=== PATIENT | male | born 1955 | race Caucasian/White ===

== ENCOUNTER 2022-01-31 15:28 | Emergency (ER) | payer OTHER, SELFPAY ==
[2022-01-31 15:33] VITALS: BP 146/73; PULSE 72; RESP 18; TEMP 36.3; O2SAT 93; BMI 30.8
--- NOTE | 2022-01-31 16:06 | ED.GENADULT ---
HPI - General Adult General Time Seen by Provider: 16:06 Date Seen: 01/31/22 Chief complaint: Extremity Pain/Injury, Upper Stated complaint: Pain in L arm Time Seen by Provider: 01/31/22 16:05 Source: patient and RN notes reviewed Mode of arrival: ambulatory Limitations: no limitations History of Present Illness HPI narrative: Patient started noticing left posterior lateral arm pain Sunday night will just sitting on the couch. He did not remember any injury. He denies any neck pain. He has tried [id number] medicine and the pain continues to get worse. Bothering him to sleep at times. The pain does seem like it is going into the shoulder posteriorly. There is no associated respiratory symptoms with this, no shortness of breath, no cough. No fevers chills. No chest pain with this, no sense of palpitations. Pain does not radiate down the arm, no associated numbness or tingling. He has had a scope done on his rotator cuff on this shoulder before. Sleeping was difficult last night, hurt to try to sleep on that shoulder, had difficult time getting position of comfort. Patient took 1500 mg of Tylenol this morning without any symptoms change. Did take 3 Aleve shortly before coming in and that did help for a while but he feels it is already wearing off. Pain is been getting worse Related Data Home Medications Medication Instructions Recorded Confirmed carbidopa ER 36.25 mg-levodopa 145 cap PO 01/31/22 mg capsule,extended release (Rytary) empagliflozin 25 mg tablet mg 01/31/22 (Jardiance) entacapone 200 mg tablet mg 01/31/22 gabapentin 300 mg capsule mg 01/31/22 metformin 1,000 mg tablet mg 01/31/22 pioglitazone 15 mg tablet mg 01/31/22 ropinirole 3 mg tablet mg 01/31/22 trazodone 100 mg tablet mg 01/31/22 Previous Rx's Medication Instructions Recorded naproxen 500 mg tablet 500 mg PO BID #30 tabs 01/31/22 Allergies Allergy/AdvReac Type Severity Reaction Status Date / Time amoxicillin Allergy Intermediate Verified 01/31/22 15:36 ampicillin Allergy Intermediate Verified 01/31/22 15:36 Review of Systems Status of ROS: Reports: 6 or more systems reviewed and unremarkable except as noted in History and below [facility] Medical History (Updated 01/31/22 @ 18:18 by Alejandra Fox MD) Diabetes Parkinsons Surgical History (Updated 01/31/22 @ 15:40 by Patricia Meyers RN) H/O shoulder surgery History of appendectomy History of tonsillectomy S/P cataract surgery Social History Smoking Status: Never smoker How often do you have a drink containing alcohol: never AUDIT-C Alcohol total score: 0 Non-prescribed substance use: denies use Exam Const: Vital Signs, click to edit/add: Vital Signs - 24 hr 01/31/22 15:33 01/31/22 17:20 Temperature 97.3 F L Pulse Rate [Pulse Oximeter] 72 63 Respiratory Rate 18 Blood Pressure [Ri ght Upper Arm] 146/73 H 138/71 Pulse Oximetry 93 93 Oxygen Delivery Me thod Room Air Room Air Documenting provider has reviewed patient's vital signs: yes Common normals: no apparent distress, oriented x3, no limitations, healthy appearing, alert and well nourished General appearance: cooperative, comfortable and well kempt HENMT: Common normals: normocephalic, head/scalp atraumatic, hearing grossly normal bilaterally and external ears normal Head and scalp: normocephalic and atraumatic External ear: external ears normal Eye: Common normals: PERRL, EOMs intact bilaterally, conjunctivae normal and no scleral icterus Conjunctiva: conjunctiva(e) normal Pupil: PERRL Neck & C-Spine: Common normals: full ROM (No facet impingement symptoms on range of motion), no lymphadenopathy, supple, no meningeal signs, no JVD and thyroid normal Thyroid: thyroid normal Lymph: Lymphatic: no lymphadenopathy noted Chest: Common normals: inspection of chest normal and palpation of chest normal Resp: Common normals: normal respiratory effort, no retractions, no use of accessory muscles and clear to auscultation bilaterally Auscultation: clear to auscultation bilaterally Cardio: Common normals: no JVD, regular rate, regular rhythm, S1 normal heart sound, S2 normal heart sound, no gallops, no clicks and no murmurs Rate: regular rate Rhythm: regular rhythm Heart sounds: S1 normal and S2 normal Extremity: Common normals: normal to inspection and normal capillary refill Other: No palpable tenderness over the glenohumeral joint or the clavicle. Has pain on range of motion with arc of abduction over 90?. Has pain when he attempts to reach behind his back with his left arm but not his right. When I have him externally rotate with his upper arm juxtaposed to the side there is pain. Internal rotation the same position does not bother him. He has palpable tenderness in the upper inner humeral area in muscular distribution. I feel no palpable abnormality of the bone. He has full range of motion of his elbow without any discomfort, no symptoms below the upper arm in this extremity. Biceps testing is intact. Does not have pain when he places his arm across his chest or when I do supraspinatus impingement testing. Neuro: Common normals: oriented x3 Sensorium/orientation: alert Meningeal signs: no meningeal signs Psych: Appearance: well kempt Course Course Hospital Course: I suspect rotator cuff pathology and will obtain an x-ray. He does have diabetes and is on cholesterol medicine and will just obtain a total CK to rule out myositis, obtain EKG and troponin. A do not suspect cardiac disease but do feel it prudent to rule this out. Reevaluation(s) Reevaluation #1: Reviewed with patient that his EKG is normal, awaiting radiology over-read of this shoulder xray. He wanted to know if they would be able to diagnose rotator cuff pathology off of xray. Reviewed with him that imaging for that really is with MRI which is not emergently needed. He very well may need follow up with orthopedics for this, they may opt to order this if felt needed/indicated. Awaiting labs as well to r/o cardiac pathology and myositis. Time: 17:22 Vital Signs Vital signs: Initial Vital Signs Temperature 97.3 F L 01/31/22 15:33 Temperature Source Temporal Artery Scan 01/31/22 15:33 Pulse Rate 72 01/31/22 15:33 Respiratory Rate 18 01/31/22 15:33 Blood Pressure 146/73 H 01/31/22 15:33 Blood Pressure Mean 97 01/31/22 15:33 Blood Pressure Position Supine 01/31/22 15:33 Pulse Oximetry 93 01/31/22 15:33 Oxygen Delivery Method 01/31/22 15:33 Vital Signs Temperature 97.3 F L 01/31/22 15:33 Pulse Rate 72 01/31/22 15:33 Respiratory Rate 18 01/31/22 15:33 Blood Pressure 146/73 H 01/31/22 15:33 Pulse Oximetry 93 01/31/22 15:33 Oxygen Delivery Method 01/31/22 15:33 Temperature 97.3 F L 01/31/22 15:33 Pulse Rate 63 01/31/22 17:20 Respiratory Rate 18 01/31/22 15:33 Blood Pressure 138/71 01/31/22 17:20 Pulse Oximetry 93 01/31/22 17:20 Oxygen Delivery Method 01/31/22 17:20 Medical Decision Making Lab Data Lab results reviewed: Yes I reviewed the patient's lab results Labs: Lab Results 01/31/22 01/31/22 Range/Units 16:50 16:50 Total Creatine Kinase 34 L (54-186) U/L Troponin I < 0.01 L (0.01-0.04) ng/mL Imaging Data X-ray left shoulder: Attestation: I have reviewed the pertinent imaging results. Radiologist's impression: Patient: JER DUMONT Facility:?[facility] Patient ID:?[id number] Site Patient ID:?[id number]. Site :?1955 Study:?XRay Shoulder Left -01/31/2022 4:32:56 PM Ordering Physician:Tamir Roberts Final Report: Indication: Pain, rotator cuff issues. Technique: Three views of the left shoulder. Comparison: None Findings/Impression: No acute fracture or dislocation. 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 Mild degenerative changes of the left acromioclavicular joint. Visualized portions of the left lung are grossly clear. Dictated by Yuriy Monson MD @ 01/31/2022 5:12:39 PM (Electronic Signature) ECG Data Attestation: I personally reviewed and interpreted this ECG as follows: (Sinus rhythm, 67 beats per minute) Prior ECG tracings: not available for review Critical Care Time Critical Care Time Critical Care Time: No Discharge Plan Discharge Clinical Impression: Disorder of left rotator cuff Patient Disposition: Home, Self-Care Condition: Stable Instructions: Shoulder Bursitis (ED), Shoulder Pain (ED) Additional Instructions: Take Tylenol 1000 mg 3 times a day baseline for pain. Use Naprosyn as prescribed. Can use tramadol at bedtime, needs 6-[address] Can try a senior shoulder, stop if it increases your pain. Need to follow up with Orthopedics. The orthopedic office for [place] can be contacted [phone] to get scheduled for followup. Otherwise follow up with primary care provider or orthopedist of choice. Tramadol is technically a narcotic, I have written for 50 mg, 1-2 at bedtime as needed, 10 prescribed. Activity Level: Activity as Tolerated Prescriptions: New naproxen 500 mg tablet 500 mg PO BID Qty: 30 2RF No Action pioglitazone 15 mg tablet Label Comments: TAKE ONE TABLET BY MOUTH ONE TIME DAILY ropinirole 3 mg tablet Label Comments: TAKE ONE TABLET BY MOUTH THREE TIMES DAILY entacapone 200 mg tablet Label Comments: TAKE ONE TABLET BY MOUTH THREE TIMES DAILY trazodone 100 mg tablet Label Comments: TAKE ONE OR TWO TABLETS BY MOUTH DAILY AT BEDTIME NEEDED FOR SLEEP metformin 1,000 mg tablet Label Comments: TAKE ONE TABLET BY MOUTH TWICE A DAY WITH MEALS gabapentin 300 mg capsule Label Comments: TAKE ONE CAPSULE BY MOUTH THREE TIMES DAILY Jardiance 25 mg tablet Label Comments: TAKE ONE TABLET BY MOUTH ONE TIME DAILY Rytary 36.25-145 mg capsule, extended release PO Label Comments: TAKE THREE CAPSULES BY MOUTH THREE TIMES DAILY Stand Alone Forms: My[facility] Info Instructions
--- NOTE | 2022-01-31 16:16 | CRLHL7_ITS ---
For Patients: As a result of the Cures Act, medical imaging exams and procedure reports are released immediately into your electronic medical record. You may view this report before your referring provider. If you have questions, please contact your health care provider. Indication: Pain, rotator cuff issues. Technique: Three views of the left shoulder. Comparison: None Findings/Impression: No acute fracture or dislocation. 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 Mild degenerative changes of the left acromioclavicular joint. Visualized portions of the left lung are grossly clear. Dictated by Yuriy Monson MD @ 01/31/2022 5:12:39 PM (Electronically Signed)
[2022-01-31 17:20] VITALS: BP 138/71; PULSE 63; O2SAT 93
[2022-01-31 17:27] LABS: Creatine Kinase* 34 U/L (54-186)
[2022-01-31 17:58] LABS: Troponin I* < 0.01 ng/mL (0.01-0.04)
== END 2022-01-31 18:49 | disposition home or self-care (01) ==
PROVIDERS: Emergency Provider Family Medicine
DX: M75.52 Bursitis of left shoulder (principal)
CPT/HCPCS: 36415; 73030; 82550; 84484; 93005; 99283; 99284

== ENCOUNTER 2022-02-17 14:53 | Outpatient (CLI) | payer OTHER, SELFPAY ==
--- NOTE | 2022-02-17 15:30 | MR_ITS ---
[address] [address] Phone:?[phone] Fax:?[phone] Referring Physician Information: Malachi Dixon M.D. [id number] [facility] [address] Phone:?[phone] Fax:?[phone] Patient:?Cristobal Lai D.O.B:?1955 Sex:?Male Phone:?[phone] [facility] MRN:?[id number] Exam Date:?02/17/2022 ? EXAM: MRI of the LEFT SHOULDER, without contrast CLINICAL: Male, 66 years old, with left shoulder pain. INDICATION: Evaluate for rotator cuff tear versus other shoulder derangement etiology. PRIOR SURGERY: None reported. PLAIN FILMS: None available. COMPARISONS: No prior MRIs available. TECHNICAL: Using a 1.5T MR scanner and a localizing shoulder surface coil: 3.0 mm?coronal obliques: PD, T2, STIR 3.0 mm?sagittal obliques: PD, T2 3.0 mm?axials: PD, T2 SEDATION: None. CONTRAST: None. IMPRESSION: 1. Rather broad-based deep surface greater than superficial surface tendinosis and attenuation of the supraspinatus into adjacent infraspinatus tendons, but without full-thickness tear. 2. Inferior hypertrophy of the acromioclavicular joint contributes encroachment upon the subacromial space, whereas acromiohumeral distance otherwise appears normal. 3. Mild subacromial bursal edema. 4. Mild tendinosis of the distal intra-articular segment of the long head of the biceps tendon. 5. No labral tears. 6. No glenohumeral chondromalacia/osteoarthritis. FINDINGS: Glenohumeral joint: Effusion/cyst: Physiologic effusion. No paralabral ganglion cyst. Articular cartilage: Humeral head: No osteochondral abnormalities. Glenoid: No osteochondral abnormalities. Loose bodies: No demonstrable loose bodies. Inferior glenohumeral ligament/axillary recess: The axillary recess is normal in thickness and signal. No evidence of adhesive capsulitis or capsuloligamentous injury. Labrum: No labral tears. Bones: Proximal humerus: No fracture or marrow edema/pathology. No humeral Hill-Sachs or reverse Hill-Sachs lesion/impaction or contusion. Glenoid: No fracture or marrow edema/pathology. No osseous Bankart lesion. Coracoacromial arch: Acromion morphology: Type I acromion without defined subacromial spur/enthesophyte. No mesoacromion or preacromion. Acromiohumeral space: Widely patent. Coracohumeral space: Widely patent. Acromioclavicular joint: Joint: Inferior hypertrophy of the distal clavicular facet of the acromioclavicular joint contributes encroachment upon the subacromial space where it abuts and mildly encroaches upon contour of the underlying supraspinatus myotendinous junction (coronal PD series 5, image 10; sagittal PD series 7, image 14). Ligaments: Coracoclavicular ligaments are intact. Bursae: Subacromial-subdeltoid: Mild subacromial bursal edema (coronal STIR series 4, images 15-9). Subcoracoid: No convincing subcoracoid bursal thickening/bursitis. Rotator cuff and muscles/tendons: Supraspinatus-infraspinatus: Relatively chronic-appearing deep surface tendinosis and attenuation of the distal supraspinatus tendon and adjacent anterior infraspinatus tendon involves approximately 50% tendon thickness without full-thickness tear although note also made of a smaller area of shallow superficial bursal surface fraying/wear of the distal mid supraspinatus tendon (coronal images 16-8). No tendon or myotendinous junction retraction. No muscle atrophy. Teres minor: No tendinopathy, tear or atrophy. Subscapularis: No tendinopathy, tear or atrophy. Deltoid: No strain or atrophy. Biceps tendon, long head: Mild thickening in keeping with mild tendinosis of the distal intra-articular segment of the long head of the biceps tendon (sagittal PD series 7, images 10-7). Axilla: No axillary masses or abnormally enlarged lymphadenopathy. [facility] Electronically signed on 02/20/2022 6:30:00 AM by Solo Mcdaniel M.D.
== END 2022-02-17 14:54 | disposition home or self-care (01) ==
LOC: MRI 14:55
PROVIDERS: Visit Provider Orthopaedic Surgery Sports Medicine
DX: M25.512 Pain in left shoulder (principal); M75.102 Unspecified rotator cuff tear or rupture of left shoulder, not specified as traumatic; S46.002A Unspecified injury of muscle(s) and tendon(s) of the rotator cuff of left shoulder, initial encounter
CPT/HCPCS: 73221

== ENCOUNTER 2022-09-06 12:58 | Outpatient (CLI) | payer OTHER, SELFPAY | END 2022-09-06 12:59 | disposition home or self-care (01) | LOC: AMB 09-07 00:18 | PROVIDERS: Visit Provider Family Medicine | DX: R41.82 Altered mental status, unspecified (principal); R47.81 Slurred speech | CPT/HCPCS: A0425; A0427 ==

== ENCOUNTER 2022-09-06 13:26 | Emergency (ER) | payer OTHER, SELFPAY ==
[2022-09-06] VITALS (9 sets, daily range): BP systolic 129; BP diastolic 82; PULSE 62–80; RESP 18; TEMP 36.8; O2SAT 95–98
--- NOTE | 2022-09-06 14:03 | ED.NEUROSD ---
HPI - Neuro Symptoms/Deficit General Time Seen by Provider: 14:04 Date Seen: 09/06/22 Chief Complaint: Neuro Symptoms/Altered Deficit Stated Complaint: Stroke symptoms Time Seen by Provider: 09/06/22 13:55 Source: patient, EMS and RN notes reviewed Mode of arrival: EMS Limitations: no limitations History of Present Illness HPI Narrative: Patient is a 67-year-old male with underlying Parkinson's who is coming in with episodic slurred speech. It has been happening intermittently today. He denies feeling ill, has not had any cough or cold symptoms, no fevers or chills. He is noted to have a right arm tremor which is not abnormal. His daughter is present, she feels at times she notes some speech change but it is intermittent. He reportedly has had a history of a TIA. His daughter states she was with them for 1 of the TIAs and just seemed to be out of it, altered. They cannot give me a specific neurologic symptom. Patient feels like his speech is normal now. Is not aware of any changes in his face, no appreciable differences in movement of his arms or legs. His daughter notes he has had a history of concussions before as well. Denies any current fall. Yesterday did note some palpitations or fluttering sensation over on his left chest. No pain. Is not noted to have a history of arrhythmia or atrial fibrillation. Reviewed with them that his initial EKG looks normal and on the monitor thus far, have seen no arrhythmia. Timing confirmed by: family member Location: speech History of same: No (Not that they are aware of) Related Data Home Medications Medication Instructions Recorded Confirmed empagliflozin 25 mg tablet mg 01/31/22 02/21/22 (Jardiance) entacapone 200 mg tablet mg 01/31/22 02/21/22 gabapentin 300 mg capsule mg 01/31/22 02/21/22 metformin 1,000 mg tablet mg 01/31/22 02/21/22 pioglitazone 15 mg tablet mg 01/31/22 02/21/22 ropinirole 3 mg tablet mg 01/31/22 02/21/22 trazodone 100 mg tablet mg 01/31/22 02/21/22 carbidopa ER 23.75 mg-levodopa 95 cap PO DAILY 02/21/22 02/21/22 mg capsule,extended release Previous Rx's Medication Instructions Recorded naproxen 500 mg tablet 500 mg PO BID #30 tabs 01/31/22 Allergies Allergy/AdvReac Type Severity Reaction Status Date / Time amoxicillin Allergy Intermediate Verified 02/21/22 14:29 ampicillin Allergy Intermediate Verified 02/21/22 14:29 Review of Systems Status of ROS: Reports: 10 or more systems reviewed and unremarkable except as noted in History and below [facility] Medical History (Updated 09/06/22 @ 17:15 by Alejandra Fox MD) Anxiety ?F41.9 - Anxiety disorder, unspecified (ICD-10) Arthritis ?M19.90 - Unspecified osteoarthritis, unspecified site (ICD-10) Depression ?F32.A - Depression, unspecified (ICD-10) Detached retina ?H33.20 - Serous retinal detachment, unspecified eye (ICD-10) Diabetes ?E11.9 - Type 2 diabetes mellitus without complications (ICD-10) Neck pain ?M54.2 - Cervicalgia (ICD-10) Parkinsons ?G20 - Parkinson's disease (ICD-10) Stroke ?I63.9 - Cerebral infarction, unspecified (ICD-10) Surgical History H/O shoulder surgery (~2007) History of appendectomy History of tonsillectomy S/P cataract surgery Family History (Updated 02/07/22 @ 13:26 by Annalee Abraham ~ RN, RN) Other Diabetes Skin cancer Stroke Social History (Reviewed 02/21/22 @ 14:31 by Dalila Spivey ~ [facility] PRICER, [facility]) Smoking Status: Never smoker Do you use any of these nicotine containing products: None Second hand tobacco smoke exposure: No How often do you have a drink containing alcohol: never How often do you have six or more drinks on one occasion: Never AUDIT-C Alcohol total score: 0 Non-prescribed substance use: denies use service: No Exam Const: Vital Signs, click to edit/add: Vital Signs - 24 hr 09/06/22 13:32 09/06/22 14:10 09/06/22 14:18 Temperature 98.3 F Pulse Rate 72 Pulse Rate [Right Pulse Oximeter] 80 Respiratory Rate 18 Blood Pressure [Ri ght Upper Arm] 129/82 Pulse Oximetry 95 97 96 Oxygen Delivery Me thod Room Air 09/06/22 14:30 09/06/22 15:00 Temperature Pulse Rate 69 68 Pulse Rate [Right Pulse Oximeter] Respiratory Rate Blood Pressure [Ri ght Upper Arm] Pulse Oximetry 97 96 Oxygen Delivery Me thod Documenting provider has reviewed patient's vital signs: yes Common normals: no apparent distress, average body habitus, oriented x3, no limitations, healthy appearing and alert General appearance: cooperative, comfortable, well kempt, well developed and frail appearing Orientation/consciousness: Yes awake, Yes oriented to person, Yes oriented to place and Yes oriented to time HENMT: Common normals: normocephalic, head/scalp atraumatic, hearing grossly normal bilaterally, external nose normal, nasal mucous membranes and turbinates normal, moist oral mucous membranes, oropharynx normal, dentition normal and gingiva normal Head and scalp: normocephalic and atraumatic Nose: external nose normal and nasal mucous membranes and turbinates normal Eye: Common normals: PERRL, EOMs intact bilaterally, conjunctivae normal and no scleral icterus Conjunctiva: conjunctiva(e) normal Pupil: PERRL Neck & C-Spine: Common normals: full ROM, no lymphadenopathy, supple, no meningeal signs, no JVD and thyroid normal Thyroid: thyroid normal Resp: Common normals: normal respiratory effort, no retractions, no use of accessory muscles and clear to auscultation bilaterally Auscultation: clear to auscultation bilaterally Cardio: Common normals: no JVD, regular rate, regular rhythm, S1 normal heart sound, S2 normal heart sound, no gallops, no clicks and no murmurs Rate: regular rate Rhythm: regular rhythm Heart sounds: S1 normal and S2 normal GI: Common normals: Normal to inspection, nondistended, normoactive bowel sounds present, soft to palpation, non-tender, no hepatosplenomegaly and no masses Palpation: soft and no hepatosplenomegaly Neuro: Common normals: oriented x3 Sensorium/orientation: awake, alert, oriented to person, oriented to place and oriented to time Meningeal signs: no meningeal signs Other: Speech seems normal, symmetrical facial function. Normal sensation of his face and extremities. Can lift each leg off the bed independently. Baseline has a right arm tremor that is noted. Strength is about 3/5 and seems to be symmetric in both of his upper extremities. Seems to have global diminished strength. Psych: Appearance: well kempt Course Course Hospital Course: Will proceed with head CT followed by a angio CT of head neck. He will be maintained on cardiac monitoring to ensure no underlying arrhythmia, pulse oximetry as well. Will get appropriate labs including cardiac labs. His blood pressure is not elevated at this time but may run lower given that he has Parkinson's. Parkinson's could affect presentation of his neurologic status. Believe we should proceed with the head and neck angio of the head CT is not showing any bleed as it may be difficult to differentiate neurologic changes in this patient. May need to talk to Stroke Neuro. Does not seem to have any evidence of any infectious etiology at this time. Reevaluation(s) Reevaluation #1: Have reviewed with patient and his son, son is an EMT and he was allowed to come in and switch out with his sister, that head CT and CTA are not showing any acute pathology. He has a normal troponin, no evidence of any arrhythmia on his monitoring thus far. Will attempt to talk to Stroke Neurology, see if they have any additional recommendations. Do wonder if some of the speech issues could also be contributed to by Parkinson's. Time: 15:58 Reevaluation #2: Have reviewed my conversation with the stroke neurologist with patient and his son. Discussed that the stroke neurologist feels this to be less likely vascular ischemic process but maybe more encephalopathic or symptomatic changes of a brain that is more susceptible. There is certainly no localizing features right now. He agrees that autonomic problems orthostatic hypotension could be a possible causative etiology here. Confirmed with the patient that he does take 81 mg of aspirin daily. Did discuss that he could consider going on a statin given that there is some mild atherosclerotic changes seen in his right coronary artery. There certainly nothing to identify a stroke. There would be certainly more likely etiologies per the stroke neurologist rather than a TIA. His son whom is a police and fire dispatcher is here. He notes when he talked to his dad earlier it was quite slurred speech. He is improved. His lactate is up. He states he has had some Gatorade in a chocolate milk and a little bit of apple juice. It certainly sounds like he could be mildly dry. Were going to give him a 500 mL fluid bolus and then ambulate him. They understand that we cannot 100% rule out a TIA but the fact that he is back to baseline and we have more plausible etiologies to consider, will likely discharge to home with recommendations to follow up with his primary care provider as well as his neurologist. He was not hypertensive on arrival which is another thing reviewed with the patient and his son that generally would point against cerebral ischemic disease. Time: 16:36 Reevaluation #3: Nursing staff notes that patient ambulated quite well, is feeling better. No recurrent symptoms. Time: 17:22 Consultations Consultation #1: Spoke with Dr. Preciado the stroke neurologist, had a 9 minute 33 second conversation. Please see above where I review with the patient. Time: 16:28 Vital Signs Vital signs: Initial Vital Signs Temperature 98.3 F 09/06/22 13:32 Temperature Source Temporal Artery Scan 09/06/22 13:32 Pulse Rate 80 09/06/22 13:32 Respiratory Rate 18 09/06/22 13:32 Blood Pressure 129/82 09/06/22 13:32 Blood Pressure Mean 97 09/06/22 13:32 Blood Pressure Position Sitting 09/06/22 13:32 Pulse Oximetry 95 09/06/22 13:32 Oxygen Delivery Method Room Air 09/06/22 13:32 Vital Signs Temperature 98.3 F 09/06/22 13:32 Pulse Rate 80 09/06/22 13:32 Respiratory Rate 18 09/06/22 13:32 Blood Pressure 129/82 09/06/22 13:32 Pulse Oximetry 95 09/06/22 13:32 Oxygen Delivery Method Room Air 09/06/22 13:32 Temperature 98.3 F 09/06/22 13:32 Pulse Rate 68 09/06/22 15:00 Respiratory Rate 18 09/06/22 13:32 Blood Pressure 129/82 09/06/22 13:32 Pulse Oximetry 96 09/06/22 15:00 Oxygen Delivery Method Room Air 09/06/22 13:32 MDM - Neuro Symptoms/Deficit Lab Data Attestation: I reviewed the patient's lab results. Labs: Lab Results 09/06/22 Range/Units 14:28 WBC 7.17 (4.50-11.00) K/uL RBC 5.06 (4.30-5.90) m/uL Hgb 15.1 (13.5-17.5) gm/dL Hct 44.2 (37.0-53.0) % MCV 87 (80-100) fL MCH 30 (26-34) pg MCHC 34 (32-36) gm/dL RDW Coeff of Christine 13.1 (11.5-15.5) % Plt Count 193 (140-440) K/uL Neut % (Auto) 42.2 (42.0-72.0) % Lymph % (Auto) 46.6 H (20-44) % [place] % (Auto) 8.6 (0.0-11.0) % Eos % (Auto) 1.5 (0.0-7.0) % Baso % (Auto) 0.4 (0.0-3.0) % Neut # (Auto) 3.02 (1.7-7.0) K/uL Lymph # (Auto) 3.30 H (0.90-2.90) K/uL Sol[place] # (Auto) 0.60 (0.00-0.90) K/UL Eos # (Auto) 0.11 (0.00-0.50) K/uL Baso # (Auto) 0.03 (0.00-0.30) K/uL Sodium 136 (135-149) mmol/L Potassium 4.2 (3.6-5.1) mmol/L Chloride 103 (96-114) mmol/L Carbon Dioxide 23 (20-32) mmol/L BUN 10 (7-30) mg/dL Creatinine 0.5 (0.5-1.5) mg/dL Estimated GFR 113 ml/min Glucose 279 H (60-115) mg/dL Lactate 3.4 H (0.5-1.9) mmol/L Calcium 8.6 (8.4-10.6) mg/dL Magnesium 1.7 (1.5-2.6) mg/dL Total Bilirubin 0.4 (0.1-1.5) mg/dL AST 26 (12-35) U/L ALT 26 (4-50) U/L Alkaline Phosphatase 57 (40-150) U/L C-Reactive Protein 0.6 (0.5-1.0) mg/dL NT-Pro-B Natriuret Pep 185 pg/mL Total Protein 6.7 (6.0-8.3) g/dL Albumin 3.8 (3.3-5.0) g/dL SARS-CoV-2 (PCR) Negative SARS-CoV-2 (Negative) POC Troponin I 0.00 L (0.01-0.04) ng/ml Imaging Data CT scan - head: Attestation: I have reviewed the pertinent imaging results. Radiologist's impression: Patient: JER DUMONT Facility:?[facility] Patient ID:?[id number] Site Patient ID:?[id number]. Site :?1955 Study:?CT Head WO-09/06/2022 3:01:26 PM Ordering Physician:?Ruddy Roberts Final Report: INDICATION: Acute stroke, slurred speech. TECHNIQUE: CT head without contrast. FINDINGS: There is no intracranial hemorrhage. The liu white matter differentiation is maintained. The ventricles and cisterns are clear. IMPRESSION: No acute intracranial abnormality at noncontrast CT. Please note that all CT scans at this facility use dose modulation, iterative reconstruction, and/or weight-based dosing when appropriate to reduce radiation dose to as low as reasonably achievable. Dictated by Haja Gary MD @ 09/06/2022 3:12:17 PM (Electronic Signature) CT- Other: Attestation: I have reviewed the pertinent imaging results. Radiologist's impression: Patient: JER DUMONT Facility:?[facility] Patient ID:?[id number] Site Patient ID:?[id number]. Site :?1955 Study:?CT Neck Angio Angio CTA HEAD AND NECK-09/06/2022 3:05:36 PM Ordering Physician:?Ruddy Roberts Final Report: INDICATION: Acute stroke, slurred speech. TECHNIQUE: CTA neck with contrast bolus tracking and 3D MIP reconstruction. FINDINGS: There is carotid atherosclerosis bilaterally. There is a mild stenosis at the origin of the right ICA, less than 50% by NASCET. There is no significant left carotid artery stenosis or dissection. There is no significant vertebral artery stenosis or dissection. The soft tissues of the neck are within normal limits. The cervical spine is in normal alignment. IMPRESSION: Carotid atherosclerosis with a mild stenosis of the proximal right ICA, less than 50% by NASCET. Please note that all CT scans at this facility use dose modulation, iterative reconstruction, and/or weight-based dosing when appropriate to reduce radiation dose to as low as reasonably achievable. Dictated by Haja Gary MD @ 09/06/2022 3:18:37 PM (Electronic Signature) Patient: JER DUMONT Facility:?[facility] Patient ID:?[id number] Site Patient ID:?[id number]. Site :?1955 Study:?CT Head Angio Angio CTA HEAD AND NECK-09/06/2022 3:06:17 PM Ordering Physician:Tamir Roberts Final Report: INDICATION: Acute stroke, slurred speech. TECHNIQUE: CTA head with contrast bolus tracking and 3D MIP reconstruction. FINDINGS: There is normal opacification of the intracranial vasculature. There is no large vessel occlusion. No aneurysm is identified. IMPRESSION: Unremarkable head CTA. Please note that all CT scans at this facility use dose modulation, iterative reconstruction, and/or weight-based dosing when appropriate to reduce radiation dose to as low as reasonably achievable. Dictated by Haja Gary MD @ 09/06/2022 3:15:22 PM (Electronic Signature) ECG Data Attestation: I personally reviewed and interpreted this ECG as follows: (Normal sinus rhythm, 78 beats per minute. No ischemia, no arrhythmia. QT corrected 435 milliseconds.) ECG interpretation date: 09/06/22 ECG interpretation time: 14:21 Prior ECG tracings: not available for review Critical Care Time Critical Care Time Critical Care Time: No Discharge Plan Discharge Clinical Impression: Speech abnormality, Parkinsons Patient Disposition: Home, Self-Care Condition: Stable Instructions: Transient Ischemic Attack (ED), Ischemic Stroke (DC) Additional Instructions: Information is provided for Education on TIA and stroke. Would consider you talking to her primary care provider about going on a statin such as Lipitor. There was non occlusive atherosclerotic disease seen in the right coronary artery. There was no evidence of stroke pathology. There are autonomic issues in orthostatic blood pressure issues that can develop with Parkinson's. It is important that you drink adequately to maintain your blood volume and not become dehydrated. It is recommended that you follow-up with your primary care provider as well as the neurologist. Have provided copies of your imaging tests that you can take to them. If you do have recurrent issues, other issues concerning for possible stroke pathology, do recommend re-evaluation in the emergency room in the interim. Definitely stay on your 81 mg aspirin. Activity Level: Activity as Tolerated Prescriptions: No Action carbidopa-levodopa 23.75-95 mg capsule, extended release PO DAILY pioglitazone 15 mg tablet Patient Comments: TAKE ONE TABLET BY MOUTH ONE TIME DAILY ropinirole 3 mg tablet Patient Comments: TAKE ONE TABLET BY MOUTH THREE TIMES DAILY entacapone 200 mg tablet Patient Comments: TAKE ONE TABLET BY MOUTH THREE TIMES DAILY trazodone 100 mg tablet Patient Comments: TAKE ONE OR TWO TABLETS BY MOUTH DAILY AT BEDTIME NEEDED FOR SLEEP metformin 1,000 mg tablet Patient Comments: TAKE ONE TABLET BY MOUTH TWICE A DAY WITH MEALS gabapentin 300 mg capsule Patient Comments: TAKE ONE CAPSULE BY MOUTH THREE TIMES DAILY Jardiance 25 mg tablet Patient Comments: TAKE ONE TABLET BY MOUTH ONE TIME DAILY naproxen 500 mg tablet 500 mg PO BID Qty: 30 2RF Follow Up/Referrals: Provider,Not a Local [Primary Care Provider] - Stand Alone Forms: [facility] Info Instructions
--- NOTE | 2022-09-06 14:10 | CRLHL7_ITS ---
For Patients: As a result of the Century Cures Act, medical imaging exams and procedure reports are released immediately into your electronic medical record. You may view this report before your referring provider. If you have questions, please contact your health care provider. INDICATION: Acute stroke, slurred speech. TECHNIQUE: CT head without contrast. FINDINGS: There is no intracranial hemorrhage. The liu white matter differentiation is maintained. The ventricles and cisterns are clear. IMPRESSION: No acute intracranial abnormality at noncontrast CT. Please note that all CT scans at this facility use dose modulation, iterative reconstruction, and/or weight-based dosing when appropriate to reduce radiation dose to as low as reasonably achievable. Dictated by Haja Gary MD @ 09/06/2022 3:12:17 PM (Electronically Signed)
--- NOTE | 2022-09-06 14:10 | CRLHL7_ITS ---
For Patients: As a result of the Century Cures Act, medical imaging exams and procedure reports are released immediately into your electronic medical record. You may view this report before your referring provider. If you have questions, please contact your health care provider. INDICATION: Acute stroke, slurred speech. TECHNIQUE: CTA head with contrast bolus tracking and 3D MIP reconstruction. FINDINGS: There is normal opacification of the intracranial vasculature. There is no large vessel occlusion. No aneurysm is identified. IMPRESSION: Unremarkable head CTA. Please note that all CT scans at this facility use dose modulation, iterative reconstruction, and/or weight-based dosing when appropriate to reduce radiation dose to as low as reasonably achievable. Dictated by Haja Gary MD @ 09/06/2022 3:15:22 PM (Electronically Signed)
--- NOTE | 2022-09-06 14:10 | CRLHL7_ITS ---
For Patients: As a result of the Century Cures Act, medical imaging exams and procedure reports are released immediately into your electronic medical record. You may view this report before your referring provider. If you have questions, please contact your health care provider. INDICATION: Acute stroke, slurred speech. TECHNIQUE: CTA neck with contrast bolus tracking and 3D MIP reconstruction. FINDINGS: There is carotid atherosclerosis bilaterally. There is a mild stenosis at the origin of the right ICA, less than 50% by NASCET. There is no significant left carotid artery stenosis or dissection. There is no significant vertebral artery stenosis or dissection. The soft tissues of the neck are within normal limits. The cervical spine is in normal alignment. IMPRESSION: Carotid atherosclerosis with a mild stenosis of the proximal right ICA, less than 50% by NASCET. Please note that all CT scans at this facility use dose modulation, iterative reconstruction, and/or weight-based dosing when appropriate to reduce radiation dose to as low as reasonably achievable. Dictated by Haja Gary MD @ 09/06/2022 3:18:37 PM (Electronically Signed)
[2022-09-06 14:36] LABS: Lactate* 3.4 mmol/L (0.5-1.9)
[2022-09-06 14:38] LABS: Basophils Absolute Auto 0.03 K/uL (0.00-0.30); Basophils Percent Auto 0.4 % (0.0-3.0); Eosinophils Absolute Auto 0.11 K/uL (0.00-0.50); Eosinophils Percent Auto 1.5 % (0.0-7.0); Hematocrit 44.2 % (37.0-53.0); Hemoglobin* 15.1 gm/dL (13.5-17.5); Immature Granulocytes Abs Auto 0.05 K/uL (0.00-0.30); Immature Granulocytes Pct Auto 0.7 %; Lymphocytes Percent Auto 46.6 % (20-44); Mean Corpuscular HGB Conc 34 gm/dL (32-36); Mean Corpuscular Hemoglobin 30 pg (26-34); Mean Corpuscular Volume 87 fL (80-100); Monocytes Percent Auto 8.6 % (0.0-11.0); Neutrophils Absolute Auto 3.02 K/uL (1.7-7.0); Neutrophils Percent Auto 42.2 % (42.0-72.0); Platelet Count* 193 K/uL (140-440); RDW Coefficient of Variation % 13.1 % (11.5-15.5); Red Blood Count 5.06 m/uL (4.30-5.90); White Blood Count* 7.17 K/uL (4.50-11.00)
[2022-09-06 14:44] LABS: Slide Review Reflex No
[2022-09-06 14:54] LABS: Albumin* 3.8 g/dL (3.3-5.0); Chloride* 103 mmol/L (96-114); Potassium* 4.2 mmol/L (3.6-5.1); Sodium* 136 mmol/L (135-149)
[2022-09-06 14:56] LABS: Creatinine* 0.5 mg/dL (0.5-1.5); Estimated Glomerular Filt Rate 113 ml/min
[2022-09-06 14:57] LABS: Alkaline Phosphatase* 57 U/L (40-150); Aspartate Amino Transferase* 26 U/L (12-35); Bilirubin Total* 0.4 mg/dL (0.1-1.5); Blood Urea Nitrogen* 10 mg/dL (7-30); Carbon Dioxide* 23 mmol/L (20-32); Glucose* 279 mg/dL (60-115); Total Protein* 6.7 g/dL (6.0-8.3)
[2022-09-06 14:58] LABS: Alanine Aminotransferase* 26 U/L (4-50); Calcium* 8.6 mg/dL (8.4-10.6); Magnesium* 1.7 mg/dL (1.5-2.6)
[2022-09-06 15:00] LABS: C Reactive Protein* 0.6 mg/dL (0.5-1.0)
[2022-09-06 15:06] LABS: NT Pro B Type NatriureticPept* 185 pg/mL
[2022-09-06 15:22] LABS: SARS PCR* Negative SARS-CoV-2 (Negative)
[2022-09-06] MEDS: 0.9 % SODIUM CHLORIDE 500 ML 500 ML IV (16:42)
== END 2022-09-06 17:34 | disposition home or self-care (01) ==
PROVIDERS: Emergency Provider Family Medicine
DX: R47.81 Slurred speech (principal); G20 Parkinson's disease
CPT/HCPCS: 36415; 70450; 70496; 70498; 80053; 83605; 83735; 83880; 84484; 85025; 86140; 87635; 93005; 94761; 99285; J7120; Q9967

== ENCOUNTER 2023-11-26 10:15 | Outpatient (RCR) | payer OTHER, SELFPAY | END 2024-02-08 16:40 | disposition home or self-care (01) | PROVIDERS: Visit Provider Nurse Practitioner Family | DX: I69.351 Hemiplegia and hemiparesis following cerebral infarction affecting right dominant side (principal); G20.A1 Parkinson's disease without dyskinesia, without mention of fluctuations; Z51.89 Encounter for other specified aftercare | CPT/HCPCS: 97110; 97112; 97161 ==

== ENCOUNTER 2023-11-30 23:14 | Outpatient (CLI) | payer OTHER, SELFPAY | END 2023-11-30 23:15 | disposition home or self-care (01) | LOC: AMB 12-01 07:40 | PROVIDERS: Visit Provider Internal Medicine | DX: S79.911A Unspecified injury of right hip, initial encounter (principal); W01.0XXA Fall on same level from slipping, tripping and stumbling without subsequent striking against object, initial encounter; Y92.009 Unspecified place in unspecified non-institutional (private) residence as the place of occurrence of the external cause | CPT/HCPCS: A0425; A0433 ==

== ENCOUNTER 2023-11-30 23:53 | Inpatient (IN) | payer OTHER, SELFPAY ==
[2023-11-30 23:58] VITALS: BP 139/80; PULSE 76; RESP 16; TEMP 36.3; O2SAT 93; BMI 30.1
[2023-12-01] VITALS (37 sets, daily range): BP systolic 109–140; BP diastolic 60–87; PULSE 73–97; RESP 12–18; TEMP 36.1–37.6; O2SAT 90–99; BMI 30.6
--- NOTE | 2023-12-01 00:01 | CRLHL7_ITS ---
For Patients: As a result of the Century Cures Act, medical imaging exams and procedure reports are released immediately into your electronic medical record. You may view this report before your referring provider. If you have questions, please contact your health care provider. Indication: Fall Technique: Noncontrast CT through the cervical spine with multiplanar reformats Comparison: None Findings: Alignment: Nonspecific straightening of the normal lordotic curvature. Bones: No acute fracture. No lytic or blastic lesion. Cervical levels: No acute abnormality appreciated. Mild degenerative disc and facet disease. Soft tissues: No acute abnormality appreciated. Impression: No acute abnormality appreciated. Please note that all CT scans at this facility use dose modulation, iterative reconstruction, and/or weight-based dosing when appropriate to reduce radiation dose to as low as reasonably achievable. Dictated by Tong Mackenzie MD @ 12/01/2023 1:52:10 AM (Electronically Signed)
--- NOTE | 2023-12-01 00:01 | CRLHL7_ITS ---
For Patients: As a result of the Century Cures Act, medical imaging exams and procedure reports are released immediately into your electronic medical record. You may view this report before your referring provider. If you have questions, please contact your health care provider. Indication: Fall Technique: Noncontrast CT through the head with multiplanar reformats Comparison: None Findings: Brain: No acute hemorrhage. No acute infarct. No significant mass effect or midline shift. No gross evidence of a mass lesion or cerebral edema. Trace chronic microvascular ischemic disease. Ventricles: No acute abnormality appreciated. Orbits, sinuses, mastoids: No acute abnormality appreciated. Calvarium and soft tissues: No acute abnormality appreciated. Impression: No acute abnormality appreciated. Please note that all CT scans at this facility use dose modulation, iterative reconstruction, and/or weight-based dosing when appropriate to reduce radiation dose to as low as reasonably achievable. Dictated by Tong Mackenzie MD @ 12/01/2023 1:53:52 AM (Electronically Signed)
--- NOTE | 2023-12-01 00:01 | CRLHL7_ITS ---
For Patients: As a result of the Cures Act, medical imaging exams and procedure reports are released immediately into your electronic medical record. You may view this report before your referring provider. If you have questions, please contact your health care provider. Indication: Fall. Technique: Right hip 4 views. Comparison: None. Findings: Acute, minimally displaced right proximal femur intertrochanteric fracture. Mild degenerative changes of the bilateral hips. No other fracture identified. No aggressive osseous lesion. No displacement. Impression: Acute, minimally displaced right proximal femur intertrochanteric fracture. Dictated by Cristobal Roberts MD @ 12/01/2023 1:48:56 AM (Electronically Signed)
--- NOTE | 2023-12-01 00:01 | CRLHL7_ITS ---
For Patients: As a result of the Century Cures Act, medical imaging exams and procedure reports are released immediately into your electronic medical record. You may view this report before your referring provider. If you have questions, please contact your health care provider. INDICATION: Fall. TECHNIQUE: Chest 1 view. COMPARISON: Chest and rib radiographs 07/31/2021. FINDINGS: Low lung volumes. Blunting of the left costophrenic angle could be due to atelectasis or small pleural effusion. No focal consolidation or pneumothorax. Heart size and pulmonary vasculature are within normal limits. No acute osseous abnormality identified. IMPRESSION: Low lung volumes with left basilar atelectasis and/or small pleural effusion. Dictated by Destiney Sherman MD @ 12/01/2023 1:50:12 AM (Electronically Signed)
--- NOTE | 2023-12-01 00:09 | ED.FALL ---
HPI - Fall General Chief Complaint: Fall/Minor Trauma Stated Complaint: Fall Time Seen by Provider: 11/30/23 23:57 History of Present Illness HPI Narrative: Patient is a 68-year-old gentleman who stumbled over computer cord tonight striking the front portion of his head on the wall and falling to the ground. Patient did not lose consciousness. He has no neck pain. He has no bruising or bleeding. Patient has extreme pain in the right hip. He has had no cough no shortness of breath no chest wall pain. No abdominal pain. Patient has not had any incontinence. Patient unable to get up called for an ambulance was brought to the emergency room. Related Data Home Medications ?Medication ?Instructions ?Recorded ?Confirmed empagliflozin 25 mg tablet mg 01/31/22 10/11/23 (Jardiance) entacapone 200 mg tablet mg 01/31/22 10/11/23 gabapentin 300 mg capsule mg 01/31/22 10/11/23 metformin 1,000 mg tablet mg 01/31/22 10/11/23 pioglitazone 15 mg tablet mg 01/31/22 10/11/23 ropinirole 3 mg tablet mg 01/31/22 10/11/23 trazodone 100 mg tablet mg 01/31/22 10/11/23 acetaminophen 300 mg-codeine 30 mg 1 tab PO 3XD PRN 10/11/23 10/11/23 tablet carbidopa ER 36.25 mg-levodopa 145 3 cap PO 3XD 10/11/23 10/11/23 mg capsule,extended release (Rytary) rosuvastatin 10 mg tablet 10 mg PO QPM 10/11/23 10/11/23 venlafaxine 75 mg tablet mg PO 10/11/23 10/11/23 Previous Rx's ?Medication ?Instructions ?Recorded naproxen 500 mg tablet 500 mg PO BID #30 tabs 01/31/22 Allergies Allergy/AdvReac Type Severity Reaction Status Date / Time amoxicillin Allergy Intermediate Verified 10/11/23 16:29 ampicillin Allergy Intermediate Verified 10/11/23 16:29 Review of Systems Status of ROS: Reports: 10 or more systems reviewed and unremarkable except as noted in History and below [facility] Medical History Detached retina ?H33.20 - Serous retinal detachment, unspecified eye (ICD-10) Anxiety ?F41.9 - Anxiety disorder, unspecified (ICD-10) Depression ?F32.A - Depression, unspecified (ICD-10) Arthritis ?M19.90 - Unspecified osteoarthritis, unspecified site (ICD-10) Neck pain ?M54.2 - Cervicalgia (ICD-10) Stroke ?I63.9 - Cerebral infarction, unspecified (ICD-10) Diabetes ?E11.9 - Type 2 diabetes mellitus without complications (ICD-10) Parkinsons ?G20 - Parkinson's disease (ICD-10) Surgical History H/O shoulder surgery (~2007) ?Z98.890 - Other specified postprocedural states (ICD-10) History of tonsillectomy ?Z90.89 - Acquired absence of other organs (ICD-10) History of appendectomy ?Z90.49 - Acquired absence of other specified parts of digestive tract (ICD-10) S/P cataract surgery ?Z98.49 - Cataract extraction status, unspecified eye (ICD-10) Family History Other Diabetes Skin cancer Stroke Social History Smoking Status: Never smoker Do you use any of these nicotine containing products: None Second hand tobacco smoke exposure: No How often do you have a drink containing alcohol: never How often do you have six or more drinks on one occasion: Never AUDIT-C Alcohol total score: 0 Non-prescribed substance use: denies use service: No Exam Narrative: Exam Narrative: EXAM GENERAL: Patient appears comfortable and well. EYES: No scleral icterus. ENT: Tympanic membranes and oropharynx normal. THYROID: no thyroid nodules or thyromegaly. LYMPH: No supraclavicular or cervical lymphadenopathy. SKIN: Visible skin seen during exam normal or with benign process only. EXT: Better select mobility right hip. HEART: Regular rate and rhythm with no murmurs, rubs, or gallops. LUNGS: Clear to auscultation bilaterally with no crackles or wheezes. ABD: Soft, non tender, non distended. PSYCH: Good eye contact, speech is not pressured. Neurologic cranial nerves 2-12 grossly intact no focal defects. Const: Vital Signs, click to edit/add: Vital Signs - 24 hr 11/30/23 23:58 Temperature 97.3 F L Pulse Rate [Femora l] 76 Respiratory Rate 16 Blood Pressure [Ri ght Upper Arm] 139/80 Pulse Oximetry 93 Oxygen Delivery Me thod Room Air Course Course ED Course: CT head neck pending. Chest x-ray EKG x-ray of the right hip CBC basic metabolic panel UA pending. Vital Signs Vital signs: Initial Vital Signs Temperature 97.3 F L 11/30/23 23:58 Temperature Source Temporal Artery Scan 11/30/23 23:58 Pulse Rate 76 11/30/23 23:58 Respiratory Rate 16 11/30/23 23:58 Blood Pressure 139/80 11/30/23 23:58 Blood Pressure Mean 99 11/30/23 23:58 Blood Pressure Position Supine 11/30/23 23:58 Pulse Oximetry 93 11/30/23 23:58 Oxygen Delivery Method Room Air 11/30/23 23:58 Vital Signs Temperature 97.3 F L 11/30/23 23:58 Pulse Rate 76 11/30/23 23:58 Respiratory Rate 16 11/30/23 23:58 Blood Pressure 139/80 11/30/23 23:58 Pulse Oximetry 93 11/30/23 23:58 Oxygen Delivery Method Room Air 11/30/23 23:58 Temperature 97.3 F L 11/30/23 23:58 Pulse Rate 76 11/30/23 23:58 Respiratory Rate 16 11/30/23 23:58 Blood Pressure 139/80 11/30/23 23:58 Pulse Oximetry 93 11/30/23 23:58 Oxygen Delivery Method Room Air 11/30/23 23:58 Medications Administered Medications: Discontinued Medications Generic Name Dose Route Start Last Admin Trade Name Freq PRN Reason Stop Dose Admin Hydromorphone HCl 0.5 mg 12/01/23 01:09 12/01/23 01:21 Hydromorphone 0.5 Mg/0.5 Ml Inj IVP 12/01/23 01:10 0.5 mg ONCE ONE Administration MDM - Fall MDM Narrative Medical decision making narrative: Patient is a 68-year-old gentleman who stumbled at home tonight striking his head on the wall and falling to the floor. His head neck CT ear unremarkable. GCS is normal. He unfortunately as the right proximal femur intratrochanteric fracture. Patient has comorbidities including diabetes and parkinsonism. At this point case was discussed with hospitalist and Orthopedics and will be admitted for surgical repair. Of note he is not on any anticoagulation. Lab Data Labs: Lab Results 12/01/23 Range/Units 01:00 WBC 14.81 H (4.50-11.00) K/uL RBC 5.34 (4.30-5.90) m/uL Hgb 15.8 (13.5-17.5) gm/dL Hct 47.5 (37.0-53.0) % MCV 89 (80-100) fL MCH 30 (26-34) pg MCHC 33 (32-36) gm/dL RDW Coeff of Christine 13.0 (11.5-15.5) % Plt Count 197 (140-440) K/uL Neut % (Auto) 78.8 H (42.0-72.0) % Lymph % (Auto) 12.0 L (20-44) % [place] % (Auto) 8.3 (0.0-11.0) % Eos % (Auto) 0.3 (0.0-7.0) % Baso % (Auto) 0.1 (0.0-3.0) % Neut # (Auto) 11.70 H (1.7-7.0) K/uL Lymph # (Auto) 1.80 (0.90-2.90) K/uL [place] # (Auto) 1.20 H (0.00-0.90) K/UL Eos # (Auto) 0.00 (0.00-0.50) K/uL Baso # (Auto) 0.00 (0.00-0.30) K/uL Abs Immat Gran (auto) 0.10 (0.00-0.30) K/uL Imm/Tot Granulo (auto) 0.5 % Discharge Plan Discharge Clinical Impression: Hip fracture Patient Disposition: Admitted As Inpatient Condition: Stable Activity Level: No Restrictions Discharge Diet: Regular Prescriptions: No Action acetaminophen-codeine 300-30 mg tablet 1 tab PO 3XD PRN Rytary 36.25-145 mg capsule, extended release 3 cap PO 3XD rosuvastatin 10 mg tablet 10 mg PO QPM venlafaxine 75 mg tablet PO pioglitazone 15 mg tablet Patient Comments: TAKE ONE TABLET BY MOUTH ONE TIME DAILY ropinirole 3 mg tablet Patient Comments: TAKE ONE TABLET BY MOUTH THREE TIMES DAILY entacapone 200 mg tablet Patient Comments: TAKE ONE TABLET BY MOUTH THREE TIMES DAILY trazodone 100 mg tablet Patient Comments: TAKE ONE OR TWO TABLETS BY MOUTH DAILY AT BEDTIME NEEDED FOR SLEEP metformin 1,000 mg tablet Patient Comments: TAKE ONE TABLET BY MOUTH TWICE A DAY WITH MEALS gabapentin 300 mg capsule Patient Comments: TAKE ONE CAPSULE BY MOUTH THREE TIMES DAILY Jardiance 25 mg tablet Patient Comments: TAKE ONE TABLET BY MOUTH ONE TIME DAILY naproxen 500 mg tablet 500 mg PO BID Qty: 30 2RF Follow Up/Referrals: Provider,Not a Local [Primary Care Provider] -
[2023-12-01] MEDS: HYDROmorphone 0.5 mg/0.5 ml inj IVP ×8 (01:21→21:20)
[2023-12-01 01:27] LABS: Basophils Percent Auto 0.1 % (0.0-3.0); Eosinophils Percent Auto 0.3 % (0.0-7.0); Hematocrit 47.5 % (37.0-53.0); Hemoglobin* 15.8 gm/dL (13.5-17.5); Immature Granulocytes Pct Auto 0.5 %; Mean Corpuscular HGB Conc 33 gm/dL (32-36); Mean Corpuscular Hemoglobin 30 pg (26-34); Mean Corpuscular Volume 89 fL (80-100); Monocytes Percent Auto 8.3 % (0.0-11.0); Neutrophils Percent Auto 78.8 % (42.0-72.0); Platelet Count* 197 K/uL (140-440); Red Blood Count 5.34 m/uL (4.30-5.90); White Blood Count* 14.81 K/uL (4.50-11.00)
[2023-12-01 01:35] LABS: Slide Review Reflex No
[2023-12-01 02:09] LABS: Chloride* 107 mmol/L (96-114); Sodium* 140 mmol/L (135-149)
[2023-12-01 02:10] LABS: Potassium* 3.9 mmol/L (3.6-5.1)
[2023-12-01 02:12] LABS: Creatinine* 0.7 mg/dL (0.5-1.5); Est. Creatinine Clearance* 75.03; Estimated Glomerular Filt Rate 102 ml/min
[2023-12-01 02:13] LABS: Anion Gap 10 mEq/L (7-15); Blood Urea Nitrogen* 13 mg/dL (7-30); Calcium* 8.7 mg/dL (8.4-10.6); Carbon Dioxide* 23 mmol/L (20-32); Glucose* 279 mg/dL (60-115)
[2023-12-01] MEDS: HYDROmorphone 0.5 mg/0.5 ml inj 1 MG IVP (02:17)
[2023-12-01] MEDS: lidocaine HCL 2 % JELLY (TOP) STERILE 6 ML UR (02:19)
[2023-12-01 02:42] LABS: Appearance Urine Cloudy (Clear); Bilirubin Urine Negative (Negative); Blood Urine Negative (Negative); Color Urine Yellow (Yellow); Glucose Urine 2+ (Negative); Ketones Urine Trace (Negative); Leukocyte Esterase Urine Negative (Negative); Nitrite Urine Negative (Negative); Protein Urine Negative (Negative); Specific Gravity Urine 1.015 (1.000-1.030); Urobilinogen Urine 0.2 (0.2-1.0); pH Urine 5.5 (5.0-8.5)
[2023-12-01 02:48] LABS: RBC Urine 0-2 (0-2); WBC Urine 0-2 (0-5)
[2023-12-01] MEDS: SODIUM CHLORIDE 0.9 % (FLUSH) 10 ML SYRINGE 5 ML IVF ×2 (04:09→19:35)
--- NOTE | 2023-12-01 04:24 | W.PM.THH&P_ITS ---
Telehealth- H&P: HPI History of Present Illness Date Seen: 12/01/23 Chief complaint: Fall Narrative: Cristobal Lai is seen as an Interactive Telehealth visit. Cristobal Lai is a 68 year old male who is Seen in his hospital room at [facility] with the assistance of nursing staff. He has been admitted through the emergency room. He tells me he was in his usual state of health working at his desk and computer he got up tripped on a cord and fell down. His phone was unfortunately in the kitchen. He had to crawl across the floor to get to his phone. Pardo he was able to get a hold of help. He was leaning against the chair on his knees to get up and he heard a rib crack he has been having a little bit of chest pain in that rib area since then. He denies fevers chills nausea vomiting chest pain or other symptoms. He did hit his head. He states he did not lose consciousness. Nothing else hurts at the moment. He tells me prior to this he is able to ambulate around [facility] without having any chest pain able to climb up a flight of stairs. He denies any heart or lung problems. He underwent a CT scan of his head which was negative, negative chest x-ray. he did have a right hip fracture. He is now being admitted for further evaluation and treatment. He does state his having significant amount of pain in his hip. Review of Systems Narrative: A complete review of systems was performed positive pertinent and negatives in the history of present illness. [facility] Medical History (Updated 12/01/23 @ 04:37 by Rio Guerrero DO) Detached retina ?H33.20 - Serous retinal detachment, unspecified eye (ICD-10) Anxiety ?F41.9 - Anxiety disorder, unspecified (ICD-10) Depression ?F32.A - Depression, unspecified (ICD-10) Arthritis ?M19.90 - Unspecified osteoarthritis, unspecified site (ICD-10) Neck pain ?M54.2 - Cervicalgia (ICD-10) Stroke ?I63.9 - Cerebral infarction, unspecified (ICD-10) Diabetes ?E11.9 - Type 2 diabetes mellitus without complications (ICD-10) Parkinsons ?G20 - Parkinson's disease (ICD-10) Surgical History H/O shoulder surgery (~2007) ?Z98.890 - Other specified postprocedural states (ICD-10) History of tonsillectomy ?Z90.89 - Acquired absence of other organs (ICD-10) History of appendectomy ?Z90.49 - Acquired absence of other specified parts of digestive tract (ICD- 10) S/P cataract surgery ?Z98.49 - Cataract extraction status, unspecified eye (ICD-10) Family History Other Diabetes Skin cancer Stroke Social History What is your current living situation?: I presently have a place to live Problems where you live: no known problems Problems where you live details: N/A In the past 12 months, utilities in danger of being shut off: no In past 12 months, lack of transportation kept you from medical appts, meetings, work, or getting things needed for daily living: no In the past 12 mos, have been you worried that your food would run out before you had money to buy more?: never true In the past 12 mos, the food you bought just didn't last and you didn't have money to buy more?: never true Highest level of school completed/degree received: Bachelor's degree Smoking Status: Never smoker Do you use any of these nicotine containing products: None Second hand tobacco smoke exposure: No How often do you have a drink containing alcohol: never How often do you have six or more drinks on one occasion: Never AUDIT-C Alcohol total score: 0 Non-prescribed substance use: denies use Caffeine: No How often does anyone, including family, friends and others, physically hurt you : never How often does anyone, including family, friends and others, insult or talk down to you: never How often does anyone, including family, friends and others, threaten you with harm: never How often does anyone, including family, friends and others, scream or curse at you: never service: No Meds Home Medications and Allergies Home Medications ?Medication ?Instructions ?Recorded ?Confirmed ?Type empagliflozin 25 mg tablet mg 01/31/22 10/11/23 History (Jardiance) entacapone 200 mg tablet mg 01/31/22 10/11/23 History gabapentin 300 mg capsule mg 01/31/22 10/11/23 History metformin 1,000 mg tablet mg 01/31/22 10/11/23 History pioglitazone 15 mg tablet mg 01/31/22 10/11/23 History ropinirole 3 mg tablet mg 01/31/22 10/11/23 History trazodone 100 mg tablet mg 01/31/22 10/11/23 History acetaminophen 300 mg-codeine 30 mg 1 tab PO 3XD PRN 10/11/23 10/11/23 History tablet carbidopa ER 36.25 mg-levodopa 145 3 cap PO 3XD 10/11/23 10/11/23 History mg capsule,extended release (Rytary) rosuvastatin 10 mg tablet 10 mg PO QPM 10/11/23 10/11/23 History venlafaxine 75 mg tablet mg PO 10/11/23 10/11/23 History Allergies Allergy/AdvReac Type Severity Reaction Status Date / Time amoxicillin Allergy Intermediate Verified 10/11/23 16:29 ampicillin Allergy Intermediate Verified 10/11/23 16:29 Exam Narrative Exam Narrative: Physical Exam GENERAL: ?vital signs reviewed, well developed and nourished, in no distress HEENT: pupils are equal round and reactive to light, extraocular movements are grossly within normal limits and oral mucosa is moist. NECK: Supple without lymphadenopathy or thyromegaly according to nursing staff examination observation HEART: Regular rate and rhythm without any rubs, murmurs, or gallops. LUNGS: Clear to auscultation bilaterally with good air movement throughout ABDOMEN: Observation from nurse assisted exam, abdomen appears soft, nontender, and nondistended with Positive bowel sounds noted. EXTREMITIES: Strength and sensation is observed to be grossly within normal l imits in the upper and lower extremities.? No focal strength deficit is observed. SKIN:? Observed warm and dry with color normal Const Vital Signs, click to edit/add: Vital Signs - 24 hr 11/30/23 23:58 12/01/23 00:01 12/01/23 00:02 Temperature 97.3 F L Pulse Rate 78 80 Pulse Rate [Femoral] 76 Pulse Rate [Right Pulse Oximeter] Respiratory Rate 16 16 Blood Pressure 135/71 Blood Pressure [Left Arm] Blood Pressure [Right Upper Arm] 139/80 Pulse Oximetry 93 94 94 Oxygen Delivery Method Room Air 12/01/23 00:02 12/01/23 00:02 12/01/23 01:04 Temperature Pulse Rate 80 80 83 Pulse Rate [Femoral] Pulse Rate [Right Pulse Oximeter] Respiratory Rate Blood Pressure 135/71 135/71 Blood Pressure [Left Arm] Blood Pressure [Right Upper Arm] Pulse Oximetry 94 94 93 Oxygen Delivery Method 12/01/23 01:05 12/01/23 01:15 12/01/23 01:30 Temperature Pulse Rate 82 75 80 Pulse Rate [Femoral] Pulse Rate [Right Pulse Oximeter] Respiratory Rate Blood Pressure Blood Pressure [Left Arm] Blood Pressure [Right Upper Arm] Pulse Oximetry 95 97 95 Oxygen Delivery Method 12/01/23 01:32 12/01/23 01:45 12/01/23 02:00 Temperature Pulse Rate 88 81 84 Pulse Rate [Femoral] Pulse Rate [Right Pulse Oximeter] Respiratory Rate 16 Blood Pressure 128/77 Blood Pressure [Left Arm] Blood Pressure [Right Upper Arm] Pulse Oximetry 94 95 95 Oxygen Delivery Method 12/01/23 02:02 12/01/23 02:15 12/01/23 02:30 Temperature Pulse Rate 86 96 97 Pulse Rate [Femoral] Pulse Rate [Right Pulse Oximeter] Respiratory Rate 18 Blood Pressure 128/66 Blood Pressure [Left Arm] Blood Pressure [Right Upper Arm] Pulse Oximetry 94 91 90 Oxygen Delivery Method 12/01/23 02:32 12/01/23 03:17 12/01/23 03:29 Temperature 99.7 F H Pulse Rate 94 Pulse Rate [Femoral] Pulse Rate [Right Pulse Oximeter] 96 Respiratory Rate 16 16 16 Blood Pressure 130/70 Blood Pressure [Left Arm] 125/66 Blood Pressure [Right Upper Arm] Pulse Oximetry 93 93 93 Oxygen Delivery Method Room Air Room Air his chest x-ray shows no acute findings per my interpretation Hip x-ray shows right hip fracture intertrochanteric Head CT was unremarkable for acute findings. Hospitalist - H&P: Result Labs Labs: Short CBC 12/01/23 Range/Units 01:00 WBC 14.81 H (4.50-11.00) K/uL Hgb 15.8 (13.5-17.5) gm/dL Hct 47.5 (37.0-53.0) % Plt Count 197 (140-440) K/uL BMP 12/01/23 01:00 Sodium 140 Potassium 3.9 Chloride 107 Carbon Dioxide 23 BUN 13 Creatinine 0.7 Glucose 279 H Calcium 8.7 Urine 12/01/23 Range/Units 02:22 Urine Color Yellow (Yellow) Urine Appearance Cloudy A (Clear) Urine pH 5.5 (5.0-8.5) Ur Specific [place] 1.015 (1.000-1.030) Urine Protein Negative (Negative) Urine Glucose (UA) 2+ A (Negative) Assessment and Plan Assessment and plan (1) Hip fracture: Status: Acute (2) Parkinsons: Status: Acute (3) Diabetes: Status: Acute (4) Anxiety: Status: Acute Plan Hip fracture?for now pain control IV hydromorphone, IV Toradol, will order oxycodone. N.p.o. Will await orthopedic consultation anticipate surgery today. Parkinson's?patient is very concerned about making sure he receives his Parkinson's medications. Unfortunately his home meds have not been completely reconciled. Were not exactly sure of his doses. Will need pharmacy to assist with this in the morning. He will need to arrange maintain staying on his Parkinson's medications so he does not develop stiffness etc. Diabetes?we will place him on sliding scale insulin. He is normally on metformin will hold this until he is back eating and drinking. Anxiety depression will need to order his home medications these will be clarified by pharmacy DVT prophylaxis per orthopedic surgery. CODE STATUS was discussed on admission he wishes to be a DNR/DNI. He is okay with this being reversed during surgery. Telehealth: Statement Statement Telehealth Visit: Today's History and Physical is provided via interactive telehealth by Rio Guerrero DO.? Patient is located at [facility].? Provider is located at ?.? Nursing staff assisted with the patient's exam. The visit being done today meets criteria for a telehealth visit and the patient or patient?s parent/guardian is aware the visit is a telehealth visit. Camera Start Time: 03:46 Camera End Time: 04:04
--- NOTE | 2023-12-01 04:31 | PC.NURSE ---
Shift note: Pt arrived at the unit at 0310 on stretcher accompanied his son. Pt was conscious, alert and oriented on arrival. He stated that, he tripped off computer cable and landed on the right hip. This caused severe pain to the right hip. Pt has a long standing hx of Parkinson and he has a noticeable shaking of both upper extremities. Pt rated pain level at 8/10. Ice pack applied, PRN Deluded and scheduled Ketorolac given and appeared effective. Maintain on bedrest and NPO for possible surgery this morning. Reviewed through [facility] by Dr Pate at 0405. Saline lock. Vitally stable.
[2023-12-01] MEDS: KETOROLAC 15 MG/ML inj IVP (04:42)
[2023-12-01] MEDS: LACTATED RINGERS 1000 ML 1,000 ML 500 ML IV (06:49)
[2023-12-01] MEDS: ONDANSETRON 2 MG/ML inj 4 MG IVP (08:57)
[2023-12-01] MEDS: LACTATED RINGERS 1000 ML 1,000 ML 125 ML IV ×2 (09:53→14:50)
--- NOTE | 2023-12-01 12:18 | P.ORCN_ITS ---
History of Present Illness HPI Date Seen: 12/01/23 Chief complaint: Fall Narrative: Venancio is a pleasant 68-year-old male who presented [place] ED today, 12/01/2023, after a fall from a standing height after tripping on a cord near his desk at home onto his right hip causing pain and difficulty with ambulation and motion. Upon his presentation to the ED, x-rays were obtained revealed a right intertrochanteric femur fracture. Orthopedics was consulted accordingly. He did hit his head. He states he did not lose consciousness. Nothing else hurts at the moment. He underwent a CT scan of his head which was negative, negative chest x-ray. History is notable for Parkinson's. [facility] Medical History Detached retina ?H33.20 - Serous retinal detachment, unspecified eye (ICD-10) Anxiety ?F41.9 - Anxiety disorder, unspecified (ICD-10) Depression ?F32.A - Depression, unspecified (ICD-10) Arthritis ?M19.90 - Unspecified osteoarthritis, unspecified site (ICD-10) Neck pain ?M54.2 - Cervicalgia (ICD-10) Stroke ?I63.9 - Cerebral infarction, unspecified (ICD-10) Diabetes ?E11.9 - Type 2 diabetes mellitus without complications (ICD-10) Parkinsons ?G20 - Parkinson's disease (ICD-10) Surgical History H/O shoulder surgery (~2007) ?Z98.890 - Other specified postprocedural states (ICD-10) History of tonsillectomy ?Z90.89 - Acquired absence of other organs (ICD-10) History of appendectomy ?Z90.49 - Acquired absence of other specified parts of digestive tract (ICD- 10) S/P cataract surgery ?Z98.49 - Cataract extraction status, unspecified eye (ICD-10) Family History Other Diabetes Skin cancer Stroke Social History What is your current living situation?: I presently have a place to live Problems where you live: no known problems Problems where you live details: N/A In the past 12 months, utilities in danger of being shut off: no In past 12 months, lack of transportation kept you from medical appts, meetings, work, or getting things needed for daily living: no In the past 12 mos, have been you worried that your food would run out before you had money to buy more?: never true In the past 12 mos, the food you bought just didn't last and you didn't have money to buy more?: never true Highest level of school completed/degree received: Bachelor's degree Smoking Status: Never smoker Do you use any of these nicotine containing products: None Second hand tobacco smoke exposure: No How often do you have a drink containing alcohol: never How often do you have six or more drinks on one occasion: Never AUDIT-C Alcohol total score: 0 Non-prescribed substance use: denies use Caffeine: No How often does anyone, including family, friends and others, physically hurt you : never How often does anyone, including family, friends and others, insult or talk down to you: never How often does anyone, including family, friends and others, threaten you with harm: never How often does anyone, including family, friends and others, scream or curse at you: never service: No Meds Home Medications and Allergies Home Medications ?Medication ?Instructions ?Recorded ?Confirmed ?Type empagliflozin 25 mg tablet 25 mg PO DAILY 01/31/22 12/01/23 History (Jardiance) entacapone 200 mg tablet 200 mg PO TID 01/31/22 12/01/23 History gabapentin 300 mg capsule 300 mg PO TID 01/31/22 12/01/23 History metformin 1,000 mg tablet 1,000 mg PO BIDWM 01/31/22 12/01/23 History ropinirole 3 mg tablet 3 mg PO TID PRN 01/31/22 12/01/23 History trazodone 100 mg tablet 200 mg PO HS 01/31/22 12/01/23 History acetaminophen 300 mg-codeine 30 mg 1 tab PO TID PRN 10/11/23 12/01/23 History tablet carbidopa ER 36.25 mg-levodopa 145 3 cap PO TID 10/11/23 12/01/23 History mg capsule,extended release (Rytary) rosuvastatin 10 mg tablet 10 mg PO HS 10/11/23 12/01/23 History venlafaxine 75 mg tablet 75 - 150 mg PO BID 10/11/23 12/01/23 History diazepam 5 mg tablet 5 mg PO DAILY PRN 12/01/23 12/01/23 History glimepiride 2 mg tablet 2 mg PO BID 12/01/23 12/01/23 History Allergies Allergy/AdvReac Type Severity Reaction Status Date / Time amoxicillin Allergy Intermediate Verified 10/11/23 16:29 ampicillin Allergy Intermediate Verified 10/11/23 16:29 Ortho Exam Narrative Exam Narrative: Alert and ordered x3. Resting in the hospital bed. Supine. Cooperative. Right hip exam shows no erythema, induration, or other cutaneous changes. No lacerations or abrasions. He does have hip pain with any attempted hip or knee range of motion. Neurologic intact in the superficial and deep peroneal as well as plantar distribution to sensory light touch and motor function. 2+ DP and PT pulse. Const Vital Signs, click to edit/add: Vital Signs - 24 hr 11/30/23 23:58 12/01/23 00:01 12/01/23 00:02 Temperature 97.3 F L Pulse Rate 78 80 Pulse Rate [Femoral] 76 Pulse Rate [Right Pulse Oximeter] Respiratory Rate 16 16 Blood Pressure 135/71 Blood Pressure [Left Arm] Blood Pressure [Right Upper Arm] 139/80 Pulse Oximetry 93 94 94 Oxygen Delivery Method Room Air 12/01/23 00:02 12/01/23 00:02 12/01/23 01:04 Temperature Pulse Rate 80 80 83 Pulse Rate [Femoral] Pulse Rate [Right Pulse Oximeter] Respiratory Rate Blood Pressure 135/71 135/71 Blood Pressure [Left Arm] Blood Pressure [Right Upper Arm] Pulse Oximetry 94 94 93 Oxygen Delivery Method 12/01/23 01:05 12/01/23 01:15 12/01/23 01:30 Temperature Pulse Rate 82 75 80 Pulse Rate [Femoral] Pulse Rate [Right Pulse Oximeter] Respiratory Rate Blood Pressure Blood Pressure [Left Arm] Blood Pressure [Right Upper Arm] Pulse Oximetry 95 97 95 Oxygen Delivery Method 12/01/23 01:32 12/01/23 01:45 12/01/23 02:00 Temperature Pulse Rate 88 81 84 Pulse Rate [Femoral] Pulse Rate [Right Pulse Oximeter] Respiratory Rate 16 Blood Pressure 128/77 Blood Pressure [Left Arm] Blood Pressure [Right Upper Arm] Pulse Oximetry 94 95 95 Oxygen Delivery Method 12/01/23 02:02 12/01/23 02:15 12/01/23 02:30 Temperature Pulse Rate 86 96 97 Pulse Rate [Femoral] Pulse Rate [Right Pulse Oximeter] Respiratory Rate 18 Blood Pressure 128/66 Blood Pressure [Left Arm] Blood Pressure [Right Upper Arm] Pulse Oximetry 94 91 90 Oxygen Delivery Method 12/01/23 02:32 12/01/23 03:17 12/01/23 03:29 Temperature 99.7 F H Pulse Rate 94 Pulse Rate [Femoral] Pulse Rate [Right Pulse Oximeter] 96 Respiratory Rate 16 16 16 Blood Pressure 130/70 Blood Pressure [Left Arm] 125/66 Blood Pressure [Right Upper Arm] Pulse Oximetry 93 93 93 Oxygen Delivery Method Room Air Room Air 12/01/23 09:12 12/01/23 10:51 Temperature 97.4 F L 97.8 F Pulse Rate Pulse Rate [Femoral] Pulse Rate [Right Pulse Oximeter] 93 92 Respiratory Rate 16 16 Blood Pressure Blood Pressure [Left Arm] 124/72 126/71 Blood Pressure [Right Upper Arm] Pulse Oximetry 91 90 Oxygen Delivery Method Room Air Room Air Results Labs Labs: Laboratory Results - last 48 hr 12/01/23 12/01/23 01:00 02:22 WBC 14.81 H RBC 5.34 Hgb 15.8 Hct 47.5 MCV 89 MCH 30 MCHC 33 RDW Coeff of Christine 13.0 Plt Count 197 Neut % (Auto) 78.8 H Lymph % (Auto) 12.0 L [place] % (Auto) 8.3 Eos % (Auto) 0.3 Baso % (Auto) 0.1 Neut # (Auto) 11.70 H Lymph # (Auto) 1.80 [place] # (Auto) 1.20 H Eos # (Auto) 0.00 Baso # (Auto) 0.00 Abs Immat Gran (auto) 0.10 Imm/Tot Granulo (auto) 0.5 Sodium 140 Potassium 3.9 Chloride 107 Carbon Dioxide 23 Anion Gap 10 BUN 13 Creatinine 0.7 Estimated Creat Clear 75.03 Estimated GFR 102 Glucose 279 H Calcium 8.7 Urine Color Yellow Urine Appearance Cloudy A Urine pH 5.5 Ur Specific [place] 1.015 Urine Protein Negative Urine Glucose (UA) 2+ A Urine Ketones Trace A Urine Blood Negative Urine Nitrite Negative Urine Bilirubin Negative Urine Urobilinogen 0.2 Ur Leukocyte Esterase Negative Urine RBC 0-2 Urine WBC 0-2 Ur Squamous Epith Cells None Urine Bacteria None Diagnostic results Additional Comments: AP pelvis, AP and cross-table lateral view right hip from [facility] dated 12/01/2023 were ordered by a different provider and reviewed by me. This demonstrates a right intertrochanteric/basicervical femoral neck fracture. Moderate varus angulation, significant external rotation, and slight shortening. Well-preserved hip joint space otherwise this is true bilaterally. Assessment and Plan Assessment and plan (1) Hip fracture: Status: Acute Total time spent: Total time spent is greater than 50% in coordination of care (as documented) at patient's floor/unit and/or counseling patient: (2) Parkinsons: Status: Acute Total time spent: Total time spent is greater than 50% in coordination of care (as documented) at patient's floor/unit and/or counseling patient: (3) Diabetes: Status: Acute Total time spent: Total time spent is greater than 50% in coordination of care (as documented) at patient's floor/unit and/or counseling patient: (4) Anxiety: Status: Acute Total time spent: Total time spent is greater than 50% in coordination of care (as documented) at patient's floor/unit and/or counseling patient: Plan I had a good discussion today with the patient. Help him understand his pathology. We talked through the various choices including both surgical and nonsurgical options. In my opinion, I do think surgery is indicated and the benefits outweigh the risks. We discussed the risks in more detail including the local risks of wound healing issues, infection, malunion/nonunion/hardware failure, as well as systemic risks such as TX, VTE, stroke, and delirium given the parkinsonism, etc.. I believe all questions were answered. Indeed he would like to proceed with surgery. Surgery to be for right femoral intramedullary nail placement. Postoperatively I would expect he would be able weightbear as tolerated and perform hip range of motion as tolerated. Given his parkinsonism, he may benefit from a stay at a skilled nurse facility/rehab facility. We will see how he progresses with physical therapy while here in the hospital I have been able to communicate with hospitalist team and coordinate care as well as with the anesthesia team.
[2023-12-01] MEDS: CEFAZOLIN 2 GM in 0.9 % SODIUM CHLORIDE Mini-bag 100 ML IVPB ×2 (13:58→21:19)
--- NOTE | 2023-12-01 14:07 | CRLHL7_ITS ---
For Patients: As a result of the Cures Act, medical imaging exams and procedure reports are released immediately into your electronic medical record. You may view this report before your referring provider. If you have questions, please contact your health care provider. Indication: RIGHT IM RODDING Technique: Two fluoroscopic images of the right proximal femur. Fluoroscopic time 42.6 seconds. IMPRESSION: Fluoroscopic guidance for open reduction internal fixation of right proximal femoral fracture. Dictated by Willian Meza MD @ 12/02/2023 7:53:28 AM (Electronically Signed)
--- NOTE | 2023-12-01 14:51 | P.ORPRC_ITS ---
Procedure Note Date of procedure: 12/01/23 Procedure: PREOPERATIVE DIAGNOSES: 1. Right femur intertrochanteric fracture, closed, acute POSTOPERATIVE DIAGNOSES: 1. Right femur intertrochanteric fracture, closed, acute NAME OF OPERATION: 1. Right femur intertrochanteric fracture fixation with intramedullary nail (short nail) just out of my surgery. Home at about 15 minutes. 2. 97670 - intraoperative fluoroscopy up to 1 hour. SURGEON: Malachi Dixon MD OPERATIONS MANAGER/COORDINATOR: Rigo David PA-C. Of note, an congressional assistant was critical for this case to aide in patient positioning, extremity positioning, tissue retraction, instrument manipulation, and closure. ANESTHESIA: Spinal IMPLANTS: Synthes short TFN 11 mm x 170 mm with 100 mm lag screw and 1 distal 5.0 mm interlocking screws EBL: 150 ml COMPLICATIONS: None evident INDICATIONS: The patient is a pleasant, 68-year-old male who unfortunately sustained a recent fall. They landed on their right hip and were unable to bear weight. They experienced significant pain which prompted a visit to [facility]. X-rays were obtained and revealed a proximal femur fracture consistent with a pertrochanteric (i.e. intertrochanteric / subtrochanteric) femur fracture. Given these findings, along with the desire to help with pain control and improved mobility / mobilization, surgery was recommended. FINDINGS: Basicervical / intertrochanteric left femur fracture with displacement, shortening, and varus angulation. PROCEDURE: Following a thorough discussion of risks, benefits, and alternatives, consent was obtained and the right hip was marked. After obtaining proper medical evaluation determining the patient was optimized prior to surgery, they were brought to the operating room and placed supine on the operating table. Induction of anesthesia undertaken. 2 g IV Ancef was administered within 1 hr of incision preoperatively. Proper time-out was performed identifying proper patient, site, and procedure. The operative extremity was prepped & draped in the appropriate sterile fashion using ChloraPrep after the patient was positioned on the [place] table with the head in neutral alignment all bone prominences well padded. C-arm fluoroscopic imaging was utilized to obtain AP and lateral views of the operative hip. This indeed confirm proper reduction of the proximal femur fracture. 10 blade skin incision was made proximal to the greater trochanteric tip. Sharp incision through skin and gluteal fascia allowed palpation of the greater trochanteric tip. A sharp awl was utilized and placed against the greater trochanteric tip. This was confirmed on C-arm and both in AP and lateral planes to be in appropriate starting position. Aiming down the canal. Once breaching the cortex, the ball- tip guidewire was passed the length of the femur. This was done even note with a short nail as the patient did have thick cortices that needed some reaming. Once confirming via palpable scrape and visual C-Arm imagining that the guide wire with intraosseous, the depth gauge was used. The proper nail length was selected. The opening / proximal reamer was used followed by diaphyseal reamers up to 12.5mm. The IMN was then opened and inserted and passed into the canal without difficulty. The triple trocar was then applied to the lateral femur, 10 blade incision through the skin and ITB band along the trocars allowed them to be advanced to the lateral cortex. This was confirmed fluoroscopically to be in appropriate position. The guide pin was then placed and confirmed on AP and lateral views with the goal of center center position. The length was measured as noted above and the reamer used followed by screw application. Reduction of the fracture was monitored during insertion. The proximal nail locking screw was tightened down. At this stage, C-arm confirmed proper screw/leg screw position. We then turned our attention to the distal interlocking screws on the jig. This was drilled, measured, and placed without difficulty. Again C-arm images were obtained to confirm position within the nail and the nail to be within the bone. At this stage, the wounds were thoroughly irrigated normal saline; closure was performed with #0 Vicryl for the deep gluteal fascia, and IT band. 2-0 Vicryl and 4-0 Monocryl was utilized for subcutaneous and subcuticular closure, respectively. The patient was awoken from anesthesia and transferred to the PACU in stable condition. PLAN: 1. Weight bear as tolerated left lower extremity. 2. Encouraged ice. 3. Oxycodone for pain as needed. 4. Anticipate the need for [facility] facility transfer once medically stabilized 5. 23 hr perioperative antibiotics. 6. Xarelto for DVT prophylaxis along with Wisam irishe and SCDs.
--- NOTE | 2023-12-01 15:43 | W.ANESCHARGE ---
Anesthesia Charges Start Date/Time Anesthesia Start Date: 12/01/23 Anesthesia Start Time: 13:43 Stop Date/Time Anesthesia Stop Date: 12/01/23 Anesthesia Stop Time: 15:30
--- NOTE | 2023-12-01 15:44 | P.NB_ITS ---
Nerve Block Nerve Block Time Seen by Provider: 15:33 Date Seen: 12/01/23 Type of block requested by surgeon for post-operative analgesia: USHA/LFCN Side: right Time out performed: Yes Verification of patient name: Yes Verification of date of : Yes Site marking: site marked Name of person performing procedure: cindy Continuous monitoring Was continuous monitoring of O2 sat, B/P, vehicle monitor technician, recorded every 15 minutes?: Yes Procedure Checklist: sterile prep and needles Ultrasound guided. Images saved: Yes Medications given in 5ml increments after negative aspiration: Ropivicaine %: 0.5 mL: 25 Needle gauge: 20 Decadron (mg): 10 Precedex (mcg): 25 Patient tolerated procedure well: Yes Block Charges Block Charge (with Pro Fee): Other Periph Nerve Block Use of Ultrasound Machine for Block: Yes- US Guidance/pain block
--- NOTE | 2023-12-01 16:42 | P.IMPN_ITS ---
Progress Note: A&P Assessment and plan (1) Closed left hip fracture: Problem details: Repaired by Dr. Dixon with intramedullary nail on November 30 without complications. Weight-bearing as tolerated Status: Acute (2) Parkinsons: Problem details: Likely to complicate his postoperative recovery. Monitor for hospital delirium and anticipate some increased difficulty with mobility. May need SNF. Resume home medications Status: Acute (3) Diabetes: Problem details: Resume home medications and monitor Status: Acute (4) Anxiety: Problem details: Manage with medications and reassurance Status: Acute Plan Continue in-hospital for rehabilitation following hip fracture surgery. Time Spent With Patient Total time spent: Total time spent today is 45 minutes, 30 minutes in evaluation and management and discussing with patient and family plan of disposition Subjective Date Seen: 12/01/23 Interval history: Admission HPI: Cristobal Lai is a 68 year old male with Parkinson's disease who is admitted through the emergency room. He tells me he was in his usual state of health working at his desk and computer he got up tripped on a cord and fell down. His phone was unfortunately in the kitchen. He had to crawl across the floor to get to his phone. Pardo he was able to get a hold of help. He was leaning against the chair on his knees to get up and he heard a rib crack he has been having a little bit of chest pain in that rib area since then. He denies fevers chills nausea vomiting chest pain or other symptoms. He did hit his head. He states he did not lose consciousness. Nothing else hurts at the moment. He tells me prior to this he is able to ambulate around [facility] without having any chest pain able to climb up a flight of stairs. He denies any heart or lung problems. He underwent a CT scan of his head which was negative, negative chest x-ray. he did have a right hip fracture. He is now being admitted for further evaluation and treatment. He does state his having significant amount of pain in his hip. November 30. Seen this morning prior to surgery: Patient reports being quite thirsty. Pain is under fair control. He is anxious to receive his Parkinson's medications. He reports no recent illness and no other injury other than his right hip fracture. He indicates he had some left rib pain last night but that seems to have resolved. Exam Narrative: Exam Narrative: He is alert and appears in no distress. Parkinsonian tremor noted. Oropharynx with dry mucous membranes. Respirations are clear to auscultation. Cardiovascular: S1, S2, regular rate and rhythm. Abdomen: Bowel sounds active. Abdomen is soft without tenderness or mass. He has no significant edema and intact pulses in all 4 extremities. Feet and ankles bilaterally with good motion and sensation. Const: Vital Signs, click to edit/add: Vital Signs - 24 hr 11/30/23 23:58 12/01/23 00:01 12/01/23 00:02 Temperature 97.3 F L Pulse Rate 78 80 Pulse Rate [Femora l] 76 Pulse Rate [Right Pulse Oximeter] Respiratory Rate 16 16 Blood Pressure 135/71 Blood Pressure [Le ft Arm] Blood Pressure [Ri ght Upper Arm] 139/80 Pulse Oximetry 93 94 94 Oxygen Delivery Me thod Room Air Oxygen Flow Rate 12/01/23 00:02 12/01/23 00:02 12/01/23 01:04 Temperature Pulse Rate 80 80 83 Pulse Rate [Femora l] Pulse Rate [Right Pulse Oximeter] Respiratory Rate Blood Pressure 135/71 135/71 Blood Pressure [Le ft Arm] Blood Pressure [Ri ght Upper Arm] Pulse Oximetry 94 94 93 Oxygen Delivery Me thod Oxygen Flow Rate 12/01/23 01:05 12/01/23 01:15 12/01/23 01:30 Temperature Pulse Rate 82 75 80 Pulse Rate [Femora l] Pulse Rate [Right Pulse Oximeter] Respiratory Rate Blood Pressure Blood Pressure [Le ft Arm] Blood Pressure [Ri ght Upper Arm] Pulse Oximetry 95 97 95 Oxygen Delivery Me thod Oxygen Flow Rate 12/01/23 01:32 12/01/23 01:45 12/01/23 02:00 Temperature Pulse Rate 88 81 84 Pulse Rate [Femora l] Pulse Rate [Right Pulse Oximeter] Respiratory Rate 16 Blood Pressure 128/77 Blood Pressure [Le ft Arm] Blood Pressure [Ri ght Upper Arm] Pulse Oximetry 94 95 95 Oxygen Delivery Me thod Oxygen Flow Rate 12/01/23 02:02 12/01/23 02:15 12/01/23 02:30 Temperature Pulse Rate 86 96 97 Pulse Rate [Femora l] Pulse Rate [Right Pulse Oximeter] Respiratory Rate 18 Blood Pressure 128/66 Blood Pressure [Le ft Arm] Blood Pressure [Ri ght Upper Arm] Pulse Oximetry 94 91 90 Oxygen Delivery Me thod Oxygen Flow Rate 12/01/23 02:32 12/01/23 03:17 12/01/23 03:29 Temperature 99.7 F H Pulse Rate 94 Pulse Rate [Femora l] Pulse Rate [Right Pulse Oximeter] 96 Respiratory Rate 16 16 16 Blood Pressure 130/70 Blood Pressure [Le ft Arm] 125/66 Blood Pressure [Ri ght Upper Arm] Pulse Oximetry 93 93 93 Oxygen Delivery Me thod Room Air Room Air Oxygen Flow Rate 12/01/23 09:12 12/01/23 10:51 12/01/23 15:25 Temperature 97.4 F L 97.8 F 99.2 F Pulse Rate 84 Pulse Rate [Femora l] Pulse Rate [Right Pulse Oximeter] 93 92 Respiratory Rate 16 16 12 Blood Pressure 109/61 Blood Pressure [Le ft Arm] 124/72 126/71 Blood Pressure [Ri ght Upper Arm] Pulse Oximetry 91 90 98 Oxygen Delivery Me thod Room Air Room Air OxyMask Oxygen Flow Rate 4 12/01/23 15:30 12/01/23 15:35 12/01/23 15:40 Temperature Pulse Rate 78 76 73 Pulse Rate [Femora l] Pulse Rate [Right Pulse Oximeter] Respiratory Rate 12 12 14 Blood Pressure 110/60 113/63 123/62 Blood Pressure [Le ft Arm] Blood Pressure [Ri ght Upper Arm] Pulse Oximetry 98 98 98 Oxygen Delivery Me thod OxyMask OxyMask OxyMask Oxygen Flow Rate 4 4 2 12/01/23 15:45 12/01/23 15:50 12/01/23 15:55 Temperature Pulse Rate 80 82 82 Pulse Rate [Femora l] Pulse Rate [Right Pulse Oximeter] Respiratory Rate 14 16 16 Blood Pressure 111/62 127/70 127/66 Blood Pressure [Le ft Arm] Blood Pressure [Ri ght Upper Arm] Pulse Oximetry 98 99 99 Oxygen Delivery Me thod Room Air Room Air Room Air Oxygen Flow Rate 12/01/23 16:19 Temperature 97 F L Pulse Rate 81 Pulse Rate [Femora l] Pulse Rate [Right Pulse Oximeter] Respiratory Rate 14 Blood Pressure 127/69 Blood Pressure [Le ft Arm] Blood Pressure [Ri ght Upper Arm] Pulse Oximetry 93 Oxygen Delivery Me thod Room Air Oxygen Flow Rate Documenting provider has reviewed patient's vital signs: yes Labs Labs: Laboratory Results - last 24 hr 12/01/23 12/01/23 01:00 02:22 WBC 14.81 H RBC 5.34 Hgb 15.8 Hct 47.5 MCV 89 MCH 30 MCHC 33 RDW Coeff of Christine 13.0 Plt Count 197 Neut % (Auto) 78.8 H Lymph % (Auto) 12.0 L [place] % (Auto) 8.3 Eos % (Auto) 0.3 Baso % (Auto) 0.1 Neut # (Auto) 11.70 H Lymph # (Auto) 1.80 [place] # (Auto) 1.20 H Eos # (Auto) 0.00 Baso # (Auto) 0.00 Abs Immat Gran (auto) 0.10 Imm/Tot Granulo (auto) 0.5 Sodium 140 Potassium 3.9 Chloride 107 Carbon Dioxide 23 Anion Gap 10 BUN 13 Creatinine 0.7 Estimated Creat Clear 75.03 Estimated GFR 102 Glucose 279 H Calcium 8.7 Urine Color Yellow Urine Appearance Cloudy A Urine pH 5.5 Ur Specific [place] 1.015 Urine Protein Negative Urine Glucose (UA) 2+ A Urine Ketones Trace A Urine Blood Negative Urine Nitrite Negative Urine Bilirubin Negative Urine Urobilinogen 0.2 Ur Leukocyte Esterase Negative Urine RBC 0-2 Urine WBC 0-2 Ur Squamous Epith Cells None Urine Bacteria None
[2023-12-01] MEDS: METFORMIN 1,000 MG TABLET 1000 MG PO (17:34)
[2023-12-01] MEDS: OXYCODONE 5 MG TABLET PO ×3 (17:38→22:18)
[2023-12-01] MEDS: ACETAMINOPHEN 325 MG TABLET PO (18:18)
[2023-12-01] MEDS: diazePAM 5 MG TABLET PO (18:18)
--- NOTE | 2023-12-01 18:33 | PC.NURSE ---
Shift Summary: Patient pleasant and cooperative. Increased anxiety following surgery related to pain and unable to move right leg, given PRN medication for pain and anxiety, see MAR. Vitals stable, needing 1L/NC to maintain o2 >90%, when on room air drops to 88%, using incentive spirometer. Tolerating regular diet well, drinking fluids, IV saline locked. Fuentes cath patent, patient not yet ambulating. Dressings over right hip C/D/I, ice pack over site. C/o pain in left ribs from fall, managed with ice pack. Daughter in room.
[2023-12-01] MEDS: ROPINIROLE HCL 1 MG TABLET 3 MG PO (20:09)
[2023-12-01] MEDS: GABAPENTIN 300 MG CAPSULE PO (20:10)
[2023-12-01] MEDS: ROSUVASTATIN CALCIUM 10 MG TABLET PO (20:10)
[2023-12-01] MEDS: GLIMEPIRIDE 1 MG TABLET 2 MG PO (20:10)
[2023-12-01] MEDS: SENNOSIDES 1 TAB TABLET 2 TAB PO (20:10)
[2023-12-01] MEDS: TRAZODONE HCL 50 MG TABLET 200 MG PO (21:19)
[2023-12-01] MEDS: IBUPROFEN 600 MG TABLET PO (21:19)
[2023-12-02 02:49] VITALS: BP 130/69; PULSE 75; RESP 18; TEMP 36.6; O2SAT 93
[2023-12-02] MEDS: OXYCODONE 5 MG TABLET PO ×3 (02:55→12:46)
--- NOTE | 2023-12-02 04:43 | PC.NURSE ---
Shift note: Pt has had tenzin sleep. Attempted to help ambulate in room at 0230 with A2, walker, and GB. This was patient's first time ambulated since surgery. Tolerated ambulation well but moved slow. Up in recliner at 0230 and transfer to bed at 0450 per pt's request. Pain level has been rate at 5 maximum. Dressing site appeared clean and dry. Pt tolerated regular diet well with abdominal symptoms. Alert and oriented and able to make needs known.
[2023-12-02] MEDS: CEFAZOLIN 2 GM in 0.9 % SODIUM CHLORIDE Mini-bag 100 ML IVPB ×2 (05:53→14:24)
[2023-12-02 06:45] LABS: Hematocrit 42.1 % (37.0-53.0); Hemoglobin* 14.2 gm/dL (13.5-17.5); Mean Corpuscular HGB Conc 34 gm/dL (32-36); Mean Corpuscular Hemoglobin 30 pg (26-34); Mean Corpuscular Volume 88 fL (80-100); Platelet Count* 171 K/uL (140-440); White Blood Count* 10.24 K/uL (4.50-11.00)
[2023-12-02 07:00] VITALS: BP 139/74; PULSE 77; RESP 18; TEMP 36.4; O2SAT 96
[2023-12-02 07:11] LABS: Slide Review Reflex No
[2023-12-02] MEDS: ONDANSETRON 2 MG/ML inj 4 MG IVP ×3 (07:12→16:20)
[2023-12-02 07:50] LABS: Chloride* 106 mmol/L (96-114); Potassium* 4.3 mmol/L (3.6-5.1); Sodium* 137 mmol/L (135-149)
[2023-12-02 07:53] LABS: Anion Gap 10 mEq/L (7-15); Blood Urea Nitrogen* 14 mg/dL (7-30); Calcium* 8.6 mg/dL (8.4-10.6); Carbon Dioxide* 21 mmol/L (20-32); Creatinine* 0.5 mg/dL (0.5-1.5); Est. Creatinine Clearance* 75.03; Estimated Glomerular Filt Rate 112 ml/min; Glucose* 242 mg/dL (60-115)
[2023-12-02] MEDS: CELECOXIB 200 MG CAPSULE PO (08:18)
[2023-12-02] MEDS: GLIMEPIRIDE 1 MG TABLET 2 MG PO ×2 (08:19→21:13)
[2023-12-02] MEDS: GABAPENTIN 300 MG CAPSULE PO ×3 (08:19→21:13)
[2023-12-02] MEDS: METFORMIN 1,000 MG TABLET 1000 MG PO ×2 (08:19→17:34)
[2023-12-02] MEDS: EMPAGLIFLOZIN 10 MG TABLET 25 MG PO (08:20)
[2023-12-02] MEDS: RIVAROXABAN 10 MG TABLET PO (08:20)
[2023-12-02] MEDS: ACETAMINOPHEN 325 MG TABLET PO ×2 (08:20→17:35)
[2023-12-02] MEDS: SENNOSIDES 1 TAB TABLET 2 TAB PO ×2 (08:20→21:14)
[2023-12-02] MEDS: Entacapone 200 mg tablet PO ×3 (08:22→21:11)
[2023-12-02] MEDS: SODIUM CHLORIDE 0.9 % (FLUSH) 10 ML SYRINGE 5 ML IVF ×2 (08:23→21:11)
[2023-12-02 11:00] VITALS: BP 128/62; PULSE 76; RESP 18; TEMP 36.2; O2SAT 94
[2023-12-02] MEDS: VENLAFAXINE HCL 37.5 MG TABLET 150 MG PO (11:26)
--- NOTE | 2023-12-02 12:26 | PM.ORPN ---
Subjective Subjective Date Seen: 12/02/23 Principal diagnosis: POD 1 right femur intertrochanteric fracture fixation with IM nail Interval history: Patient reports doing okay. Has been doing with nausea since early this morning. Zofran has helped. Now having hiccups. Requesting medication for both of these symptoms. Little to no appetite. Poor oral intake this morning. No acute events over night. Pain managed with scheduled and PRN medications, ice. Pain mostly present with right leg motion. DVT prophylaxis: Rivaroxaban, SCDs, walking. Denies fevers, chills, aches, CP, SOB/IBRAHIM, or lightheadedness. Diagnosed with Parkinson's approximately 26 years ago. Tremors impact his right upper and right lower extremity. Lives in [facility]. All 1 level. He is interested in SNF for rehab. Ortho Exam Narrative Exam Narrative: -Patient appears comfortable in bed; was sleeping. No apparent acute distress. As our conversation progressed, hiccups return, and nausea return. No active emesis. Using emesis bag for spitting. -Alert and oriented times 3 -Operative hip mildly swollen; soft tissues supple; no obvious erythema. No ecchymosis noted. Warmth appropriate -Surgical dressings clean, dry, intact; no obvious drainage, no erythematous streaking peripheral to the bandage -Bilateral calves soft and supple; no swelling, edema, tenderness, erythema, discoloration, warmth, or palpable cords -2+ DP/PT pulses, intact dermatomes and myotomes distally (5/5 strength). -mild resting tremor right upper extremity Const Vital Signs, click to edit/add: Vital Signs - 24 hr 12/01/23 15:25 12/01/23 15:30 12/01/23 15:35 Temperature 99.2 F Pulse Rate 84 78 76 Pulse Rate [Right Pulse Oximeter] Respiratory Rate 12 12 12 Blood Pressure 109/61 110/60 113/63 Blood Pressure [Left Arm] Pulse Oximetry 98 98 98 Oxygen Delivery Method OxyMask OxyMask OxyMask Oxygen Flow Rate 4 4 4 12/01/23 15:40 12/01/23 15:45 12/01/23 15:50 Temperature Pulse Rate 73 80 82 Pulse Rate [Right Pulse Oximeter] Respiratory Rate 14 14 16 Blood Pressure 123/62 111/62 127/70 Blood Pressure [Left Arm] Pulse Oximetry 98 98 99 Oxygen Delivery Method OxyMask Room Air Room Air Oxygen Flow Rate 2 12/01/23 15:55 12/01/23 16:19 12/01/23 16:30 Temperature 97 F L 97 F L Pulse Rate 82 81 81 Pulse Rate [Right Pulse Oximeter] Respiratory Rate 16 14 16 Blood Pressure 127/66 127/69 131/69 Blood Pressure [Left Arm] Pulse Oximetry 99 93 90 Oxygen Delivery Method Room Air Room Air Room Air Oxygen Flow Rate 1 12/01/23 16:45 12/01/23 17:00 12/01/23 17:15 Temperature 97 F L 97 F L 97.5 F L Pulse Rate 80 84 88 Pulse Rate [Right Pulse Oximeter] Respiratory Rate 16 16 16 Blood Pressure 127/70 137/70 125/87 Blood Pressure [Left Arm] Pulse Oximetry 94 94 91 Oxygen Delivery Method Room Air Nasal Cannula Nasal Cannula Oxygen Flow Rate 1 1 1 12/01/23 17:45 12/01/23 18:15 12/01/23 19:00 Temperature 97.5 F L 97.5 F L 97.5 F L Pulse Rate 96 96 88 Pulse Rate [Right Pulse Oximeter] Respiratory Rate 18 18 18 Blood Pressure 115/77 128/81 129/78 Blood Pressure [Left Arm] Pulse Oximetry 92 91 93 Oxygen Delivery Method Nasal Cannula Nasal Cannula Nasal Cannula Oxygen Flow Rate 1 1 1 12/01/23 20:00 12/01/23 21:00 12/01/23 22:00 Temperature 97.4 F L 97.7 F 97.5 F L Pulse Rate 95 82 79 Pulse Rate [Right Pulse Oximeter] Respiratory Rate 16 18 16 Blood Pressure 140/74 H 127/66 120/62 Blood Pressure [Left Arm] Pulse Oximetry 93 94 92 Oxygen Delivery Method Nasal Cannula Nasal Cannula Nasal Cannula Oxygen Flow Rate 1 1 12/01/23 22:54 12/01/23 23:00 12/01/23 23:00 Temperature 97.5 F L Pulse Rate Pulse Rate [Right Pulse Oximeter] 79 79 Respiratory Rate 18 18 18 Blood Pressure Blood Pressure [Left Arm] 120/62 Pulse Oximetry 93 93 Oxygen Delivery Method Nasal Cannula Nasal Cannula Oxygen Flow Rate 1 1 12/02/23 02:49 12/02/23 07:00 12/02/23 07:00 Temperature 98 F 97.5 F L Pulse Rate Pulse Rate [Right Pulse Oximeter] 75 77 Respiratory Rate 18 18 Blood Pressure Blood Pressure [Left Arm] 130/69 139/74 Pulse Oximetry 93 96 96 Oxygen Delivery Method Room Air Room Air Room Air Oxygen Flow Rate 12/02/23 07:00 12/02/23 11:00 Temperature 97.1 F L Pulse Rate Pulse Rate [Right Pulse Oximeter] 77 76 Respiratory Rate 18 18 Blood Pressure Blood Pressure [Left Arm] 128/62 Pulse Oximetry 94 Oxygen Delivery Method Room Air Oxygen Flow Rate Assessment and Plan Assessment and plan (1) Closed left hip fracture: Problem details: Repaired by Dr. Dixon with intramedullary nail on November 30 without complications. Weight-bearing as tolerated Status: Acute (2) Parkinsons: Problem details: Likely to complicate his postoperative recovery. Monitor for hospital delirium and anticipate some increased difficulty with mobility. May need SNF. Resume home medications Status: Acute (3) Diabetes: Problem details: Resume home medications and monitor Status: Acute (4) Anxiety: Problem details: Manage with medications and reassurance Status: Acute (5) Postoperative nausea: Problem details: Managed with Zofran Status: Acute Plan - Complete 23 hour perioperative antibiotics. - PT/OT consult for education and assistance. - Social work consult for discharge planning - Prescribed analgesics as needed - DVT prophylaxis: Rivaroxaban, SCDs, and walking - Anticipation is for discharge to SNF once facility is located, and patient remains medically stable, pain is controlled, and they are recently safe with mobilization. - when with patient, repositioned him in bed so he was sitting more upright. Cool washcloth applied to his forehead while he was feeling nauseous. Nurse came in after me to administer IV Zofran and medication for his hiccups.
[2023-12-02] MEDS: METOCLOPRAMIDE 10 MG TABLET PO (12:46)
[2023-12-02 15:00] VITALS: BP 128/63; PULSE 74; RESP 18; TEMP 36.2; O2SAT 91
--- NOTE | 2023-12-02 15:06 | P.IMPN_ITS ---
Progress Note: A&P Assessment and plan (1) Closed left hip fracture: Problem details: Repaired by Dr. Dixon with intramedullary nail on November 30 without complications. Weight-bearing as tolerated Status: Acute (2) Parkinsons: Problem details: Likely to complicate his postoperative recovery. Doing fairly well postoperatively. May need SNF. Resume home medications Status: Acute (3) Diabetes: Problem details: Resume home medications and monitor Status: Acute (4) Anxiety: Problem details: Manage with medications and reassurance Status: Acute (5) Postoperative nausea: Problem details: Managed with Zofran Status: Acute (6) Hiccups: Problem details: Relatively intractable hiccups starting this morning the day after surgery. Trial Reglan, gabapentin and other non medication maneuvers. Consider Compazine as alternative as well. Status: Acute Plan Continue in hospital for postoperative cares, management of pain, therapy, hiccups. Time Spent With Patient Total time spent: Total time spent today is 40 minutes, 30 minutes in coordination of care discussing with patient, daughter and other providers management of hiccups pain, pain medications and therapy. Subjective Date Seen: 12/02/23 Interval history: Patient reports doing okay. Has been doing with nausea since early this morning. Zofran has helped. Now having hiccups. Requesting medication for both of these symptoms. Little to no appetite. Poor oral intake this morning. No acute events over night. Pain managed with scheduled and PRN medications, ice. Pain mostly present with right leg motion. DVT prophylaxis: Rivaroxaban, SCDs, walking. Denies fevers, chills, aches, CP, SOB/IBRAHIM, or lightheadedness. Diagnosed with Parkinson's approximately 26 years ago. Tremors impact his right upper and right lower extremity. Lives in [facility]. All 1 level. He is interested in SNF for rehab. December 01: Postop day 1. Had quite a bit of pain last evening but better today. Cautious about opioid due to remote history of opioid use disorder. Notably he does take Tylenol No. 3 at home chronically. Today is pain is better. Pain is tolerable without medication at rest but still requiring pain medications with ambulation. He feels like his mobility is improving. His biggest concern today is intractable hiccups that started this morning. Not had a previous problem with this. Medications so far of not obviously helped. Other non medication treatments have been tried without success. Exam Narrative: Exam Narrative: He is alert and appears in no distress. Recurrent and relatively frequent hiccups noted. Respirations are clear to auscultation. Cardiovascular: S1, S2, regular rate and rhythm. No murmur gallop or rub. Abdomen is soft without tenderness or mass. Hip is examined. Bandages over his right hip show no significant drainage and surrounding this are no significant edema or redness. Distally he has intact pulses and sensation and no significant edema. Const: Vital Signs, click to edit/add: Vital Signs - 24 hr 12/01/23 15:25 12/01/23 15:30 12/01/23 15:35 Temperature 99.2 F Pulse Rate 84 78 76 Pulse Rate [Right Pulse Oximeter] Respiratory Rate 12 12 12 Blood Pressure 109/61 110/60 113/63 Blood Pressure [Le ft Arm] Pulse Oximetry 98 98 98 Oxygen Delivery Me thod OxyMask OxyMask OxyMask Oxygen Flow Rate 4 4 4 12/01/23 15:40 12/01/23 15:45 12/01/23 15:50 Temperature Pulse Rate 73 80 82 Pulse Rate [Right Pulse Oximeter] Respiratory Rate 14 14 16 Blood Pressure 123/62 111/62 127/70 Blood Pressure [Le ft Arm] Pulse Oximetry 98 98 99 Oxygen Delivery Me thod OxyMask Room Air Room Air Oxygen Flow Rate 2 12/01/23 15:55 12/01/23 16:19 12/01/23 16:30 Temperature 97 F L 97 F L Pulse Rate 82 81 81 Pulse Rate [Right Pulse Oximeter] Respiratory Rate 16 14 16 Blood Pressure 127/66 127/69 131/69 Blood Pressure [Le ft Arm] Pulse Oximetry 99 93 90 Oxygen Delivery Me thod Room Air Room Air Room Air Oxygen Flow Rate 1 12/01/23 16:45 12/01/23 17:00 12/01/23 17:15 Temperature 97 F L 97 F L 97.5 F L Pulse Rate 80 84 88 Pulse Rate [Right Pulse Oximeter] Respiratory Rate 16 16 16 Blood Pressure 127/70 137/70 125/87 Blood Pressure [Le ft Arm] Pulse Oximetry 94 94 91 Oxygen Delivery Me thod Room Air Nasal Cannula Nasal Cannula Oxygen Flow Rate 1 1 1 12/01/23 17:45 12/01/23 18:15 12/01/23 19:00 Temperature 97.5 F L 97.5 F L 97.5 F L Pulse Rate 96 96 88 Pulse Rate [Right Pulse Oximeter] Respiratory Rate 18 18 18 Blood Pressure 115/77 128/81 129/78 Blood Pressure [Le ft Arm] Pulse Oximetry 92 91 93 Oxygen Delivery Me thod Nasal Cannula Nasal Cannula Nasal Cannula Oxygen Flow Rate 1 1 1 12/01/23 20:00 12/01/23 21:00 12/01/23 22:00 Temperature 97.4 F L 97.7 F 97.5 F L Pulse Rate 95 82 79 Pulse Rate [Right Pulse Oximeter] Respiratory Rate 16 18 16 Blood Pressure 140/74 H 127/66 120/62 Blood Pressure [Le ft Arm] Pulse Oximetry 93 94 92 Oxygen Delivery Me thod Nasal Cannula Nasal Cannula Nasal Cannula Oxygen Flow Rate 1 1 12/01/23 22:54 12/01/23 23:00 12/01/23 23:00 Temperature 97.5 F L Pulse Rate Pulse Rate [Right Pulse Oximeter] 79 79 Respiratory Rate 18 18 18 Blood Pressure Blood Pressure [Le ft Arm] 120/62 Pulse Oximetry 93 93 Oxygen Delivery Me thod Nasal Cannula Nasal Cannula Oxygen Flow Rate 1 1 12/02/23 02:49 12/02/23 07:00 12/02/23 07:00 Temperature 98 F 97.5 F L Pulse Rate Pulse Rate [Right Pulse Oximeter] 75 77 Respiratory Rate 18 18 Blood Pressure Blood Pressure [Le ft Arm] 130/69 139/74 Pulse Oximetry 93 96 96 Oxygen Delivery Me thod Room Air Room Air Room Air Oxygen Flow Rate 12/02/23 07:00 12/02/23 11:00 Temperature 97.1 F L Pulse Rate Pulse Rate [Right Pulse Oximeter] 77 76 Respiratory Rate 18 18 Blood Pressure Blood Pressure [Le ft Arm] 128/62 Pulse Oximetry 94 Oxygen Delivery Me thod Room Air Oxygen Flow Rate Documenting provider has reviewed patient's vital signs: yes Labs Labs: Laboratory Results - last 24 hr 12/02/23 12/02/23 06:20 07:42 WBC 10.24 RBC 4.80 Hgb 14.2 Hct 42.1 MCV 88 MCH 30 MCHC 34 Plt Count 171 Sodium 137 Potassium 4.3 Chloride 106 Carbon Dioxide 21 Anion Gap 10 BUN 14 Creatinine 0.5 Estimated Creat Clear 75.03 Estimated GFR 112 Glucose 242 H Calcium 8.6 Lab Acknowledgement Test Added
--- NOTE | 2023-12-02 18:31 | PC.NURSE ---
End of shift-- Very pleasant and cooperative, alert and oriented patient. VSS and pt is afebrile. SPO2 maintained >90% on RA. Pain appears well managed with Tylenol and Oxycodone as needed. Pt c/o hiccups continuously today from the beginning of the shift until midafternoon. He was given drinks, sugar, peanut butter, alec and Reglan without relief. This afternoon pt had 1x 100ml emesis and hiccups resolved following. He was given Zofran 2x today with stated temporary relief from nausea. He ate 25-50% of a regular diet. Dressing to right hip is C/D/I. CMS WNL. LS CTA. He was up to the chair and BR with assist of 1, belt and a walker and tolerated it well. Son and daughter were at bedside today and appear loving and supportive.
[2023-12-02 19:00] VITALS: BP 122/78; PULSE 79; RESP 18; TEMP 36.4; O2SAT 93
[2023-12-02] MEDS: ROSUVASTATIN CALCIUM 10 MG TABLET PO (21:13)
[2023-12-02] MEDS: VENLAFAXINE HCL 37.5 MG TABLET 75 MG PO (21:16)
[2023-12-02 23:00] VITALS: BP 127/68; PULSE 83; RESP 18; TEMP 36.6; O2SAT 90
[2023-12-03 02:37] VITALS: BP 121/74; PULSE 85; RESP 18; TEMP 37; O2SAT 91
--- NOTE | 2023-12-03 06:24 | PC.NURSE ---
Shift note: Pt alert and oriented, doing well ambulating with A1, walker and GB. Had a reduced pain level this shift. No PRN pain medication requested. Dressing clean, dry and intact. Pt tolerated regular diet well. No hiccup, N/V, or fever recorded. Vitally stable.
[2023-12-03 06:26] LABS: Basophils Absolute Auto 0.03 K/uL (0.00-0.30); Basophils Percent Auto 0.3 % (0.0-3.0); Eosinophils Absolute Auto 0.05 K/uL (0.00-0.50); Eosinophils Percent Auto 0.5 % (0.0-7.0); Hematocrit 39.9 % (37.0-53.0); Hemoglobin* 13.3 gm/dL (13.5-17.5); Immature Granulocytes Abs Auto 0.03 K/uL (0.00-0.30); Immature Granulocytes Pct Auto 0.3 %; Lymphocytes Absolute Auto 2.32 K/uL (0.90-2.90); Lymphocytes Percent Auto 23.8 % (20-44); Mean Corpuscular HGB Conc 33 gm/dL (32-36); Mean Corpuscular Hemoglobin 29 pg (26-34); Mean Corpuscular Volume 88 fL (80-100); Monocytes Percent Auto 11.5 % (0.0-11.0); Neutrophils Absolute Auto 6.18 K/uL (1.7-7.0); Neutrophils Percent Auto 63.6 % (42.0-72.0); Platelet Count* 149 K/uL (140-440); RDW Coefficient of Variation % 13.6 % (11.5-15.5); Red Blood Count 4.53 m/uL (4.30-5.90); White Blood Count* 9.73 K/uL (4.50-11.00)
[2023-12-03 06:29] LABS: Slide Review Reflex No
--- NOTE | 2023-12-03 07:38 | PM.ORPN ---
Subjective Subjective Date Seen: 12/03/23 Principal diagnosis: POD 2 right femur intertrochanteric fracture fixation with IM nail Interval history: Patient reports doing well. Feeling much better this morning. 1 episode of emesis yesterday which also resolved his hiccups. Able to eat breakfast this morning. No acute events over night. Pain is [id number], hip feels stiff. Pain managed with scheduled and PRN medications, ice. Patient not requiring narcotics. DVT prophylaxis: Rivaroxaban, SCDs, walking. Denies fevers, chills, aches, N/V, CP, SOB/IBRAHIM, or lightheadedness. Passing flatus. Ortho Exam Narrative Exam Narrative: -Patient appears comfortable in bed; no apparent acute distress -Alert and oriented times 3 -Operative hip mildly swollen; soft tissues supple; no obvious erythema. No significant ecchymosis. Warmth appropriate -Surgical dressings clean, dry, intact; no obvious drainage, no erythematous streaking peripheral to the bandage -Bilateral calves soft and supple; no significant swelling, edema, tenderness, erythema, discoloration, warmth, or palpable cords -2+ DP/PT pulses, intact dermatomes and myotomes distally (5/5 strength). Const Vital Signs, click to edit/add: Vital Signs - 24 hr 12/02/23 11:00 12/02/23 15:00 12/02/23 15:00 Temperature 97.1 F L 97.2 F L Pulse Rate [Right Pulse Oximeter] 76 74 Respiratory Rate 18 18 18 Blood Pressure [Left Arm] 128/62 128/63 Pulse Oximetry 94 91 91 Oxygen Delivery Method Room Air Room Air Room Air 12/02/23 15:00 12/02/23 19:00 12/02/23 23:00 Temperature 97.5 F L Pulse Rate [Right Pulse Oximeter] 74 79 83 Respiratory Rate 18 18 18 Blood Pressure [Left Arm] 122/78 Pulse Oximetry 93 Oxygen Delivery Method Room Air 12/02/23 23:00 12/02/23 23:00 12/03/23 02:37 Temperature 97.9 F 98.6 F Pulse Rate [Right Pulse Oximeter] 83 85 Respiratory Rate 18 18 18 Blood Pressure [Left Arm] 127/68 121/74 Pulse Oximetry 90 90 91 Oxygen Delivery Method Room Air Room Air Room Air Assessment and Plan Assessment and plan (1) Closed left hip fracture: Problem details: Postop day 2: Repaired by Dr. Dixon with intramedullary nail on November 30 without complications. Weight-bearing as tolerated Status: Acute (2) Parkinsons: Problem details: Likely to complicate his postoperative recovery. Doing fairly well postoperatively. May need SNF. Resume home medications Status: Acute (3) Diabetes: Problem details: Resume home medications and monitor Status: Acute (4) Anxiety: Problem details: Manage with medications and reassurance Status: Acute (5) Postoperative nausea: Problem details: Managed with Zofran - appears resolved Status: Acute (6) Hiccups: Problem details: Relatively intractable hiccups starting this morning the day after surgery. Trial Reglan, gabapentin and other non medication maneuvers. Consider Compazine as alternative as well. Status: Acute Plan - Complete 23 hour perioperative antibiotics. - PT/OT consult for education and assistance. - Social work consult for discharge planning - SNF to be determined - Prescribed analgesics as needed - limit oral narcotics per patient request - DVT prophylaxis: Rivaroxaban, ambulation, and SCDs - Anticipation is for discharge to SNF once bed available and if the patient remains medically stable, pain is controlled, and they are reasonably safe with mobilization.
[2023-12-03] MEDS: OXYCODONE 5 MG TABLET PO ×4 (08:02→20:38)
[2023-12-03 08:14] VITALS: BP 125/70; PULSE 77; RESP 18; TEMP 36.2; O2SAT 93
[2023-12-03] MEDS: Entacapone 200 mg tablet PO ×3 (08:32→20:35)
[2023-12-03] MEDS: GABAPENTIN 300 MG CAPSULE PO ×3 (08:33→20:38)
[2023-12-03] MEDS: RIVAROXABAN 10 MG TABLET PO (08:33)
[2023-12-03] MEDS: CELECOXIB 200 MG CAPSULE PO (08:33)
[2023-12-03] MEDS: SENNOSIDES 1 TAB TABLET 2 TAB PO ×2 (08:34→20:36)
[2023-12-03] MEDS: GLIMEPIRIDE 1 MG TABLET 2 MG PO (08:35)
[2023-12-03] MEDS: METFORMIN 1,000 MG TABLET 1000 MG PO ×2 (08:35→17:58)
[2023-12-03] MEDS: VENLAFAXINE HCL 37.5 MG TABLET 150 MG PO (08:35)
[2023-12-03] MEDS: EMPAGLIFLOZIN 10 MG TABLET 25 MG PO (08:37)
[2023-12-03] MEDS: SODIUM CHLORIDE 0.9 % (FLUSH) 10 ML SYRINGE 5 ML IVF ×3 (08:37→20:40)
[2023-12-03] MEDS: ONDANSETRON 2 MG/ML inj 4 MG IVP (08:58)
--- NOTE | 2023-12-03 09:11 | PM.IMPN1 ---
Progress Note: A&P Assessment and plan (1) Closed left hip fracture: Problem details: Postop day 2: Repaired by Dr. Dixon with intramedullary nail on November 30 without complications. Weight-bearing as tolerated Status: Acute (2) Parkinsons: Problem details: Likely to complicate his postoperative recovery. Doing fairly well postoperatively. May need SNF. Resume home medications Status: Acute (3) Diabetes: Problem details: Resume home medications and monitor. Blood sugar control improving Status: Acute (4) Anxiety: Problem details: Manage with medications and reassurance Status: Acute (5) Postoperative nausea: Problem details: Managed with Zofran - appears resolved Status: Acute (6) Hiccups: Problem details: Relatively intractable hiccups starting this morning the day after surgery. Did not respond to medication management. Did have a emesis yesterday, December 01, and since then has had no further hiccups Status: Acute Plan Continue pain management, therapy, look for disposition at long term facility. Time Spent With Patient Total time spent: Total time spent today is 35 minutes, 20 minutes in coordination of care discussing with patient other providers ongoing evaluation management and disposition Subjective Date Seen: 12/03/23 Interval history: Patient reports doing okay. Has been doing with nausea since early this morning. Zofran has helped. Now having hiccups. Requesting medication for both of these symptoms. Little to no appetite. Poor oral intake this morning. No acute events over night. Pain managed with scheduled and PRN medications, ice. Pain mostly present with right leg motion. DVT prophylaxis: Rivaroxaban, SCDs, walking. Denies fevers, chills, aches, CP, SOB/IBRAHIM, or lightheadedness. Diagnosed with Parkinson's approximately 26 years ago. Tremors impact his right upper and right lower extremity. Lives in [facility]. All 1 level. He is interested in SNF for rehab. December 01: Postop day 1. Had quite a bit of pain last evening but better today. Cautious about opioid due to remote history of opioid use disorder. Notably he does take Tylenol No. 3 at home chronically. Today is pain is better. Pain is tolerable without medication at rest but still requiring pain medications with ambulation. He feels like his mobility is improving. His biggest concern today is intractable hiccups that started this morning. Not had a previous problem with this. Medications so far of not obviously helped. Other non medication treatments have been tried without success. December 02: Postop day 2. Patient reports pain is better. Is able tolerate transfers. Is avoiding opioid pain medicines as much as possible. Had oxycodone last evening and again this morning. Therapist recommends long term facility for rehab. Eating well. No abdominal pain or nausea. Passing gas. No BM. Urinating. Exam Narrative: Exam Narrative: He is alert and appears in no distress. His Parkinson's tremor is moderate this morning. Respirations are clear to auscultation. Cardiovascular: S1, S2, regular rate and rhythm. Abdomen: Bowel sounds active. Abdomen is soft without tenderness or mass. Right hip without significant bruising erythema or drainage from the wounds. Distally he has intact strength, pulses and sensation. Const: Vital Signs, click to edit/add: Vital Signs - 24 hr 12/02/23 11:00 12/02/23 15:00 12/02/23 15:00 Temperature 97.1 F L 97.2 F L Pulse Rate [Right Pulse Oximeter] 76 74 Respiratory Rate 18 18 18 Blood Pressure [Le ft Arm] 128/62 128/63 Pulse Oximetry 94 91 91 Oxygen Delivery Me thod Room Air Room Air Room Air 12/02/23 15:00 12/02/23 19:00 12/02/23 23:00 Temperature 97.5 F L Pulse Rate [Right Pulse Oximeter] 74 79 83 Respiratory Rate 18 18 18 Blood Pressure [Le ft Arm] 122/78 Pulse Oximetry 93 Oxygen Delivery Me thod Room Air 12/02/23 23:00 12/02/23 23:00 12/03/23 02:37 Temperature 97.9 F 98.6 F Pulse Rate [Right Pulse Oximeter] 83 85 Respiratory Rate 18 18 18 Blood Pressure [Le ft Arm] 127/68 121/74 Pulse Oximetry 90 90 91 Oxygen Delivery Me thod Room Air Room Air Room Air 12/03/23 08:14 12/03/23 08:14 Temperature 97.1 F L Pulse Rate [Right Pulse Oximeter] 77 Respiratory Rate 18 18 Blood Pressure [Le ft Arm] 125/70 Pulse Oximetry 93 93 Oxygen Delivery Me thod Room Air Room Air Documenting provider has reviewed patient's vital signs: yes Labs Labs: Laboratory Results - last 24 hr 12/03/23 05:56 WBC 9.73 RBC 4.53 Hgb 13.3 L Hct 39.9 MCV 88 MCH 29 MCHC 33 RDW Coeff of Christine 13.6 Plt Count 149 Neut % (Auto) 63.6 Lymph % (Auto) 23.8 Candler % (Auto) 11.5 H Eos % (Auto) 0.5 Baso % (Auto) 0.3 Neut # (Auto) 6.18 Lymph # (Auto) 2.32 Candler # (Auto) 1.10 H Eos # (Auto) 0.05 Baso # (Auto) 0.03 Abs Immat Gran (auto) 0.03 Imm/Tot Granulo (auto) 0.3
[2023-12-03 11:18] VITALS: BP 125/69; PULSE 94; RESP 18; TEMP 36.3; O2SAT 92
[2023-12-03 15:40] VITALS: BP 131/65; PULSE 89; RESP 16; TEMP 36.4; O2SAT 91
--- NOTE | 2023-12-03 16:38 | PC.SOCIAL ---
Discharge planning- Per therapy, patient will need a short-term rehab stay. Patient does not have medicare. Patient is still employed and has [employer] through patient's employer. Family will call insurance to get information on SNF coverage. Informed family that SNF's will run insurance coverage when reviewing referral and will provide this worker with information. Provided family with a list of SNF's in the area. Family provided top choices as listed below. 1. [facility]- Phone call to Yadira in admissions at [phone]. There are no openings this week. 2. [facility]- There are openings, faxed referral to [phone]. 3. [facility]- There is one opening, secure e-mailed referral to Hope Griggs. 4. [facility]- There will be an opening on Sunday and they will accept referral. Secure e-mailed referral to Mary Cary and Avinash Solomon in admissions. 5. [facility]- Left voicemail inquiring on bed availability. Received a phone call from Hope Griggs at [facility] informing that they can accept patient for admission for tomorrow before 2:00 pm. Phone call to patient's daughter Gisell to provide update. Gisell discussed with patient and patient's son and they would like to accept the bed. Family will transport patient at 11:00 am tomorrow. E-mail to Hope Griggs informing that patient will accept the bed and provided discharge time. Provided update to charge nurse and MD. Social work will continue to follow up as needed.
--- NOTE | 2023-12-03 18:26 | PC.NURSE ---
(shift 15-19)- Pt alert and oriented. Pt Assist of one with walker. Pt had complaints of pain ranging from 2-4; see EMAR for intervention. Pt has been accepted to [facility] on 12/04/23 at 11am and Pt?s family will transport. Pt?s dressing is dry and intact.
[2023-12-03 19:00] VITALS: BP 138/80; PULSE 75; RESP 16; TEMP 36.4; O2SAT 93
[2023-12-03] MEDS: ROSUVASTATIN CALCIUM 10 MG TABLET PO (20:36)
[2023-12-03] MEDS: VENLAFAXINE HCL 37.5 MG TABLET 75 MG PO (20:37)
[2023-12-03 22:36] VITALS: BP 116/59; PULSE 74; RESP 16; TEMP 36.4; O2SAT 91
[2023-12-04] MEDS: OXYCODONE 5 MG TABLET PO ×3 (02:31→09:02)
[2023-12-04 02:33] VITALS: BP 152/77; PULSE 67; RESP 16; TEMP 36.4; O2SAT 94
--- NOTE | 2023-12-04 05:29 | PC.NURSE ---
Shift note: Pt is doing well ambulating with A1, walker and GB. Maximum pain level reported was 5, 2x PRN pain medication given upon request. Pt A/O, tolerated regular diet well. At 2100, blood sugar level was 78, Glimepiride held, snack given and MD informed. Vitally stable. Pt had adequate sleep.
[2023-12-04 06:37] LABS: Basophils Absolute Auto 0.04 K/uL (0.00-0.30); Basophils Percent Auto 0.4 % (0.0-3.0); Eosinophils Absolute Auto 0.15 K/uL (0.00-0.50); Eosinophils Percent Auto 1.5 % (0.0-7.0); Hematocrit 40.9 % (37.0-53.0); Hemoglobin* 13.7 gm/dL (13.5-17.5); Immature Granulocytes Abs Auto 0.03 K/uL (0.00-0.30); Immature Granulocytes Pct Auto 0.3 %; Lymphocytes Absolute Auto 2.63 K/uL (0.90-2.90); Lymphocytes Percent Auto 27.1 % (20-44); Mean Corpuscular HGB Conc 34 gm/dL (32-36); Mean Corpuscular Hemoglobin 30 pg (26-34); Mean Corpuscular Volume 89 fL (80-100); Monocytes Percent Auto 12.7 % (0.0-11.0); Neutrophils Absolute Auto 5.63 K/uL (1.7-7.0); Platelet Count* 160 K/uL (140-440); RDW Coefficient of Variation % 13.5 % (11.5-15.5); Red Blood Count 4.62 m/uL (4.30-5.90); White Blood Count* 9.71 K/uL (4.50-11.00)
[2023-12-04 06:58] LABS: Slide Review Reflex No
[2023-12-04 07:42] VITALS: BP 128/66; PULSE 74; RESP 16; RESP 18; TEMP 36.3; O2SAT 94
[2023-12-04] MEDS: ACETAMINOPHEN 325 MG TABLET PO (07:55)
[2023-12-04] MEDS: METFORMIN 1,000 MG TABLET 1000 MG PO (07:56)
[2023-12-04] MEDS: CELECOXIB 200 MG CAPSULE PO (08:52)
[2023-12-04] MEDS: EMPAGLIFLOZIN 10 MG TABLET 25 MG PO (08:53)
[2023-12-04] MEDS: Entacapone 200 mg tablet PO (08:53)
[2023-12-04] MEDS: RIVAROXABAN 10 MG TABLET PO (08:54)
[2023-12-04] MEDS: SODIUM CHLORIDE 0.9 % (FLUSH) 10 ML SYRINGE 5 ML IVF (08:54)
[2023-12-04] MEDS: GLIMEPIRIDE 1 MG TABLET 2 MG PO (08:54)
[2023-12-04] MEDS: SENNOSIDES 1 TAB TABLET 2 TAB PO (08:54)
[2023-12-04] MEDS: GABAPENTIN 300 MG CAPSULE PO (08:54)
[2023-12-04] MEDS: VENLAFAXINE HCL 37.5 MG TABLET 150 MG PO (08:59)
--- NOTE | 2023-12-04 10:01 | PC.SOCIAL ---
Discharge planning- Patient will discharge today at 11:00 am to [facility] with family transporting patient to facility. Received a phone call from patient's daughter Gisell requesting information on a health care directive. Met with patient and patient's daughter Gisell and provided a copy of the [place] Health Care Directive including the short-form with instructions. Also, provided a copy of the POA for financial. Patient's family will assist patient in completing the health care directive and POA for financial. Completed preadmission screening. Confirmation #[id number]. Secure e-mailed a copy of PAS to Hope Griggs at [facility]. Will follow up as needed.
--- NOTE | 2023-12-04 10:40 | P.ORPN_ITS ---
Subjective Subjective Date Seen: 12/04/23 Principal diagnosis: POD 3 right femur intertrochanteric fracture fixation with IM nail Interval history: Patient reports doing well. No acute events over night. More pain this morning, stiffness in the right thigh. Pain managed with scheduled and PRN medications, ice. DVT prophylaxis: Rivaroxaban, SCDs, walking. Denies fevers, chills, aches, N/V, CP, SOB/IBRAHIM, or lightheadedness. Passing flatus. Ortho Exam Narrative Exam Narrative: -Patient appears comfortable in recliner; no apparent acute distress is. Wearing street clothes. -Alert and oriented times 3 -Operative hip/thigh swollen; soft tissues supple; no obvious erythema. No significant ecchymosis. Warmth appropriate -Surgical dressings clean, dry, intact; no obvious drainage, no erythematous streaking peripheral to the bandage -Bilateral calves soft and supple; no significant swelling, edema, tenderness, erythema, discoloration, warmth, or palpable cords -2+ DP/PT pulses, intact dermatomes and myotomes distally (5/5 strength). Const Vital Signs, click to edit/add: Vital Signs - 24 hr 12/03/23 11:18 12/03/23 15:40 12/03/23 15:40 Temperature 97.4 F L 97.6 F Pulse Rate [Right Pulse Oximeter] 94 89 Respiratory Rate 18 16 16 Blood Pressure [Left Arm] 125/69 131/65 Pulse Oximetry 92 91 91 Oxygen Delivery Method Room Air Room Air Room Air Oxygen Flow Rate 0 12/03/23 19:00 12/03/23 22:36 12/03/23 22:36 Temperature 97.6 F Pulse Rate [Right Pulse Oximeter] 75 74 Respiratory Rate 16 16 16 Blood Pressure [Left Arm] 138/80 Pulse Oximetry 93 91 Oxygen Delivery Method Room Air Room Air Oxygen Flow Rate 0 0 12/03/23 22:36 12/04/23 02:33 12/04/23 07:42 Temperature 97.6 F 97.6 F Pulse Rate [Right Pulse Oximeter] 74 67 74 Respiratory Rate 16 16 16 Blood Pressure [Left Arm] 116/59 L 152/77 H Pulse Oximetry 91 94 Oxygen Delivery Method Room Air Room Air Oxygen Flow Rate 0 0 12/04/23 07:42 12/04/23 07:42 Temperature 97.4 F L Pulse Rate [Right Pulse Oximeter] 74 Respiratory Rate 18 18 Blood Pressure [Left Arm] 128/66 Pulse Oximetry 94 94 Oxygen Delivery Method Room Air Room Air Oxygen Flow Rate Assessment and Plan Assessment and plan (1) Closed left hip fracture: Problem details: Postop day 3: Repaired by Dr. Dixon with intramedullary nail on November 30 without complications. Weight-bearing as tolerated Status: Acute (2) Parkinsons: Problem details: Likely to complicate his postoperative recovery. Doing fairly well postoperatively. May need SNF. Resume home medications Status: Acute (3) Diabetes: Problem details: Resume home medications and monitor. Blood sugar control improving Status: Acute (4) Anxiety: Problem details: Manage with medications and reassurance Status: Acute (5) Postoperative nausea: Problem details: Managed with Zofran - resolved Status: Acute (6) Hiccups: Problem details: Relatively intractable hiccups starting this morning the day after surgery. Did not respond to medication management. Did have an emesis yesterday, December 01, and since then has had no further hiccups Status: Acute Plan - Complete 23 hour perioperative antibiotics. - PT/OT consult for education and assistance. - Prescribed analgesics as needed - patient typically takes acetaminophen- codeine for chronic neck pain; hold this at this time. At SNF, if he feels that acetaminophen-codeine is a better option for pain, then discontinue oxycodone. Naproxen as needed. - DVT prophylaxis: rivaroxaban, SCDs, ambulation - Anticipation is for discharge to [facility] today, 12/04/23 if the patient remains medically stable, pain is controlled, and they are safe with mobilization.
--- NOTE | 2023-12-04 11:52 | PC.NURSE ---
Nursing Care Hours: [id number] Pt this shift calm and cooperative, alert and oriented. C/o pain 3-5/10, treated per eMAR. Tolerating regular diet, though appetite is diminished. Denies nausea. Encouraged to use Ensure or small frequent snacks throughout the day. Ice being used to R hip. Using IS, no cough. VSS. IV removed for discharge. Voiding. SB assist with walker and gait belt. Discharge instructions went over with pt and adult daughter. Reviewed pain management. Wheeled out to vehicle in stable condition. No insulin required.
--- NOTE | 2023-12-04 12:23 | PM.DS1 ---
DS: Providers Provider Date Seen: 12/04/23 Date of admission: 12/01/23 07:53 Primary care physician: Not a Local Provider Admitting Clinician: Saúl Puentes MD Attending Physician on discharge: Brian Sheffield MD Date of Discharge: 12/04/23 DS: Diagnosis Discharge Diagnosis (1) Closed left hip fracture: Status: Acute Problem details: Postop day 3: Repaired by Dr. Dixon with intramedullary nail on November 30 without complications. Weight-bearing as tolerated (2) Parkinsons: Status: Acute Problem details: Has done fairly well with rehab despite limitations caused by Parkinson's. Continuing prior medication management. (3) Diabetes: Status: Acute Problem details: Resume home medications and monitor. Blood sugar control improving (4) Anxiety: Status: Acute Problem details: Well managed during hospital stay (5) Postoperative nausea: Status: Acute Problem details: Managed with Zofran - resolved (6) Hiccups: Status: Acute Problem details: Relatively intractable hiccups starting this morning the day after surgery. Did not respond to medication management. Did have an emesis yesterday, December 01, and since then has had no further hiccups DS: Summary Hospital Course Hospital Course: Admission HPI: Cristobal Lai is a 68 year old male with Parkinson's disease who is admitted through the emergency room. He tells me he was in his usual state of health working at his desk and computer he got up tripped on a cord and fell down. His phone was unfortunately in the kitchen. He had to crawl across the floor to get to his phone. Pardo he was able to get a hold of help. He was leaning against the chair on his knees to get up and he heard a rib crack he has been having a little bit of chest pain in that rib area since then. He denies fevers chills nausea vomiting chest pain or other symptoms. He did hit his head. He states he did not lose consciousness. Nothing else hurts at the moment. He tells me prior to this he is able to ambulate around [facility] without having any chest pain able to climb up a flight of stairs. He denies any heart or lung problems. He underwent a CT scan of his head which was negative, negative chest x-ray. he did have a right hip fracture. He is now being admitted for further evaluation and treatment. He does state his having significant amount of pain in his hip. Patient underwent ORIF and intramedullary nailing with Dr. Dixon. There were no complications. Patient has done well postoperatively. He had some postoperative nausea which is resolved and some hiccups which also resolved. Pain control has been good. Parkinson's has been well managed he is making good progress with his therapy and mobility. Status at Discharge Functional status at discharge: uses cane/walker Overall status at discharge: patient is progressing back to baseline Time Spent with Patient Time attestation: Total time spent providing and/or coordinating discharge services: Time spent: Greater than 30 minutes Exam Narrative: Exam Narrative: He is alert and appears in no distress. Speech is normal. Breathing is unlabored. He has trace edema in his right ankle. No tenderness. Intact strength and sensation and pulses bilaterally. Const: Vital Signs, click to edit/add: Vital Signs - 24 hr 12/03/23 15:40 12/03/23 15:40 12/03/23 19:00 Temperature 97.6 F 97.6 F Pulse Rate [Right Pulse Oximeter] 89 75 Respiratory Rate 16 16 16 Blood Pressure [Le ft Arm] 131/65 138/80 Pulse Oximetry 91 91 93 Oxygen Delivery Me thod Room Air Room Air Room Air Oxygen Flow Rate 0 0 12/03/23 22:36 12/03/23 22:36 12/03/23 22:36 Temperature 97.6 F Pulse Rate [Right Pulse Oximeter] 74 74 Respiratory Rate 16 16 16 Blood Pressure [Le ft Arm] 116/59 L Pulse Oximetry 91 91 Oxygen Delivery Wy thod Room Air Room Air Oxygen Flow Rate 0 0 12/04/23 02:33 12/04/23 07:42 12/04/23 07:42 Temperature 97.6 F Pulse Rate [Right Pulse Oximeter] 67 74 Respiratory Rate 16 16 18 Blood Pressure [Le ft Arm] 152/77 H Pulse Oximetry 94 94 Oxygen Delivery Me thod Room Air Room Air Oxygen Flow Rate 0 12/04/23 07:42 Temperature 97.4 F L Pulse Rate [Right Pulse Oximeter] 74 Respiratory Rate 18 Blood Pressure [Le ft Arm] 128/66 Pulse Oximetry 94 Oxygen Delivery Me thod Room Air Oxygen Flow Rate Documenting provider has reviewed patient's vital signs: yes DS: Data Data Completed and Pending Labs on day of discharge: Labs from last 24 hours 12/04/23 06:23 WBC 9.71 RBC 4.62 Hgb 13.7 Hct 40.9 MCV 89 MCH 30 MCHC 34 RDW Coeff of Christine 13.5 Plt Count 160 Neut % (Auto) 58.0 Lymph % (Auto) 27.1 [place] % (Auto) 12.7 H Eos % (Auto) 1.5 Baso % (Auto) 0.4 Neut # (Auto) 5.63 Lymph # (Auto) 2.63 [place] # (Auto) 1.20 H Eos # (Auto) 0.15 Baso # (Auto) 0.04 Abs Immat Gran (auto) 0.03 Imm/Tot Granulo (auto) 0.3 Discharge Plan Discharge Disposition: [facility] Date of Admission: 12/01/23 07:53 Attending Provider on Discharge: Santosh Sheffield Primary Care Provider: Provider,Not a Local Condition: Stable Anticipated Discharge Date/Time: 12/04/23 10:00 Discharge Medications: New sennosides-docusate sodium [Senna-S] 8.6-50 mg tablet 1 - 4 tab-cap PO BID PRN (Reason: constipation) Qty: 60 0RF Rx Instructions: Hold medication if experiencing loose stools. acetaminophen 500 mg capsule 500 - 1,000 mg PO Q6H MDD 4000mg PRNQty: 100 0RF oxycodone 5 mg tablet 2.5 - 5 mg PO Q4-6H MDD 6 PRN (Reason: pain) Qty: 30 0RF Rx Instructions: Take as needed for postop pain: 2.5mg mild pain, 5mg moderate-severe pain; wean as tolerated. rivaroxaban 10 mg tablet 10 mg PO DAILY Qty: 14 0RF Rx Instructions: Medication for deep vein clot prevention. Pending your mobility at follow-up, may extend medication for 2 more weeks. Continued Rytary 36.25-145 mg capsule, extended release 3 cap PO TID rosuvastatin 10 mg tablet 10 mg PO HS venlafaxine 75 mg tablet 75 - 150 mg PO BID Rx Instructions: 2 TABS IN AM, 1 TAB IN PM glimepiride 2 mg tablet 2 mg PO BID diazepam 5 mg tablet 5 mg PO DAILY PRN ropinirole 3 mg tablet 3 mg PO TID PRN Patient Comments: PRESCRIBED TID, TAKES PRN DUE TO CONCERN W/ NAUSEA entacapone 200 mg tablet 200 mg PO TID Patient Comments: TAKE ONE TABLET BY MOUTH THREE TIMES DAILY trazodone 100 mg tablet 200 mg PO HS metformin 1,000 mg tablet 1,000 mg PO BIDWM Patient Comments: TAKE ONE TABLET BY MOUTH TWICE A DAY WITH MEALS gabapentin 300 mg capsule 300 mg PO TID Patient Comments: TAKE ONE CAPSULE BY MOUTH THREE TIMES DAILY Jardiance 25 mg tablet 25 mg PO DAILY Patient Comments: TAKE ONE TABLET BY MOUTH ONE TIME DAILY Held acetaminophen-codeine 300-30 mg tablet 1 tab PO TID PRN Hold Instructions: Resume on 12/31/23. If this is a chronic medication for patient, and he is no longer taking oxycodone as Rx by ortho postop right hip fracture, then patient may resume this medication sooner PRN. Discontinued aspirin [Adult Low Dose Aspirin] 81 mg tablet,delayed release (DR/EC) 81 mg PO DAILY Discharge Orders: Discharge Order (Routine); Ordered 12/04/23 Ordered By: Rigo David Activity Level: No Restrictions, Weight Bearing as Tolerated and Use Walker Activity Detail: Wound: ? Remove surgical dressings after 1 week. Remove dressings sooner if integrity is in question. ? No immersing wound in water; showering okay; light scrub with your hand and body soap, rinse, dab dry ? Sutures are under the skin, will dissolve; allow surgical glue to come off naturally; do not scrub the wound or apply ointments/lotions ? Call our office with any redness that streaks, excessive drainage from the wounds, or wound gapping. Ice/Elevate: ? Ice as needed for swelling and discomfort (ice pack); elevate extremity frequently above the heart. Motion/Exercise: ? Weight bear as tolerated operative extremity (walker/cane for ambulation assistance as needed) ? Per PT/OT. ? Straight leg raises daily: 1-2 sets of 10 reps Pain Medications: ? Oral narcotic as prescribed. Wean as tolerated. Additional acetaminophen as needed. If patient does better on his chronic pain medication of acetaminophen-codeine, he could discontinue oxycodone and take acetaminophen-codeine p.r.n.. Patient may also take naproxen as needed for pain. Blood Clot Prevention (DVT): ? Medication: 2 weeks 10mg once daily Xarelto; will reassess mobility at follow-up and determine if an additional 2 weeks of Xarelto is warranted. Driving: ? Do not drive while taking narcotic pain medication ? Anticipate 4-6 weeks no driving if operative leg is driving leg Dental: ? No elective dental work for 6 months post-op. If there is an urgent/emergent dental need, contact our office for an antibiotic prescription. Smoking/Alcohol: ? Do not smoke; do no drink alcohol especially when taking postoperative oral narcotic medication Seek Care from you Primary Care Provider if you experience the following issues in the postoperative phase and beyond: ? Bacterial infections such as: pneumonia, bacterial skin infection (cellulitis), UTI, high fever, chills unrelated to the operative body part - call your primary care physician urgently for treatment in hopes to protect your health and the metal implant. Referrals: ? PT, OT per patient preference - evaluate & treat (gait training, ROM, ADLs) Vaccines: ? No vaccines until 4-6 weeks postop Follow up: ? PA-C visit once discharged from SNF ? Ortho surgeon follow-up in 6 weeks; repeat radiographs AP pelvis, cross table lateral operative hip If there are any acute concerns regarding your surgery, please call our orthopedic clinic ([phone]) Discharge Diet: Diabetic Follow Up Appointments: [facility] [Outside] (Patient being discharged to [facility].) Provider,Not a Local [Primary Care Provider] - Forms: Workables Info Instructions Admit to: SNF Discharge Potential: Good Length of Stay: <30 days Can use facility standing orders?: Yes Rehab Potential: Good Therapy: Physical Therapy and Occupational Therapy Therapy Orders: Evaluate and Treat, Gait Training and ADL
== END 2023-12-04 11:25 | DRG 482 ==
LOC: ED 12-01 02:02 → MEDSURG 12-01 02:51
PROVIDERS: Orthopaedic Surgery Sports Medicine; Admitting Provider Family Medicine; Emergency Provider Internal Medicine; Visit Provider Internal Medicine
PROC: 0QS606Z Reposition Right Upper Femur with Intramedullary Internal Fixation Device, Open Approach (ICD-10-PCS; CPT 27245; principal; 2023-12-01 13:00)
DX: S72.141A Displaced intertrochanteric fracture of right femur, initial encounter for closed fracture (principal); G89.18 Other acute postprocedural pain; G20.A1 Parkinson's disease without dyskinesia, without mention of fluctuations; E11.9 Type 2 diabetes mellitus without complications; F41.9 Anxiety disorder, unspecified; F32.A Depression, unspecified; Z86.73 Personal history of transient ischemic attack (TIA), and cerebral infarction without residual deficits; Z79.84 Long term (current) use of oral hypoglycemic drugs; W01.198A Fall on same level from slipping, tripping and stumbling with subsequent striking against other object, initial encounter; Z91.81 History of falling; Y92.009 Unspecified place in unspecified non-institutional (private) residence as the place of occurrence of the external cause; R11.0 Nausea; R06.6 Hiccough; G89.29 Other chronic pain; M54.2 Cervicalgia
CPT/HCPCS: 01210; 36415; 64450; 70450; 71045; 72125; 73502; 73552; 76000; 76942; 80048; 81001; 81003; 82962; 85025; 85027; 93005; 97110; 97116; 97162; 97165; 97530; 97535; 99283; 99285; A9270; C1713; J0665; J0690; J1100; J1170; J1885; J2250; J2371; J2405; J2704; J2795; J3010; J3490; J7120

== ENCOUNTER 2023-12-27 10:02 | Outpatient (CLI) | payer OTHER, SELFPAY ==
--- NOTE | 2023-12-27 10:15 | CRLHL7_ITS ---
For Patients: As a result of the 21st Century Cures Act, medical imaging exams and procedure reports are released immediately into your electronic medical record. You may view this report before your referring provider. If you have questions, please contact your health care provider. INDICATION: PARKINSON TECHNIQUE: Modified barium swallow. Fluoroscopic time 2 minutes 7 seconds. FINDINGS/IMPRESSION: Laryngeal penetration occurred with thin barium. No aspiration. No obstruction. Some discoordination of the tongue regarding swallow initiation. Barium tablet passes normally. Dictated by Willian Meza MD @ 12/27/2023 11:45:02 AM (Electronically Signed)
== END 2023-12-27 10:03 | disposition home or self-care (01) ==
LOC: RAD 10:03
PROVIDERS: Visit Provider Nurse Practitioner Gerontology
DX: G20.A1 Parkinson's disease without dyskinesia, without mention of fluctuations (principal)
CPT/HCPCS: 74230; 92611

== ENCOUNTER 2024-02-06 09:54 | Outpatient (RCR) | payer OTHER, SELFPAY ==
--- NOTE | 2024-02-06 14:57 | OT.OPGNE2 ---
OT Outpatient General/Neuro Eval OT Outpatient General/Neuro Eval* Start: 02/06/24 14:45 Freq: Status: Active Protocol: Document 02/06/24 14:47 SMW (Rec: 02/06/24 14:56 SMW [id number]) E-signed By Rylee Dumont OT OT Outpatient Evaluation Details Type Type Eval Complexity Low Insurance Information Insurance Information Insurance Information [facility] History/Precautions Current Condition Referring Provider Tana Parekh PA-C Medical Diagnoses Fracture of right femur Parkinson's Disease Treatment Diagnoses driving assessment Medical/Functional History Prior Level of Function/Mobility Patient lives alone in his own one level home. He is I in all ADLs and most IADLs. He has support from children. 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 Patient Subjective Subjective Patient Subjective I really want to drive. Pain Assessment Pain Pain No Balance Assessment Comments Balance Comments Patient now using a FWW after femur fracture and diagnosis of Parkinson's Disease. Assessment Assessment Assessment The patient is a pleasant 68 year old male referred to outpatient OT to determine patient's ability to return to driving. The patient had a fall in his home on 11/30/23 with a subsequent right femur fracture. He participated in rehab at [facility] for ~ 5 weeks. He then had home health and will now being seeing outpatient PT. The patient was told to not drive by his PT at the and then when he asked the ortho team during his follow up, he was told he needed to see OT. The patient is no longer taking narcotics, has no pain. The MoCa was administered with the patient scoring 26/30 which is a passing score. Patient able to pass the brake /accelerator test as well as the heel toe test. From a skilled OT perspective, the patient appears to be able to safely return to driving. No further skilled OT warranted. Occupational Therapy Treatment Plan - OP Treatment Plan Treatment Plan Evaluation Certification Certification Statement I Certify That: Therapy Services Provided, Therapy Plan Established, Therapy Plan Reviewed Certification Information Clinic ID # [id number] Initial Certification Date 02/06/24 Provider Signature Required Yes Provider Signature Shows Agreement With POC & Medical Necessity Physician NPI Number Write NPI# Here Physician Comment/Change Comment or Changes Physician Signature & Date Requested Please Sign/Date Here
== END 2024-06-05 23:59 | disposition home or self-care (01) ==
PROVIDERS: Visit Provider Physician Assistant
DX: S72.002D Fracture of unspecified part of neck of left femur, subsequent encounter for closed fracture with routine healing (principal); G20.A1 Parkinson's disease without dyskinesia, without mention of fluctuations; Z51.89 Encounter for other specified aftercare
CPT/HCPCS: 97165

== ENCOUNTER 2024-04-21 13:44 | Emergency (ER) | payer OTHER, SELFPAY ==
[2024-04-21 13:59] VITALS: BP 117/79; PULSE 78; RESP 18; TEMP 36.3; O2SAT 97; BMI 29.0
--- NOTE | 2024-04-21 14:03 | CRLHL7_ITS ---
For Patients: As a result of the Century Cures Act, medical imaging exams and procedure reports are released immediately into your electronic medical record. You may view this report before your referring provider. If you have questions, please contact your health care provider. INDICATION: LEFT HEAD STRIKE ON ELIQUIS TECHNIQUE: CT of the head was performed without IV contrast. COMPARISON: 09/06/2022. FINDINGS: Parenchyma: No acute hemorrhage, infarction, or mass. Mild scattered periventricular white matter hypoattenuation is nonspecific and is favored to represent chronic small vessel ischemic disease. Ventricles and extra-axial spaces: Appropriate for age. Visualized paranasal sinuses: Clear. Mastoid air cells: Clear. Bones: No focal abnormality. Additional comment: Left scleral buckle. IMPRESSION: No acute intracranial abnormality. Please note that all CT scans at this facility use dose modulation, iterative reconstruction, and/or weight-based dosing when appropriate to reduce radiation dose to as low as reasonably achievable. Dictated by Lico Florez MD @ 04/21/2024 3:23:05 PM (Electronically Signed)
[2024-04-21 16:00] VITALS: BP 115/68; PULSE 71; RESP 18; O2SAT 94
[2024-04-21 16:09] VITALS: PULSE 69; O2SAT 92
--- NOTE | 2024-04-21 16:17 | ED_ITS ---
HPI - Head Injury General Chief complaint: Head Injury/Pain Stated complaint: hit head, vision changes Time Seen by Provider: 04/21/24 15:49 History of Present Illness HPI Narrative: This 68-year-old male comes in for evaluation of a mild head injury that that occurred yesterday. He was in the shower and slipped on the bench and bumped his head. He did not have any loss of consciousness and does not complain of headache. He is on anticoagulants and his son thought he ought to come in today to be checked. He did states that he felt some lightheadedness at times today and has had some floaters in his vision which is not new for him. He does not report any headache and is ambulating normally and has normal speech. He does not have any nausea or vomiting or other sign of neurologic deficit. Related Data Home Medications ?Medication ?Instructions ?Recorded ?Confirmed empagliflozin 25 mg tablet 25 mg PO DAILY 01/31/22 01/23/24 (Jardiance) entacapone 200 mg tablet 200 mg PO TID 01/31/22 01/23/24 gabapentin 300 mg capsule 300 mg PO TID 01/31/22 01/23/24 metformin 1,000 mg tablet 1,000 mg PO BIDWM 01/31/22 01/23/24 trazodone 100 mg tablet 200 mg PO HS 01/31/22 01/23/24 carbidopa ER 36.25 mg-levodopa 145 3 cap PO TID 10/11/23 01/23/24 mg capsule,extended release (Rytary) rosuvastatin 10 mg tablet 10 mg PO HS 10/11/23 01/23/24 venlafaxine 75 mg tablet 75 - 150 mg PO BID 10/11/23 01/23/24 glimepiride 2 mg tablet 2 mg PO BID 12/01/23 01/23/24 ketorolac 10 mg tablet mg PO 01/23/24 01/23/24 apixaban 5 mg tablet (Eliquis) 5 mg PO BID 04/21/24 04/21/24 Previous Rx's ?Medication ?Instructions ?Recorded acetaminophen 500 mg capsule 500 - 1,000 mg (1 - 2 x 500 mg) PO 12/04/23 Q6H PRN #100 caps diazepam 5 mg tablet 5 mg PO DAILY PRN #5 tabs 12/04/23 Allergies Allergy/AdvReac Type Severity Reaction Status Date / Time amoxicillin Allergy Intermediate Verified 01/23/24 11:20 ampicillin Allergy Intermediate Verified 01/23/24 11:20 Review of Systems Status of ROS: Reports: 10 or more systems reviewed and unremarkable except as noted in History and below Narrative: Constitutional: No fevers, no weight gain or loss. Eyes: No discharge. No vision changes. HENT: No congestion, no sore throat, no ear pain. Cardiovascular: No chest pain, no palpitations. Respiratory: No shortness of breath, no wheezes, no cough. Gastrointestinal: No abdominal pain, no vomiting, no diarrhea. Genitourinary: No dysuria, no hematuria. Musculoskeletal: Normal range of motion. Skin: No rashes, no pruritis. Neurological: No dizziness, weakness, sensory change, speech change. Endo/Heme/Allergies: No bruising or bleeding. No polydipsia. Pysch: no suicidality, no anxiety, no insomnia. All other systems reviewed and are negative. [facility] Medical History (Updated 04/21/24 @ 16:22 by Riley Jay MD) Parkinson's disease ?G20.A1 - Parkinson's disease without dyskinesia, without mention of fluctuations (ICD-10) Depression ?F32.A - Depression, unspecified (ICD-10) Cerebrovascular accident (CVA) ?I63.9 - Cerebral infarction, unspecified (ICD-10) Type 2 diabetes mellitus ?E11.9 - Type 2 diabetes mellitus without complications (ICD-10) Chest wall pain ?R07.89 - Other chest pain (ICD-10) Health care directive on file ?Z78.9 - Other specified health status (ICD-10) Closed left hip fracture ?S72.002A - Fracture of unspecified part of neck of left femur, initial encounter for closed fracture (ICD-10) Detached retina ?H33.20 - Serous retinal detachment, unspecified eye (ICD-10) Anxiety ?F41.9 - Anxiety disorder, unspecified (ICD-10) Depression ?F32.A - Depression, unspecified (ICD-10) Arthritis ?M19.90 - Unspecified osteoarthritis, unspecified site (ICD-10) Neck pain ?M54.2 - Cervicalgia (ICD-10) Stroke ?I63.9 - Cerebral infarction, unspecified (ICD-10) Diabetes ?E11.9 - Type 2 diabetes mellitus without complications (ICD-10) Parkinsons ?G20 - Parkinson's disease (ICD-10) Surgical History (Updated 01/23/24 @ 11:32 by Dalila Spivey ~ [facility]) Status post fracture of femur (12/01/23) ?Z87.81 - Personal history of (healed) traumatic fracture (ICD-10) History of detached retina repair ?Z98.890 - Other specified postprocedural states (ICD-10) ?Z86.69 - Personal history of other diseases of the nervous system and sense organs (ICD-10) H/O shoulder surgery (~2007) ?Z98.890 - Other specified postprocedural states (ICD-10) History of tonsillectomy ?Z90.89 - Acquired absence of other organs (ICD-10) History of appendectomy ?Z90.49 - Acquired absence of other specified parts of digestive tract (ICD- 10) S/P cataract surgery ?Z98.49 - Cataract extraction status, unspecified eye (ICD-10) Family History Other Diabetes Skin cancer Stroke Social History What is your current living situation?: I presently have a place to live Problems where you live: no known problems Problems where you live details: N/A In the past 12 months, utilities in danger of being shut off: no In the past 12 mos, have been you worried that your food would run out before you had money to buy more?: never true In the past 12 mos, the food you bought just didn't last and you didn't have money to buy more?: never true Highest level of school completed/degree received: Bachelor's degree Smoking Status: Never smoker Do you use any of these nicotine containing products: None Second hand tobacco smoke exposure: No How often do you have a drink containing alcohol: never How often do you have six or more drinks on one occasion: Never AUDIT-C Alcohol total score: 0 Non-prescribed substance use: denies use Caffeine: No How often does anyone, including family, friends and others, physically hurt you : never How often does anyone, including family, friends and others, insult or talk down to you: never How often does anyone, including family, friends and others, threaten you with harm: never How often does anyone, including family, friends and others, scream or curse at you: never service: No Exam Narrative: Exam Narrative: Constitutional: Well-developed, well-nourished, no acute distress. HEENT: Normocephalic, atraumatic. Neck: Normal range of motion. Nontender. Supple. Heart: Regular. No murmurs. Normal rate. Intact distal pulses. Lungs: Clear to auscultation. No chest discomfort. No wheezes, rhonchi, or rales. Abdomen: Normal bowel sounds. Nontender. No rebound tenderness. Genitalia: Deferred. Back: No midline tenderness. Normal range of motion. Extremities: Normal range of motion. No injury. Skin: Intact. No rash. Warm. No erythema or pallor. Neurologic: No altered sensation. No weakness. Alert and oriented. No facial asymmetry. Tongue is midline. Kzjcil-ek-godt is normal. No pronator drift. Rehabilitation Aide/Scheduler strength is equal bilaterally. Able to raise each leg from the bed. Psychiatric: No suicidality. No anxiety or depression. No insomnia. Nursing notes and vitals signs are reviewed. Const: Vital Signs, click to edit/add: Vital Signs - 24 hr 04/21/24 13:59 04/21/24 16:00 Temperature 97.3 F L Pulse Rate [Pulse Oximeter] 78 71 Respiratory Rate 18 18 Blood Pressure [Ri ght Upper Arm] 117/79 115/68 Pulse Oximetry 97 94 Oxygen Delivery Me thod Room Air Room Air Course Vital Signs Vital signs: Initial Vital Signs Temperature 97.3 F L 04/21/24 13:59 Temperature Source Temporal Artery Scan 04/21/24 13:59 Pulse Rate 78 04/21/24 13:59 Respiratory Rate 18 04/21/24 13:59 Blood Pressure 117/79 04/21/24 13:59 Blood Pressure Mean 91 04/21/24 13:59 Pulse Oximetry 97 04/21/24 13:59 Oxygen Delivery Method Room Air 04/21/24 13:59 Vital Signs Temperature 97.3 F L 04/21/24 13:59 Pulse Rate 78 04/21/24 13:59 Respiratory Rate 18 04/21/24 13:59 Blood Pressure 117/79 04/21/24 13:59 Pulse Oximetry 97 04/21/24 13:59 Oxygen Delivery Method Room Air 04/21/24 13:59 Temperature 97.3 F L 04/21/24 13:59 Pulse Rate 71 04/21/24 16:00 Respiratory Rate 18 04/21/24 16:00 Blood Pressure 115/68 04/21/24 16:00 Pulse Oximetry 94 04/21/24 16:00 Oxygen Delivery Method Room Air 04/21/24 16:00 MDM - Head Injury MDM Narrative Medical decision making narrative: This patient comes in to be checked out after bumping his head yesterday. His son raised concern because he is taking Eliquis. He does not have any neurologic deficits and does not report a headache. He did not have loss of consciousness. A CT scan of the head is obtained and it read returns with no acute findings. The patient is reassured with these results. He is okay to be discharged home to continue current plans. Imaging Data CT scan - head: Radiologist's impression: no acute intracranial process. Discharge Plan Discharge Clinical Impression: Closed head injury Patient Disposition: Home, Self-Care Condition: Stable Additional Instructions: Continue current plans. Follow up with MD return if worsening. Prescriptions: No Action Rytary 36.25-145 mg capsule, extended release 3 cap PO TID rosuvastatin 10 mg tablet 10 mg PO HS venlafaxine 75 mg tablet 75 - 150 mg PO BID Rx Instructions: 2 TABS IN AM, 1 TAB IN PM ketorolac 10 mg tablet PO glimepiride 2 mg tablet 2 mg PO BID acetaminophen 500 mg capsule 500 - 1,000 mg PO Q6H MDD 4000mg PRNQty: 100 0RF diazepam 5 mg tablet 5 mg PO DAILY PRNQty: 5 0RF entacapone 200 mg tablet 200 mg PO TID Patient Comments: TAKE ONE TABLET BY MOUTH THREE TIMES DAILY trazodone 100 mg tablet 200 mg PO HS metformin 1,000 mg tablet 1,000 mg PO BIDWM Patient Comments: TAKE ONE TABLET BY MOUTH TWICE A DAY WITH MEALS gabapentin 300 mg capsule 300 mg PO TID Patient Comments: TAKE ONE CAPSULE BY MOUTH THREE TIMES DAILY Jardiance 25 mg tablet 25 mg PO DAILY Patient Comments: TAKE ONE TABLET BY MOUTH ONE TIME DAILY Eliquis 5 mg tablet 5 mg PO BID Follow Up/Referrals: Provider,Not a Local [Primary Care Provider] - Stand Alone Forms: MyHealth Info Instructions
--- OUTSIDE RECORDS SUMMARY | 2024-04-21 16:31 | XMS_ITS | Encounter Summary ---
Author Organization [facility] Address [address] [place] [address] Care Team Providers Care Alley Tender Name Role Phone Unavailable Primary Care Provider Unavailabl e Reason for Referral * Outpatient (Routine) - Authorized Specialty Diagnoses / Procedures Referred By Controsina t Referred To Contact Emergency Medicine Diagnoses Thrombosis Deep Vein Acute Lower Extremity Right (HCC) Jewels Porter APRN, C.N.P., D.N.P. [address] [place] [address] Phone: tel: fax: [facility] Referral ID Status Reason Start Date Expiration Date V isits Requested Visits Authorized [id number] Authorized 02/14/2024 08/15/2025 1 1 Reason for Visit * Reason Comments Leg Swelling R leg swelling; Ongo ing, increasing R leg pain over past few days; Noticed increased swelling today. Femur fracture in November, no longer on blood thinners Encounter Details Date Type Department Care Team (Late st Contact Info) Description 02/14/2024 1:48 PM CDT - 02/14/2024 3:35 PM CDT Emergency [facility] [address] [place] [phone] Isi Quintanilla, P.A. [address] [place] [phone] Thrombosis Deep Vein Acute Lower Extremity Right (HCC) (Primary Dx) Discharge Disposition: Home or Self Care Social History Tobacco Use Types Packs/Day Years Used Date Smoking Tobacco: Never Smokeless Tobacco: Never Tobacco Cessation:Counseling Given: Not Answered Alcohol Use Standard Drinks/Week Comments Never 0 (1 standard drink = 0.6 oz pur e alcohol) Dental Answer Date Recorded Dental: Regular Dentist Unknown 08/05/19 21 Sex and Gender Information Value Date Recorded Sex Assigned at Not on file Legal Sex Male 8:09 PM [employer] Gender Identity Not on file Sexual Orientation Not on file documented as of this encounter Last Filed Vital Signs Vital Sign Reading Time Taken Comments Blood Pressure 147/83 02/14/2024 3:15 PM CDT Pulse 65 02/14/2024 3:30 PM CDT Temperature 36.3 ??C (97.3 ??F) 02/14/2024 1:54 PM CD T Respiratory Rate 18 02/14/2024 1:54 PM CDT Oxygen Saturation 97% 02/14/2024 3:30 PM CDT Inhaled Oxygen Concentration - - Weight 93 kg (205 lb 0.4 oz) 02/14/2024 1:54 PM CDT Height - - Body Mass Index - - documented in this encounter Discharge Instructions * Attachments The following attachments cannot be sent through Care Everywhere. * Deep Vein Thrombosis ([place]amibian) documented in this encounter Medications at Time of Discharge acetaminophen (TylenoL) 500 mg tablet Take 500 mg by mouth every 6 (six) hours as needed for pain. Reports taking 3 tablets apixaban (Eliquis) 5 mg tablet Take 10 mg BID for 7 days. Then 5 mg BID. 70 tablet 02/14/[address] tablet Take 81 mg by mouth daily. benzonatate (TESSALON PERLES) 100 mg capsule Take 100 mg by mouth 3 (three) times a day as needed. 07/16/2020 diazePAM (VALIUM) 5 mg tablet Take 5 mg by mouth daily as needed. 06/09/2020 entacapone (COMTAN) 200 mg tablet Take 200 mg by mouth 4 (four) times a day. 07/07/2020 gabapentin (Neurontin) 300 mg capsule Take 300 mg by mouth 3 (three) times a day. 01/31/2022 glimepiride (AmaryL) 2 mg tablet Take 2 mg by mouth 2 (two) times a day. 12/01/2023 Jardiance 10 mg tablet Take 10 mg by mouth daily. 07/02/2020 metFORMIN (GLUCOPHAGE) 1,000 mg tablet Take 1,000 mg by mouth 2 (two) times a day with meals. 04/29/2020 rosuvastatin (Crestor) 10 mg tablet Take 10 mg by mouth daily. 10/11/2023 Rytary 36.25-145 mg per ER capsule Take 3 capsules by mouth 3 (three) times a day. 07/11/2020 traZODone (DESYREL) 100 mg tablet TAKE ONE OR TWO TABLETS BY MOUTH ONCE DAILY AT BEDTIME NEEDED FOR SLEEP 05/16/2020 venlafaxine (EFFEXOR) 75 mg tablet Take 2 tablets by mouth every morning and 1 tablet every evening 05/09/2020 vitamin E 400 unit capsule Take 400 Units by mouth daily. documented as of this encounter ED Notes * Jewels Porter APRN, C.N.P., D.N.P. - 02/14/2024 3:35 PM CDT SUBJECTIVE CHIEF COMPLAINT / REASON FOR VISIT Leg Swelling (R leg swelling; Ongoing, increasing R leg pain over past few days; Noticed increased swelling today. Femur fracture in November, no longer on blood thinners) HISTORY OF PRESENT ILLNESS This is a 68-year-old male patient presenting to the emergency department for evaluation of right leg swelling. Of note, he had a right femur fracture in November with surgical repair. He was discharged with Xarelto for approximately 6 weeks. He has not had any complications following his surgery. Overthe last few days, he has now noticed increased pain in the right lower leg, specifically in the posterior aspect of the knee and the right calf. He has also noticed extensive swelling of the right lower leg. He has not had any chest pain, shortness for breath. He has not had any difficulty with range of motion of the right lower extremity including the right hip or right knee. He has not noticedany extensive warmth or redness of the right lower extremity. REVIEW OF SYSTEMS Constitutional: Negative. HENT: Negative. Eyes: Negative. Respiratory: Negative. Cardiovascular: Negative. Gastrointestinal: Negative. Endocrine: Negative. Genitourinary: Negative. Musculoskeletal: Positive for extremity pain. Skin: Negative. Allergic/Immunologic: Negative. Neurological: Negative. Hematological: Negative. Psychiatric/Behavioral: Negative. ALLERGIES / CONTRAINDICATIONS Reviewed in medical record. CURRENT MEDICATIONS Reviewed in medical record. MEDICAL HISTORY Past Medical History: Diagnosis Date Diabetes Mellitus Type 2 (HCC) Parkinsonism Unspecified (HCC) Transient Ischemic Attack Patient Active Problem List Diagnosis Date Noted Diabetes Mellitus Type 2 (HCC) 07/16/2020 Stroke Cerebrovascular Accident Personal History 07/16/2020 COVID-19 Infection 07/16/2020 Parkinsonism Unspecified (HCC) 07/16/2020 SURGICAL HISTORY History reviewed. No pertinent surgical history. FAMILY HISTORY Reviewed in chart. SOCIAL HISTORY Social History Tobacco Use Smoking status: Never Smokeless tobacco: Never Substance Use Topics Alcohol use: Never Social History Substance and Sexual Activity Alcohol Use Never Social History Substance and Sexual Activity Drug Use Never OBJECTIVE VITAL SIGNS Initial Vitals Temperature 02/14/24 1354 36.3 ??C Pulse Rate 02/14/24 1354 79 Heart Rate -- Resp Rate 02/14/24 1354 18 Blood Pressure 02/14/24 1354 144/72 SpO2 02/14/24 1354 93 % Pain Score 02/14/24 1351 5 - Moderate pain PHYSICAL EXAMINATION Constitutional: Nursing note and vitals reviewed. No distress. HENT: Head: Normocephalic and atraumatic. Cardiovascular: Normal rate, regular rhythm and normal heart sounds. Pulmonary/Chest: Effort normal. Musculoskeletal: General: Normal range of motion. Cervical back: Normal range of motion. Right lower leg: Swelling present. Left lower leg: Normal. Neurological: Alert and oriented to person, place, and time. Skin: Skin is warm and normal color. He is not diaphoretic. Psychiatric: He has a normal mood and affect. Behavior is normal. Judgment and thought content normal. ED COURSE: ED Course as of 02/15/24 1343 Edith Feb 14, 2024 1455 US Lower Extremity Veins Right IMPRESSION: Positive for acute DVT. Thrombus is seen in the common femoral, femoral, and popliteal veins, as well as 2 peroneal veins. Final Diagnoses: as of 02/15/24 1343 Thrombosis Deep Vein Acute Lower Extremity Right ([facility]) DIAGNOSTICS RADIOLOGY: US Lower Extremity Veins Right Final Result Positive for acute DVT. Thrombus is seen in the common femoral, femoral, and popliteal veins, as well as 2 peroneal veins. ASSESSMENT / PLAN IMPRESSION AND PLAN This is a 68-year-old male patient presenting to the emergency department for right lower extremityswelling. See HPI for further details. On exam, he does have significant swelling of the right lower extremity. He is quite tender to palpation over the posterior aspect of the right lower extremity.Pulses are intact. Ultrasound imaging was completed to rule out DVT. Ultrasound does reveal a DVT in the right lower extremity. Discussed anticoagulation with the patient. He had previously been on Xarelto. Upon discussion with the pharmacist, Xarelto and Eliquis are both covered by the patient's insurance. Plan to start Eliquis. He is to take 10 mg b.i.d. for 7 days. He will then take 5 mg b.i.d. for at least the next 3 months. He should follow-up with family Medicine to further discuss anticoagulation and to follow-up on the right lower extremity DVT. Return precautions were discussed. I reviewed previous medical records including documentation from previous visits. I reviewed the radiology report(s). The Radiology exam interpretation(s) is/are abnormal and documented in ED Course. DIAGNOSIS: Final diagnoses: [I82.401] Thrombosis Deep Vein Acute Lower Extremity Right (HCC) ED DISCHARGE MEDS: ED Prescriptions Medication Sig Dispense Start Date End Date Auth. Provider apixaban (Eliquis) 5 mg tablet Take 10 mg BID for 7 days. Then 5 mg BID. 70 tablet 02/14/2024 -- Jewels Porter APRN, C.N.P., D.N.P. DISPOSITION: Home/self-care FOLLOW UP: Follow up with PCP Jewels Porter APRN, C.N.P., D.N.P. Emergency Medicine Jewels Porter APRN, C.N.P., D.N.P. 02/15/24 0023 * Isi Quintanilla, P.A. - 02/14/2024 3:35 PM CDT I personally performed the substantive portion of this service which was medical decision-making. Pertinent MDM details included below. Refer to the GRAPHIC ARTS TECHNICIAN/PA's note for additional details. Patient was evaluated independently of Jewels Porter DNP. I agree with her documentation and plan ofcare. In brief, this is a 68 year old male who presented to the ED for evaluation of right lower extremity swelling. He underwent surgical fixation of right femur fracture at an outside facility for f emur fracture. Exam demonstrates swelling and tenderness of the right lower extremity. US was obtained and is positive for DVT. Discussed anticoagulation with pharmacist. Will start on Eliquis which appears to be covered by his insurance. Follow up with PCP. Discussed ED return precautions. ED Course as of 02/15/24 1356 Edith Feb 14, 2024 1458 Consulting with pharmacy regarding most covered anticoagulation for the patient Fri Feb 15, 2024 1353 IMPRESSION: Positive for acute DVT. Thrombus is seen in the common femoral, femoral, and popliteal veins, as well as 2 peroneal veins. Final Diagnoses: as of 02/15/24 1356 Thrombosis Deep Vein Acute Lower Extremity Right (HCC) Isi Quintanilla, P.A. 02/15/24 1356 documented in this encounter Plan of Treatment Scheduled Referrals Name Type Priority Associated Diagnoses Orde r Schedule POST ED VISIT Family Medicine Outpatient Referral Routine Thrombosis Deep Vein Acute Lower Extremity Right (HCC) Expected: 02/14/2024, Expires: 05/15/2025 documented as of this encounter Procedures Procedure Name Priority Date/Time Associated Diagnosis Comments US LOWER EXTREMITY VEINS RIGHT RAD - Semiurgent (Fast; most ED patients; some inpatients) 02/14/2024 2:32 PM CDT documented in this encounter Results * US Lower Extremity Veins Right (02/14/2024 2:32 PM CDT) Anatomical Region Laterality Modality Lower Extremity, Ultrasound RST LOS, Ultrasound ARZ LOS, Ultrasound FLA LOS Right Ultrasound Impressions 02/14/2024 2:38 PM CDT Positive for acute DVT. Thrombus is seen in the common femoral, femoral, and popliteal veins, as well as 2 peroneal veins. Narrative 02/14/2024 2:38 PM CDT EXAM: US LOWER EXTREMITY VEINS RIGHT Exam performed with color and spectral Doppler analysis. COMPARISON: None. FINDINGS: RIGHT: Common Femoral Vein: Acute DVT. Profunda Femoral Vein: Negative. Femoral Vein: Acute DVT. Popliteal Vein: Acute DVT. Gastrocnemius Veins: Negative where seen. Soleal Veins: Negative where seen, Not well seen. Posterior Tibial Veins: Negative where seen, Not well seen. Peroneal Veins: Acute DVT. Great Saphenous Vein: Negative where seen. Small Saphenous Vein: Not evaluated. Popliteal Fossa: Negative. Other: n/a Information on venous thrombosis and management can be found on the [facility] site. Link [email or web address] Procedure Note Santosh Flower M.D. - 02/14/2024 EXAM: US LOWER EXTREMITY VEINS RIGHT Exam performed with color and spectral Doppler analysis. COMPARISON: None. FINDINGS: RIGHT: Common Femoral Vein: Acute DVT. Profunda Femoral Vein: Negative. Femoral Vein: Acute DVT. Popliteal Vein: Acute DVT. Gastrocnemius Veins: Negative where seen. Soleal Veins: Negative where seen, Not well seen. Posterior Tibial Veins: Negative where seen, Not well seen. Peroneal Veins: Acute DVT. Great Saphenous Vein: Negative where seen. Small Saphenous Vein: Not evaluated. Popliteal Fossa: Negative. Other: n/a Information on venous thrombosis and management can be found on the[facility] site. [email or web address] IMPRESSION: Positive for acute DVT. Thrombus is seen in the common femoral, femoral,and popliteal veins, as well as 2 peroneal veins. us Isi Patiño IMLeanne US PROCEDURES Final Resul t documented in this encounter Visit Diagnoses Diagnosis Thrombosis Deep Vein Acute Lower Extremity Right (HCC)- Primary documented in this encounter
--- OUTSIDE RECORDS SUMMARY | 2024-04-21 16:31 | XMS_ITS | Clinical Summary ---
Author Organization [facility] Address [address] [place] [id number] Care Team Providers Care Head Charger Name Role Phone Unavailable Primary Care Provider Unavailabl e Source Comments Patient records contain information from all sites at [facility]. For routine questions regarding patient records, call [phone] during business hours, M-F 8:00 AM - 5:00 PM Central Time. Record requests for emergency care only can be directed to [phone] at any time.[facility] Allergies Active Allergy Reactions Criticality Noted Date Comments Amoxicillin Rash High 07/18/2020 Ampicillin Rash High 07/18/2020 Medications * This document contains information received from the source organization and may not represent a complete record from that organization. benzonatate (TESSALON PERLES) 100 mg capsule Take 100 mg by mouth 3 (three) times a day as needed. 07/16/2020 Active Rytary 36.25-145 mg per ER capsule Take 3 capsules by mouth 3 (three) times a day. 07/11/2020 Active diazePAM (VALIUM) 5 mg tablet Take 5 mg by mouth daily as needed. 06/09/2020 Active entacapone (COMTAN) 200 mg tablet Take 200 mg by mouth 4 (four) times a day. 07/07/2020 Active Jardiance 10 mg tablet Take 10 mg by mouth daily. 07/02/2020 Active metFORMIN (GLUCOPHAGE) 1,000 mg tablet Take 1,000 mg by mouth 2 (two) times a day with meals. 04/29/2020 Active traZODone (DESYREL) 100 mg tablet TAKE ONE OR TWO TABLETS BY MOUTH ONCE DAILY AT BEDTIME NEEDED FOR SLEEP 05/16/2020 Active venlafaxine (EFFEXOR) 75 mg tablet Take 2 tablets by mouth every morning and 1 tablet every evening 05/09/[address] tablet Take 81 mg by mouth daily. Active vitamin E 400 unit capsule Take 400 Units by mouth daily. Active acetaminophen (TylenoL) 500 mg tablet Take 500 mg by mouth every 6 (six) hours as needed for pain. Reports taking 3 tablets Active gabapentin (Neurontin) 300 mg capsule Take 300 mg by mouth 3 (three) times a day. 01/31/2022 Active glimepiride (AmaryL) 2 mg tablet Take 2 mg by mouth 2 (two) times a day. 12/01/2023 Active rosuvastatin (Crestor) 10 mg tablet Take 10 mg by mouth daily. 10/11/2023 Active apixaban (Eliquis) 5 mg tablet Take 10 mg BID for 7 days. Then 5 mg BID. 70 tablet 02/14/2024 Active Active Problems Problem Noted Date Diagnosed Date Diabetes Mellitus Type 2 07/16/2020 Stroke Cerebrovascular Accident Personal History 07/16/2020 COVID-19 Infection 07/16/2020 Parkinsonism Unspecified 07/16/2020 Encounters Date Type Department Care Team Description 02/14/2024 1:48 PM CDT - 02/14/2024 3:35 PM CDT Emergency [facility] [address] [place] [id number] Isi Quintanilla, P.A. 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 Gender Identity Not on file Sexual Orientation Not on file Last Filed Vital Signs Vital Sign Reading [...] - - Body Mass Index - - Plan of Treatment Health Maintenance Due Date Last Done Comments CT Colonography 1957 Cologuard 1957 Colonoscopy 1957 Colorectal Cancer Screening 1957 Creatinine Level (Kidney Function Test) 1957 Diabetic Office Visit with Foot Exam 1957 Dilated Eye Exam 1957 FIT 1957 Hemoglobin A1C 1957 Hepatitis C Screening 1957 Lipid (Cholesterol) Screening 1957 Office Visit for Blood Pressure Check / Re-check 1957 Urine Albumin 1957 Pneumococcal vaccine (65+ years) (1 of 2 - PCV) 1963 Zoster Vaccines (1 of 2) 2007 Hepatitis B Vaccines (1 of 3 - Risk 3-dose series) 2017 Depression Screening (Annual PHQ-2) 06/11/2023 Fall Risk Screen (Annual) 06/11/2023 COVID-19 Vaccine ( - season) 2024 01/12/2022, 04/25/2021, 10/20/2020, Additional history exists Influenza Vaccine (#1) 2024 0, 04/26/2010, 03/02/2009, Additional history exists DTaP,Tdap,and Td Vaccines (3 - Td or Tdap) 07/05/2025 07/05/2015, 06/11/2003, 06/11/2003 IPV Vaccines Aged Out No longer eligi ble based on patient's age to complete this topic Procedures Procedure Name Priority Date/Time Associated Diagnosis Comments US LOWER EXTREMITY VEINS RIGHT RAD - Semiurgent (Fast; most ED patients; some inpatients) 02/14/2024 2:32 PM CDT from Last 3 Months Results * US Lower Extremity Veins Right [...] and management can be found on the [employer] site. Link [email or web address] Procedure Note Santosh Flower M.D. - 02/14/2024 [...] thrombosis and management can be found on the[employer] site. [email or web address] -2049 1725 IMPRESSION: Positive for acute DVT. Thrombus is seen in the common femoral, femoral,and popliteal veins, as well as 2 peroneal veins. Isi Patiño IMG US PROCEDURES Final Resul t from Last 3 Months Insurance [employer]
--- OUTSIDE RECORDS SUMMARY | 2024-04-21 16:31 | XMS_ITS | Referral Summary ---
Author Organization [facility] Address [address] [place] [address] Care Team Providers Care Knowledge Analyst Name Role Phone Unavailable Primary Care Provider Unavailabl e Source Comments Patient records contain information from all sites at [facility]. For routine questions regarding patient records, call [phone] during business hours, M-F 8:00 AM - 5:00 PM Central Time. Record requests for emergency care only can be directed to [phone] at any time.[facility] Encounters Date Type Department Care Team Description 02/14/2024 1:48 PM CDT - 02/14/2024 3:35 PM CDT Emergency [facility] [address] [place] [phone] Isi Quintanilla, P.A. 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 Link [email or web address] Procedure Note Santosh Flower M.D. - 02/14/2024 [...] thrombosis and management can be found on the[employer] site. [email or web address] -2049 1725 IMPRESSION: Positive for acute DVT. Thrombus is seen in the common femoral, femoral,and popliteal veins, as well as 2 peroneal veins. Isi Patiño IM US PROCEDURES Final Resul t from Last 3 Months Insurance [facility]
--- OUTSIDE RECORDS SUMMARY | 2024-04-21 16:31 | XMS_ITS ---
Author Organization [facility] Address [address] [place] [address] Care Team Providers Care Interior Plant Caretaker Name Role Phone Unavailable Unavailable Unavailable Surgery Details Not on file Complications Check Surgery Details section. Procedure Estimated Blood Loss Check Surgery Details section. Procedure Findings Check Surgery Details section. Procedure Specimens Taken Check Surgery Details section.
--- OUTSIDE RECORDS SUMMARY | 2024-04-21 16:32 | XMS_ITS | Continuity of Care Document ---
Author Organization [facility] Address [address] [place] [phone] Phone Care Team Providers Care Market Maker Name Role Phone Riley Lynn DO Unavailable Unavailable Medications Medication Instructions Dosage Effective Dates (start - stop) Status Comments Cyclobenzaprine HCl Oral Tablet 5 MG TAKE ONE TABLET BY MOUTH THREE TIMES DAILY - Active RYTARY (unknown strength) take 2 capsule by oral route 3 times every day Not Available - Active entacapone 200 mg tablet take 1 tablet by oral route 4 times every day in combination with carbidopa and levodopa 200 MG - Active GABAPENTIN (unknown strength) take 1 capsule by oral route 3 times every day Not Available - Active ROSUVASTATIN CALCIUM (unknown strength) take 1 tablet by oral route every day Not Available - Active METFORMIN HCL (unknown strength) take 2 tablet by oral route 2 times every day with morning and evening meals Not Available - Active ROPINIROLE HCL (unknown strength) take 1 tablet by oral route every day Not Available - Active GLIMEPIRIDE (unknown strength) take 1 tablet by oral route every day Not Available - Active VENLAFAXINE HCL (unknown strength) take 1 tablet by oral route 3 times every day with food Not Available - Active trazodone 50 mg tablet take 1 tablet by oral route every day at bedtime 50 MG - Active DIAZEPAM (unknown strength) take 1 tablet by oral route every day Not Available - Active ELIQUIS (unknown strength) take 1 tablet by oral route 2 times every day Not Available - Active cyclobenzaprine 5 mg tablet take 1 tablet by oral route 3 times every day 5 MG - No Longer Active Procedures Procedure Date OFFICE/OUTPATIENT VISIT, NEW Advance Directives Directive Yes / No Effective Date File Name No Information Encounters Encounter Description Practice Location Reason(s) For Visit Diagnoses Date Provider Providers Copied on Encounter [facility], [address] [place], [place], [id number], [place] tel:[phone] [facility] No Information Shane Lin. [address] [facility] [place], [place], [id number] , [place]. tel:[phone] OFFICE/OUTPAT IENT VISIT, NEW [facility], [address] [place], [place], [id number], [place] tel:[phone] [facility] Widespread pain (chief complaint) Chronic pain syndromeMyalg ia, other siteRadiculop athy, cervical regionPain in right hipOther care home (current) drug therapyLow back pain, unspecified Shane Lin. [address] [place], [place], [id number] , [place]. tel:[phone] Referring Provider: Reina Garcia [address], [place], [address]. tel:[phone] Family History Family Member Type Diagnosis Age At Onset Mother Problem Arthritis Mother Problem Neck pain Payers Payer name Insurance type Covered constitution party ID Mar gonzales(s) [facility] [id number] Social History Type Description Quantity Date Captured Comments Sex Male Smoking Status No Information Chief Complaint And Reason For Visit No Information Reason For Referral Reason For Referral No Information Plan Of Treatment Date Type Action Status Goal Lipid panel. Due on due Goal FIT. Due on due Goal Update Social Hi story. Due on due Goal Tobacco Use. Due on due Goal Review Allergy L ist. Due on due Goal Height. Due on d ue Goal PHQ-9. Due on du e Goal FIT-DNA. Due on due Goal CT-Colonography. Due on due Goal Weight. Due on d ue Goal Medication Recon ciliation. Due on due Goal Unhealthy drug u se screening. Due on due Goal Zoster vaccine ( ). Due on due Goal Hepatitis C scre ening. Due on due Appointment Cristobal Lai BOOKED Future Order: Radiology Order MR Lumbar WO ([id number]), Sent on: Sent Future Order: Radiology Order MR Cervical WO ([id number]), Sent on: Sent History Of Present Illness Encounter Date Complaint History Of Prese nt Illness Comments: Elba garcia is a 68 y/o male here for initial consult regarding ongoing widespread pain, including at his posterior neck, BUE, R hip/femur, and BL feet. Carries dx of Parkinson's since 1998. Patient referred by Reina Robbins DO at [facility]. Pain began several years ago and has been progressively worsening. Pain averages 3/10 and is described as dull aches in his neck, upper back, and hands, as well as cramps in his feet, hands, and right thigh. Patient is present with his son, Aston, who contributes to today's discussion of care.C/o posterior neck pain with radiation into his BUE, including into his BL hands. Has not completed any prior injections or PT for his neck pain.C/o cramping into his BL legs and feet, worse at night. Also notes increased pain into his mid-low back. Currently ambulates with a walker. Endorses neuropathy into his BLE.C/o right hip pain. States he fractured his right femur in November 2023 and completed surgery on 12/01/2023 to repair, though continues to feel increased right hip pain. He has been completing PT since 12/04/2023 and recently started in-patient therapy. Currently managed on OTC medications, including Tylenol Extra Strength, and gabapentin 300mg with limited relief. States he has been managed on Tylenol #3, however, he has a past hx of drug abuse and his kids no longer want him to be managed on opioid medication. He was managed on Toradol with some relief, however, he developed blood clots in his right leg and has since ceased use of the medication. Now also managed on Eliquis. Cristobal is interested in pain management through [facility]. Reports no other concerns today. Widespread pain Severity level i s 3. Location of the pain is bilateral hand, right hip and bilateral feet. It occurs intermittently. Symptom is aggravated by sitting, walking, supine and changing positions. Relieving factors include stretching, heat, cold, Rx Meds and physical therapy. Pertinent negatives include diarrhea, dyspnea, fever and incontinence (urinary). Functional Status Date Functional Assessmen t No Information Instructions Date Instruction Additional Infor mation No Information Assessments Type Assessment Date No Information Patient Care Teams Name Effective Dates (start - stop) Status Members No Information
--- OUTSIDE RECORDS SUMMARY | 2024-04-21 16:32 | XMS_ITS | Clinical Summary ---
Author Organization [email or web address] Address [place], [place] [address] Care Team Providers Care Pull Socket Assembler Name Role Phone Reina Robbins DO Primary Care Provider [phone] Allergies Active Allergy Reactions Criticality Noted Date Comments Amoxicillin Rash Medium 02/20/2009 Ampicillin Rash 02/20/2009 Medications Medication Sig Dispensed Refills Start Date End Date Status diazePAM (VALIUM) 5 mg tablet Take 5 mg by mouth every 4 hours if needed. 01/31/2024 Active Eliquis 5 mg tabletIndications:de ep venous thrombosis Take 1 Tablet (5 mg) by mouth two times daily. 60 Tablet 1 03/21/2024 Active Rytary 36.25-145 mg cpER Take 3 Capsules by mouth three times daily. 03/21/2024 Active cyclobenzaprine (FLEXERIL) 5 mg tablet Take 5 mg by mouth three times daily. 03/13/2024 Active entacapone (COMTAN) 200 mg tablet Take 200 mg by mouth three times daily. 11/23/2023 Active gabapentin (NEURONTIN) 300 mg capsuleIndications:D iabetic peripheral neuropathy (HC) Take 1 Capsule (300 mg) by mouth three times daily. 270 Capsule 3 04/04/2024 Active Jardiance 25 mg tabletIndications:No n-insulin dependent type 2 diabetes mellitus (HC) Take 1 Tablet (25 mg) by mouth once daily. 90 Tablet 3 04/04/2024 Active metFORMIN (GLUCOPHAGE) 1,000 mg tabletIndications:No n-insulin dependent type 2 diabetes mellitus (HC) Take 1 Tablet (1,000 mg) by mouth two times daily with meals. 180 Tablet 3 04/04/2024 Active rosuvastatin (CRESTOR) 10 mg tabletIndications:Mi xed hyperlipidemia Take 0.5 Tablets (5 mg) by mouth at bedtime. 90 Tablet 3 04/04/2024 Active traZODone (DESYREL) 100 mg tabletIndications:In somnia, idiopathic Take 1-2 Tablets (100-200 mg) by mouth at bedtime. 90 Tablet 04/04/2024 Active tamsulosin (FLOMAX) 0.4 mg capsuleIndications:B enign prostatic hyperplasia with urinary frequency Take 1 Capsule (0.4 mg) by mouth once daily after a meal. 90 Capsule 3 04/04/2024 Active glimepiride (AMARYL) 4 mg tabletIndications:No n-insulin dependent type 2 diabetes mellitus (HC) Take 1 Tablet (4 mg) by mouth once daily with a meal. 90 Tablet 3 04/04/2024 Active Jardiance 25 mg tablet Take 25 mg by mouth once daily. 01/20/2024 4 Discontinue d(Reorder (E-cancel not sent)) gabapentin (NEURONTIN) 300 mg capsule Take 300 mg by mouth three times daily. 11/01/2023 4 Discontinue d(Reorder (E-cancel not sent)) glimepiride (AMARYL) 2 mg tablet Take by mouth. 11/03/2023 4 Discontinue d(Reorder (E-cancel not sent)) metFORMIN (GLUCOPHAGE) 1,000 mg tablet Take 1,000 mg by mouth two times daily with meals. 11/03/2023 4 Discontinue d(Reorder (E-cancel not sent)) rosuvastatin (CRESTOR) 10 mg tablet Take 5 mg by mouth at bedtime. 02/17/2024 4 Discontinue d(Reorder (E-cancel not sent)) traZODone (DESYREL) 100 mg tablet Take 1-2 Tablets by mouth at bedtime. 03/10/2024 4 Discontinue d(Reorder (E-cancel not sent)) glimepiride (AMARYL) 2 mg tabletIndications:No n-insulin dependent type 2 diabetes mellitus (HC) Take 1 Tablet (2 mg) by mouth once daily with a meal. 90 Tablet 3 04/04/2024 Discontinue d(*Medicati on adjustment) Active Problems Problem Noted Date Diagnosed Date Insomnia, idiopathic 04/04/2024 Diabetic peripheral neuropathy 04/04/2024 Benign prostatic hyperplasia with urinary freque ncy 04/04/2024 Parkinson's disease with dyskinesia 02/21/2024 Chronic pain syndrome 02/21/2024 Opioid use disorder in remission 02/21/2024 Non-insulin dependent type 2 diabetes mellitus 0 02/21/2024 Encounters Date Type Department Care Team Description 04/21/2024 Nurse Triage [facility] [address] [place] [address] Reina Robbins DO Head Injury 04/08/2024 10:20 AM CDT Office Visit [facility] [address] [place] [address] Chuck Devries MD Consult (Parkinson's disease with dyskinesia Ref: Dr. Reina Robbins /[facility] notes and labs in scans /CT Head/Brain 12/01/23 @ [facility] /CT Cervical 12/01/23 @ [facility] ) 04/08/2024 Travel 04/04/2024 8:55 AM CDT Office Visit [facility] [address] [place] [address] Reina Robbins DO Physical (68 year old male); Diabetes (6 month check); Leg Pain/problem (Continued R leg/thigh pain, currently in PT) 04/04/2024 Travel 03/31/2024 Travel 03/25/2024 Patient Outreach [facility] Care Management - Care Management Navigation/[facility] [address] [place], [place] [id number] [place] [facility] (Care Guide Community Resource Navigation/) 03/20/2024 Refill [facility] [address] [place] [address] Reina Robbins DO Refill Request (Eliquis 5mg) 02/28/2024 Orders Only [facility] Scanner 1 scan: (1-Ord) INCOMING RECORDS-DIAGNOSTIC TEST, [facility], 02/28/2024 02/28/2024 Orders Only [facility] Scanner 1 scan: (1-Ord) INCOMING RECORDS-EKG, [facility], 02/28/2024 02/28/2024 Orders Only [facility] Scanner 1 scan: (1-Ord) INCOMING RECORDS-CT, [facility], 02/28/2024 02/28/2024 Orders Only [facility] Scanner 1 scan: (1-Ord) INCOMING RECORDS-LABS, [facility], 02/28/2024 02/28/2024 Orders Only [facility] Scanner 1 scan: (1-Ord) INCOMING RECORDS-CT, [facility], 02/28/2024 02/26/2024 Telephone [facility] [address] [place] [address] Reina Robbins, DO Follow Up (physical therapy) 02/22/2024 Orders Only [facility] Scanner 1 scan: (1-Ord) INCOMING RECORDS-EKG, [facility], 02/22/2024 02/22/2024 Orders Only [facility] Scanner 1 scan: (1-Ord) INCOMING RECORDS-CT, [facility], 02/22/2024 02/22/2024 Orders Only [facility] Scanner 1 scan: (1-Ord) INCOMING RECORDS-LABS, [facility], 02/22/2024 02/21/2024 11:00 AM CDT Office Visit [facility] [address] [place] [address] Reina Robbins, DO ER Follow up ([facility]. Blood clots in right leg. Still having some swelling and pain. ) 02/21/2024 Telephone [facility] [address] [address] Chuck Devries MD Referral (Neurology) 02/21/2024 Travel 02/20/2024 Telephone [facility] [address] [place] [address] Reina Robbins, DO Appointment from Last 3 Months Immunizations Name Administration Dates Next Due DT (Age < 7 years) 06/11/2003 Influenza Virus, Unspecified 04/16/2007 Influenza, IIV3 (Age >=3 years) 04/26/2010,03/02 Influenza, IIV4 (=>6mos) MDV 03/03/2020 Influenza, Inactivated IIV3 (Age 65+ Years) Preserv Free 04/04/2024 Pneumococcal Conj 20-valent (Prevnar 20) 024 Td (Age >=7 Years) 06/11/2003 Tdap 07/05/2015 Social History Tobacco Use Types Packs/Day Years Used Date Smoking Tobacco: Never Smokeless Tobacco: Never Tobacco Cessation:Counseling Given: Yes Alcohol Use Standard Drinks/Week Comments No 0 (1 standard drink = 0.6 oz pur e alcohol) PHQ-2 Answer Date Recorded PHQ-2 TOTAL SCORE 0 04/04/2024 Social Connections Answer Date Recorded Do you often feel lonely or isolated from those around you? 0 03/31/2024 Financial Resource Strain Answer Date R ecorded Difficulty of Paying Living Expenses 3 02/21/2024 Difficulty of Paying Living Expenses Not on file 02/21/2024 Food Insecurity Answer Date Recorded Do you worry your food will run out before you are able to buy more? 1 03/31/2024 Transportation Needs Answer Date Record ed Does lack of transportation keep you from medica l appointments? 1 03/31/2024 Does lack of transportation keep you from work, meetings or getting things that you need? 1 03/31/2024 Housing Stability Answer Date Recorded What is your housing situation today? 1 03/31/2024 Sex and Gender Information Value Date Recorded Sex Assigned at Not on file Gender Identity Not on file Sexual Orientation Not on file Obstetrics History Last Filed Vital Signs Vital Sign Reading Time Taken Comments Blood Pressure 117/69 04/08/2024 10:15 AM CDT Pulse 86 04/08/2024 10:15 AM CDT Temperature 36.2 ??C (97.2 ??F) 02/20/2009 11:28 AM C DT Respiratory Rate 16 02/20/2009 12:28 PM CDT Oxygen Saturation 92% 04/08/2024 10:15 AM CDT Inhaled Oxygen Concentration - - Weight 91 kg (200 lb 9.6 oz) 04/08/2024 10:15 AM CDT Height 175.2 cm (5' 8.98) 04/04/2024 8:50 AM CD T Body Mass Index 29.64 04/04/2024 8:50 AM CDT Plan of Treatment Upcoming Encounters Date Type Department Care Team (Late st Contact Info) Description 07/07/2024 9:20 AM SKOOG OPERATOR Office Visit [facility] [address] [place] [address] Reina Robbins, DO [address] [place] [address] 07/09/2024 10:00 AM SKOOG OPERATOR Office Visit [facility] [address] [place] [address] Chuck Devries MD [address] [place], [place] [id number] Health Maintenance Due Date Last Done Comments Colonoscopy through age 75 2002 Zoster (shingles) series for age 50+ (1 of 2) 2007 COVID-19 vaccine series ( season) 2024 01/12/2022, 04/25/2021, 10/20/2020, Additional history exists BMI (ht and wt on same day) for age 18+ 04/04/2025 04/04/2024 Depression screening for age 12+ 04/04/2025 04/04/20 24 Tetanus booster 07/05/2025 07/05/2015, 06/11/2003 Lipids for age 45-75 04/04/2029 04/04/2024 Tdap Completed 07/05/2015 Hepatitis C screening for ag e 18-79 Completed 04/04/2024 Influenza for age 65+ Completed 04/04/2024 , 03/03/2020, 04/26/2010, Additional history exists Pneumococcal series for age 65+ Completed Medical Devices Implanted Type Area Flight Operations Manager Device Identifier Shelf Expiration Date Model / Serial / Lot Log [id number] - [employer] Implant Tray Retinal - 1 - Strip Silcn 1.25x4.0x125 [id number] Implanted:Qty: 1 on 02/20/2009 at [facility] Left: Eye [employer] [id number] / / [id number] Log [id number] - [employer] Implant Tray Retinal - 1 - Sleeve Silcn 1.00i.D.X2.1mm Od [id number] [employer]ian Implanted:Qty: 1 on 02/20/2009 at [facility] Left: Eye [employer] [id number]# / / [id number] Procedures Procedure Name Priority Date/Time Associated Diagnosis Comments HEMOGLOBIN A1C MONITORING (POCT) Routine 04/04/2024 9:57 AM CDT Non-insulin dependent type 2 diabetes mellitus (HC) URINE ALBUMIN TO CREATININE RATIO, RANDOM Routine 04/04/2024 9:55 AM CDT Non-insulin dependent type 2 diabetes mellitus (HC) PSA (TOTAL) ([facility]) Routine 04/04/2024 9 :55 AM CDT Prostate cancer screening MAGNESIUM Routine 04/04/2024 9:55 AM CDT Muscle cramping BASIC METABOLIC PANEL Routine 04/04/2024 9:55 AM CDT Medication monitoring encounter LIPID PANEL W REFLEX MEASURED LDL Routine 04/04/2024 9:55 AM CDT Screening for lipid disorders ANTI HCV Routine 04/04/2024 9:55 AM CDT Need for hepatitis C screening test SCAN CORRESP-EKG RESULTS 02/28/2024 12:00 AM CDT SCAN CORRESP-LABORATORY RESULTS 02/28/2024 12:00 AM CDT SCAN CORRESP-IMAGING 02/28/2024 12:00 AM CDT SCAN CORRESP-IMAGING 02/28/2024 12:00 AM CDT SCAN CORRESP-DIAGNOSTICS 02/28/2024 12:00 AM CDT SCAN CORRESP-EKG RESULTS 02/22/2024 12:00 AM CDT SCAN CORRESP-LABORATORY RESULTS 02/22/2024 12:00 AM CDT SCAN CORRESP-IMAGING 02/22/2024 12:00 AM CDT from Last 3 Months Results * (ABNORMAL) HEMOGLOBIN A1C MONITORING (POCT) (04/04/2024 9:57 AM CDT) POC HEMOGLOBIN A1C 8.0(H) <6.0 % OF TOTAL HGB [facility] Comment: Any point of care results exhibiting inconsistency with the patient's clinical status should be repeated using a different testing method. Blood BLOOD SPECIMEN / Unknown 04/04/2024 9:57 AM CDT 04/04/2024 9:59 AM CDT Reina Arcelia Itzel CRUZ CHEMISTRY Performing Organization Address City/[facility] Co de Phone Number [facility] [address] [place] [address], [facility] [address] [place] [address] * PSA (TOTAL) (QUEST) (04/04/2024 9:55 AM CDT) Pathologist [facility] PSA, TOTAL 0.47 < OR = 4.00 ng/mL [facility] Comment: The total PSA value from this assay system is standardized against the WHO standard. The test result will be approximately 20% lower when compared to the equimolar-standardized total PSA (Steph [place]). Comparison of serial PSA results should be interpreted with this fact in mind. This test was performed using the Siemens chemiluminescent method. Values obtained from different assay methods cannot be used interchangeably. PSA levels, regardless of value, should not be interpreted as absolute evidence of the presence or absence of disease. Blood BLOOD SPECIMEN / Unknown 04/04/2024 9:55 AM CDT 04/04/2024 9:56 AM CDT Safend Shaqra DO SEND OUTS [employer] [facility] [address] [place] [address], [employer] [facility] [place] [address] [place] [address] * (ABNORMAL) LIPID PANEL W REFLEX MEASURED LDL [[id number]] (04/04/2024 9:55 AM CDT) CHOLESTEROL, TOTAL 126 <200 mg/dL [facility] HDL CHOLESTEROL 38(L) > OR = 40 mg/dL [facility] TRIGLYCERIDES 162(H) <150 mg/dL [facility] LDL-CHOLESTEROL 64 mg/dL (calc) [facility] Comment: Reference range: <100 Desirable range <100 mg/dL for primary prevention; ?? <70 mg/dL for patients with CHD or diabetic patients with > or = 2 CHD risk factors. LDL-C is now calculated using the Azam-Gregg calculation, which is a validated novel method providing better accuracy than the Friedewald equation in the estimation of LDL-C. Azam SS et al. FREDERICK. 2013;310(19): 0031-9258 (http://education.[employer]/faq/QQD045) CHOL/HDLC RATIO 3.3 <5.0 (calc) [facility] NON HDL CHOLESTEROL 88 <130 mg/dL (calc) [facility] Comment: For patients with diabetes plus 1 major ASCVD risk factor, treating to a non-HDL-C goal of <100 mg/dL (LDL-C of <70 mg/dL) is considered a therapeutic option. Blood BLOOD SPECIMEN / Unknown 04/04/2024 9:55 AM CDT 04/04/2024 9:56 AM CDT Reina Robbins DO CHEMISTRY [employer] [facility] [address] [place] [address], [facility] [address] [place] [address] * ANTI HCV (04/04/2024 9:55 AM CDT) HEPATITIS C ANTIBODY NON-REACTI VE NON-REACT MABLE [employer] [facility] Comment: HCV antibody was non-reactive. There is no laboratory evidence of HCV infection. In most cases, no further action is required. However, if recent HCV exposure is suspected, a test for HCV RNA (test code 91299) is suggested. For additional information please refer to http://education.[employer]/faq/OHA37l4 (This link is being provided for informational/ educational purposes only.) Blood BLOOD SPECIMEN / Unknown 04/04/2024 9:55 AM CDT 04/04/2024 9:56 AM CDT Reina Robbins DO SEND OUTS [employer] [facility] [address] [place] [address], [facility] [address] [place] [address] * URINE ALBUMIN TO CREATININE RATIO, RANDOM (04/04/2024 9:55 AM CDT) CREATININE, RANDOM URINE 56 20 - 320 mg/dL [employer] [facility] ALBUMIN, URINE 0.2 See Note: mg/dL [employer] [facility] [facility] Comment: Reference Range: Reference Range Not established ALBUMIN/CREATININE RATIO, RANDOM URINE 4 <30 mg/g creat [facility] [facility] Comment: The ADA defines abnormalities in albumin excretion as follows: Albuminuria Category ?Result (mg/g creatinine) Normal to Mildly increased ?? <30 Moderately increased ? 30-299 Severely increased ? > OR = 300 The ADA recommends that at least two of three specimens collected within a 3-6 month period be abnormal before considering a patient to be within a diagnostic category. Urine URINE SPECIMEN / Unknown 04/04/2024 9:55 AM CDT 04/04/2024 9:56 AM CDT Reina Robbins DO URINE [employer] [employer] [facility] [address] [place] [address], [employer] [facility] [address] [place] [address] * MAGNESIUM (04/04/2024 9:55 AM CDT) MAGNESIUM 2.0 1.5 - 2.5 mg/dL [facility] Blood BLOOD SPECIMEN / Unknown 04/04/2024 9:55 AM CDT 04/04/2024 9:56 AM CDT Reina Robbins CHEMISTRY Performing Organization Address City/[facility]/ZIP Co de Phone Number [employer] [address] [address], [employer] [facility] [place] [address] [place] [address] * (ABNORMAL) BASIC METABOLIC PANEL (04/04/2024 9:55 AM CDT) GLUCOSE 148(H) 65 - 99 mg/dL [facility] Comment: ? Fasting reference interval For someone without known diabetes, a glucose value >125 mg/dL indicates that they may have diabetes and this should be confirmed with a follow-up test. UREA NITROGEN (BUN) 10 7 - 25 mg/dL [facility] CREATININE 0.67(L) 0.70 - 1.35 mg/dL [facility] EGFR 103 > OR = 60 mL/min/1.7 3m2 [facility] BUN/CREATININE RATIO 15 6 - 22 (calc) [facility] SODIUM 139 135 - 146 mmol/L [facility] POTASSIUM 4.5 3.5 - 5.3 mmol/L [facility] CHLORIDE 107 98 - 110 mmol/L [facility] CARBON DIOXIDE 23 20 - 32 mmol/L [facility] ELECTROLYTE BALANCE 9 7 - 17 mmol/L (calc) [facility] CALCIUM 9.0 8.6 - 10.3 mg/dL [facility] Blood BLOOD SPECIMEN / Unknown 04/04/2024 9:55 AM CDT 04/04/2024 9:56 AM CDT Reina Robbins DO CHEMISTRY [facility] [address] [place] [address], [facility] [address] [place] [address] * SCAN CORRESP-LABORATORY RESULTS (02/28/2024 12:00 AM CDT) Only the most recent of2 resultswithin the time period is included. Scanner OTHER * SCAN CORRESP-EKG RESULTS (02/28/2024 12:00 AM CDT) Only the most recent of2 resultswithin the time period is included. Scanner OTHER * SCAN CORRESP-DIAGNOSTICS (02/28/2024 12:00 AM CDT) Scanner OTHER * SCAN CORRESP-IMAGING (02/28/2024 12:00 AM CDT) Only the most recent of3 resultswithin the time period is included. Anatomical Region Laterality Modality Other Scanner OTHER from Last 3 Months Advance Directives Documents on File Type Date Recorded Patient Vp Production Expl anation Healthcare Directive 02/21/2024 2:35 PM He althcare Directive * Full Code (Latest Code Status on File) Date Activated Date Inactivated Comments 02/20/2009 9:05 AM 02/20/2009 2:42 PM Care Teams Pull Socket Assembler Relationship Specialty Start Date End Date Reina Robbins [place] [place] [place] [address] PCP - General Family Practice 02/21/24
== END 2024-04-21 16:31 | disposition home or self-care (01) ==
LOC: ED 16:30
PROVIDERS: Emergency Provider Emergency Medicine Emergency Medical Services; PCP Family Medicine; Visit Provider Emergency Medicine Emergency Medical Services
DX: S09.90XA Unspecified injury of head, initial encounter (principal); W18.2XXA Fall in (into) shower or empty bathtub, initial encounter
CPT/HCPCS: 70450; 99283; 99284

== ENCOUNTER 2024-08-11 21:25 | Emergency (ER) | payer OTHER, SELFPAY ==
--- OUTSIDE RECORDS SUMMARY | 2024-08-11 21:28 | XMS_ITS | Clinical Summary ---
Author Organization [facility] Address [address] [place] [address] Care Team Providers Care Associate Professor Of Theology Name Role Phone Unavailable Primary Care Provider Unavailabl e Source Comments Patient records contain information from all sites at [facility]. For routine questions regarding patient records, call [phone] during business hours, M-F 8:00 AM - 5:00 PM Central Time. 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 Gender Identity Not on file Sexual Orientation Not on file Last Filed Vital Signs Vital Sign Reading Time Taken Comments Blood Pressure 147/83 02/14/2024 3:15 PM CDT Pulse 65 02/14/2024 3:30 PM CDT Temperature 36.3 C (97.3 F) 02/14/2024 1:54 PM CDT Respiratory Rate 18 02/14/2024 1:54 PM CDT Oxygen Saturation 97% 02/14/2024 3:30 PM CDT Inhaled Oxygen Concentration - - Weight 93 kg (205 lb 0.4 oz) 02/14/2024 1:54 PM CDT Height - - Body Mass Index - - Plan of Treatment Health Maintenance Due Date Last Done Comments CT Colonography 1957 Cologuard 1957 Creatinine Level (Kidney Function Test) 1957 Diabetic Office Visit with Foot Exam 1957 Dilated Eye Exam 1957 FIT 1957 Hemoglobin A1C 1957 Hepatitis B Screening 1957 Hepatitis C Screening 1957 Lipid (Cholesterol) Screening 1957 Office Visit for Blood Pressure Check / Re-check 1957 Urine Albumin 1957 Pneumococcal vaccine (50+ years) (1 of 2 - PCV) 1976 Zoster Vaccines (1 of 2) 2007 Hepatitis B Vaccines (1 of 3 - Risk 3-dose series) 2017 COVID-19 Vaccine ( - season) 2024 01/12/2022, 04/25/2021, 10/20/2020, Additional history exists Depression Screening (Annual PHQ-2) 06/11/2024 Fall Risk Screen (Annual) 06/11/2024 DTaP,Tdap,and Td Vaccines (3 - Td or Tdap) 07/05/2025 07/05/2015, 06/11/2003, 06/11/2003 Colonoscopy 01/01/2033 01/01/2023 Colorectal Cancer Screening 01/01/2033 Influenza Vaccine Completed 04/04/2024, , 04/26/2010, Additional history exists IPV Vaccines Aged Out No longer eligi ble based on patient's age to complete this topic Insurance [facility] [id number] [id number]
--- OUTSIDE RECORDS SUMMARY | 2024-08-11 21:28 | XMS_ITS | Continuity of Care Document ---
Author Organization [facility] Address [address] [facility] [place] [address] Phone Care Team Providers Care Inspector Bicycle Name Role Phone Jose Alfredo ACOSTA, Tang Unavailable Unavailabl e Allergies, Adverse Reactions, Alerts Substance Reaction Status Criticality No Known Allergies Active No Inform ation Medications Medication Instructions Dosage Effective Dates (start [...] times every day Not Available - Active Procedures Procedure Date OFFICE/OUTPATIENT VISIT, EST OFFICE/OUTPATIENT VISIT, NEW Advance Directives Directive Yes / No Effective Date File Name No Information Encounters Encounter Description Practice Location Reason(s) For Visit Diagnoses Date Provider Providers Copied on Encounter OFFICE/OUTPAT IENT VISIT, EST [facility], [address], [place], [id number], [place] tel:[phone] [facility] Neck Pain (chief complaint) Chronic pain syndromeRadic ulopathy, cervical regionMyalgia , other sitePain in right hipOther senior living (current) drug therapyLow back pain, unspecified 4 Jose Alfredo Beckwith. [address], [address], [place], [place], [id number], [place]. tel:[phone] Referring Provider: Reina Garcia [facility], [place], [address]. tel:[phone] [facility], [address], [place], [id number], [place] tel:[phone] [facility] [place] No Information 4 Shane Lin. [address] [place], [place], [id number], [place]. tel:[phone] OFFICE/OUTPAT IENT VISIT, NEW [facility], [address], [place], [id number], [place] tel:[phone] [facility] Widespread pain (chief complaint) Chronic pain syndromeMyalg ia, other siteRadiculop athy, cervical regionPain in right hipOther senior living (current) drug therapyLow back pain, unspecified 4 Shane Lin. [address] [place], [place], [id number], [place]. tel:[phone] Referring Provider: Curtis FraireAddFleet [facility], [place], [address]. tel:[phone] Family History Family Member Type Diagnosis Age At Onset Mother Problem Arthritis Mother Problem Neck pain Payers Payer name Insurance type Covered libertarian ID Mar gonzales(s) [employer] CI [id number] Social History Type Description Quantity Date Captured Comments Alcohol Use Details Unknown Caffeine Use Details Unknown Tobacco Use Status No Information Smoking Status No Information Sex Male Chief Complaint And Reason For Visit From encounter dated 04/29/2024 09:00'. Neck Pain (chief complaint). Description: The severity of the problem is 5/10. The problem has not changed. The client describes the pain as Aching and Sharp. Aggravating factors include bending backwards and reaching overhead. 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 Additional information:. Patient reports that pain affects their daily activities including self care. Reason For Referral Reason For Referral No Information Plan Of Treatment Date Type Action Status Goal Update Social Hi story. Due on due Goal Hepatitis C scre ening. Due on due Goal PHQ-9. Due on du e Goal Zoster vaccine ( ). Due on due Goal Height. Due on d ue Goal CT-Colonography. Due on due Goal Unhealthy drug u se screening. Due on due Goal FIT-DNA. Due on due Goal Lipid panel. Due on due Goal Tobacco Use. Due on due Goal FIT. Due on due Goal Medication Recon ciliation. Due on due Goal Weight. Due on d ue Goal Review Allergy L ist. Due on due Goal Lipid panel. Due on due Goal [...] Due on due Goal Zoster vaccine ( 1st). Due on due Goal Hepatitis C scre ening. Due on due Future Order: Radiology Order MR Lumbar WO ([id number]), Sent on: Sent Future Order: Radiology Order MR Cervical WO ([id number]), Sent on: Sent History Of Present Illness Encounter Date Complaint History Of Prese nt Illness Neck Pain The severity of the problem is 5/10. The problem has not changed. The client describes the pain as Aching and Sharp. Aggravating factors include bending backwards and reaching overhead. 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 Additional information:. Patient reports that pain affects their daily activities including self care. Comments: Elba garcia is a 68 y/o male here for initial follow up regarding ongoing widespread pain, including at his posterior neck, BUE, R hip/femur, and BL feet. Pain has been stable.Hasn't been taking extra strength tylenol which has been helpful. Patient notes that his worst area of pain is in his neck. though all of his pain is manageable at this time. All pain is axial. No radicular type pains down the BUE or BLE. No extremity numbness/weakness or tingling. No bowel or bladder incontinence. Currently managed on OTC medications, including Tylenol Extra Strength, and gabapentin 300mg with limited relief. Also managed on Eliquis. No other concerns today. Comments: Elba garcia is a 68 y/o male here for initial consult regarding ongoing widespread pain, including at his posterior neck, BUE, R hip/femur, and BL feet. Carries dx of Parkinson's since 1998. Patient referred by Reina Robbins DO at [facility]. Pain began several years ago and has [...] Cristobal is interested in pain management through [facility]. Reports no other concerns today. Widespread pain [...] mation No Information Assessments Type Assessment Date assessment Chronic pain syndrome impression [place] Judicial criminal backgrounds check completed with no outstanding results or concerning convictions. This is my first evaluation of the patient. Some records from [facility] and [facility]. Cristobal is a 68 y/o male here for follow up and review of MRI of the cervical and lumbar spine. assessment Radiculopathy, cervical region N impression Ongoing posterior ne ck pain with radiation into his BUE, including into his BL hands. Has not completed any prior injections or PT for his neck pain. Today he has no radicular complaints and MRI reveals no nerve root impingement. Pain is manageable with OTC medications. Cervical MRI on 03/27/2024. C2-3: No central or foraminal stenosis.C3-4: Left asymmetric uncovertebral spurring. No central stenosis. Mild left foraminal stenosis.C4-5: Left asymmetric uncovertebral spurring. No central stenosis. Mild to moderate left foraminal stenosis.C5-6: Mild disc bulge and uncovertebral spurring. No central stenosis. Mild bilateral foraminal stenosis.C6-7: Mild disc bulge and left asymmetric uncovertebral spurring, normal facet joints. No central stenosis. Mild left foraminal stenosis.C7-T1: Mild posterolateral endplate spurring, mild bilateral facet degeneration. No central or foraminal stenosis.T1-2 to T4-5: Mild spondylosis without stenosis or impingement.CONCLUSION:1. Multilevel mild to moderate foraminal stenosis without obvious impingement.2. Mild disc bulging with widely patent spinal canal.3. No acute fracture, infection, or neoplasm. assessment Myalgia, other site impression Ongoing cramping into his BL leg s and feet, worse at night assessment Pain in right hip impression Ongoing right hip pa in. States he fractured his right femur in November 2023 and completed surgery on 12/01/2023 to repair, though continues to feel increased right hip pain. 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 States he has been managed on Tylenol #3, last filled on 03/10/2024, however, he has a past hx of drug abuse and his kids no longer want him to be managed on opioid medication. He was managed on Toradol with some relief, however, he developed blood clots in his right leg and has since ceased use of the medication. Now also managed on Eliquis.Per intake, patient reports a past hx of opioid abuse, for which he sought treatment for in 2001 assessment Low back pain, unspecified impression Ongoing mid-low back pain. Currently ambulates with a walker. Endorses neuropathy into his BLE. No radicular type pains. Pain is entirely axial. Lumbar MRI on 03/27/2024L5-S1: Mild disc degeneration posteriorly, normal facet joints. No central or foraminal stenosis.L1-2 to L4-5: Grossly normal disc and facet joints. No central or foraminal stenosis.T12-L1: Minimal left asymmetric disc bulge. No central or foraminal stenosis. Mental Status Date Cognitive Assessment Orientation - [place] ed to time, place, person, situation. Patient Care Teams Name Effective Dates (start - stop) Status Members No Information
--- OUTSIDE RECORDS SUMMARY | 2024-08-11 21:29 | XMS_ITS | Clinical Summary ---
Author Organization [employer] Address [address] [place] [address] Care Team Providers Care Sectional Belt Mold Assembler Name Role Phone Reina Robbins DO Primary Care Provider [phone] Allergies Active Allergy Reactions Criticality Noted Date Comments Amoxicillin Rash Medium 02/20/2009 Ampicillin Rash 02/20/2009 Medications cyclobenzaprine (FLEXERIL) 5 mg tablet Take 5 mg by mouth three times daily. 03/13/20 24 Active entacapone (COMTAN) 200 mg tablet Take 200 mg by mouth three times daily. 11/23/19 24 Active gabapentin (NEURONTIN) 300 mg capsuleIndication s:Diabetic peripheral neuropathy (HC) Take 1 Capsule (300 mg) by mouth three times daily. 270 Capsule 3 04/04/20 24 Active Jardiance 25 mg tabletIndications :Non-insulin dependent type 2 diabetes mellitus (HC) Take 1 Tablet (25 mg) by mouth once daily. 90 Tablet 3 04/04/20 24 Active metFORMIN (GLUCOPHAGE) 1,000 mg tabletIndications :Non-insulin dependent type 2 diabetes mellitus (HC) Take 1 Tablet (1,000 mg) by mouth two times daily with meals. 180 Tablet 3 04/04/20 24 Active rosuvastatin (CRESTOR) 10 mg tabletIndications :Mixed hyperlipidemia Take 0.5 Tablets (5 mg) by mouth at bedtime. 90 Tablet 3 04/04/20 24 Active tamsulosin (FLOMAX) 0.4 mg capsuleIndication s:Benign prostatic hyperplasia with urinary frequency Take 1 Capsule (0.4 mg) by mouth once daily after a meal. 90 Capsule 3 04/04/20 24 Active glimepiride (AMARYL) 4 mg tabletIndications :Non-insulin dependent type 2 diabetes mellitus (HC) Take 1 Tablet (4 mg) by mouth once daily with a meal. 90 Tablet 3 04/04/20 24 Active diazePAM (VALIUM) 5 mg tabletIndications :Generalized anxiety disorder with panic attacks Take 1 Tablet (5 mg) by mouth once daily if needed for Anxiety. 30 Tablet 05/16/20 24 Active venlafaxine (EFFEXOR) 75 mg tablet Take 2 tablets by mouth every morning and 1 tablet every evening* Active carbidopa-levodop a controlled release, 50-200 mg, (SINEMET CR 50-200) 50-200 mg tabletIndications :Parkinson's disease without dyskinesia or fluctuating manifestations (HC) Take 2 Tablets by mouth three times daily. 540 Tablet 3 07/09/19 25 Active traZODone (DESYREL) 100 mg tabletIndications :Insomnia, idiopathic TAKE ONE OR TWO TABLETS BY MOUTH DAILY AT BEDTIME 90 Tablet 3 07/29/19 25 Active traZODone (DESYREL) 100 mg tabletIndications :Insomnia, idiopathic Take 1-2 Tablets (100-200 mg) by mouth at bedtime. 90 Tablet 04/04/20 24 025 Discontinued traZODone (DESYREL) 100 mg tabletIndications :Insomnia, idiopathic TAKE ONE OR TWO TABLETS BY MOUTH DAILY AT BEDTIME 90 Tablet 07/29/19 25 025 Discontinued(Re order (E-cancel not sent)) Active Problems Problem Noted Date Diagnosed Date Insomnia, idiopathic 04/04/2024 Diabetic peripheral neuropathy 04/04/2024 Benign prostatic hyperplasia with urinary freque ncy 04/04/2024 Parkinson's disease with dyskinesia 02/21/2024 Chronic pain syndrome 02/21/2024 Opioid use disorder in remission 02/21/2024 Non-insulin dependent type 2 diabetes mellitus 0 02/21/2024 Encounters Date Type Department Care Team Description 08/11/[address] [facility] [address] [place] [address] Reina Robbins, DO Constipation 07/27/[address] [facility] [address] [place] [address] Reina Robbins, DO Refill Request (Trazodone) 07/23/[address] [facility] [address] [place] [address] Reina Robbins DO Referral for Occupational therapy at [facility] 07/23/[address] [facility] [address] [place] [address] Reina Robbins ArceliaDO Follow Up (MIMA ) 07/22/[address] [facility] [address] [facility] [place] [address] Reina Robbins DO Outside Order (/work order ) 07/09/2024 10:00 AM GRAVITY METER OPERATOR Office Visit [facility] [place] [facility] [address] [place] [address] Chuck Devries MD Follow Up (Follow up Parkinson's disease-wants to discuss switching to Sinemet ) 07/09/[address] [facility] [address] [place] [address] Reina Robbins DO Referral (OCCUPATIONAL THERAPY ORDERS) 07/08/2024 1:45 PM GRAVITY METER OPERATOR Ancillary Procedure [facility] [address] [place] [address] 07/08/2024 Travel 07/07/2024 9:20 AM GRAVITY METER OPERATOR Office Visit [address] [address] Reina Robbins DO Diabetes (3 month check); Toe Pain/problem (Stubbed L pinky toe); Leg Pain/problem (R thigh pain since hip fx) 07/07/2024 Travel 07/03/[address] [facility] [address] [place] [address] Reina Robbins DO Refill Request (Rytary) 06/10/[address] [facility] [address] [facility] [place] [address] Reina Robbins Arcelia DO Referral (Physical therapy) 05/15/[address] [facility] [address] [facility] [place] [address] Reina Robbins, DO Refill Request (Diazepam) from Last 3 Months Immunizations Name Administration [...] is your housing situation today? 1 03/31/2024 Utilities Answer Date Recorded Do you have trouble paying f or utilities (for example, heat, electricity, water, phone)? 1 03/31/2024 Sex and Gender Information Value Date Recorded Sex Assigned at Not on file Legal Sex Male 7:40 AM GRAVITY METER OPERATOR Gender Identity Not on file Sexual Orientation Not on file Obstetrics History Last Filed Vital Signs Vital Sign Reading Time Taken Comments Blood Pressure 120/74 07/09/2024 10:03 AM GRAVITY METER OPERATOR Pulse 74 07/09/2024 10:03 AM GRAVITY METER OPERATOR Temperature 36.2 C (97.2 F) 02/20/2009 11:28 AM CDT Respiratory Rate 16 02/20/2009 12:28 PM CDT Oxygen Saturation 95% 07/09/2024 10:03 AM GRAVITY METER OPERATOR Inhaled Oxygen Concentration - - Weight 95.8 kg (211 lb 4.8 oz) 07/09/2024 10:03 AM GRAVITY METER OPERATOR Height 175.2 cm (5' 8.98) 04/04/2024 8:50 AM CD T Body Mass Index 31.23 04/04/2024 8:50 AM CDT Plan of Treatment Upcoming Encounters Date Type Department Care Team (Late st Contact Info) Description 10/07/2024 7:40 AM CDT Office Visit [facility] [address] [place], [place] [id number] Reina Robbins, DO [address] [place] [address] Health Maintenance Due Date Last Done Comments Zoster (shingles) series for age 50+ (1 of 2) 2007 RSV vaccine for adults or (1 - Risk 60-74 years 1-dose series) 2017 Medicare Wellness for age 65+ 2022 COVID-19 vaccine series ( season) 2024 01/12/2022, 04/25/2021, 10/20/2020, Additional history exists BMI (ht and wt on same day) for age 18+ 04/04/2025 04/04/2024 Depression screening for age 12+ 04/04/2025 04/04/20 24 Tetanus booster 07/05/2025 07/05/2015, 06/11/2003 Lipids for age 45-75 04/04/2029 04/04/2024 Colonoscopy through age 75 01/01/2033 01/01/2023 Tdap Completed 07/05/2015 Hepatitis C screening for ag e 18-79 Completed 04/04/2024 Influenza for age 65+ Completed 04/04/2024 , 03/03/2020, 04/26/2010, Additional history exists Pneumococcal series for age 50+ Completed Medical Devices Implanted Type [employer] Ware[employer] Associate Device Identifier Shelf Expiration Date Model / Serial / Lot Log [id number] - [employer] Implant Tray Retinal - 1 - Strip Silcn 1.25x4.0x125 [id number] Implanted:Qty: 1 on 02/20/2009 at [facility] Left: Eye [employer] [id number]# / / [id number] Log [id number] - [employer] Implant Tray Retinal - 1 - Sleeve Silcn 1.00i.D.X2.1mm Od [id number] [employer]ian Implanted:Qty: 1 on 02/20/2009 at [facility] Left: Eye [employer] [id number]# / / [id number] Procedures Procedure Name Priority Date/Time Associated Diagnosis Comments US VENOUS LOWER EXTREMITY RIGHT MIMA 07/08/2024 1:53 PM GRAVITY METER OPERATOR Right thigh pain HEMOGLOBIN A1C MONITORING (POCT) Routine 07/07/2024 9:15 AM GRAVITY METER OPERATOR Non-insulin dependent type 2 diabetes mellitus (HC) ANTI HCV Routine 04/04/2024 9:55 AM CDT Need for hepatitis C screening test LIPID PANEL W REFLEX MEASURED LDL Routine 04/04/2024 9:55 AM CDT Screening for lipid disorders SCAN-COLONOSCOPY 01/01/2023 12:0 0 AM CDT from Last 3 Months or Most Recently Relevant to Health Maintenance Results * US VENOUS LOWER EXTREMITY RIGHT (07/08/2024 1:53 PM GRAVITY METER OPERATOR) Anatomical Region Laterality Modality LEGS, LEG R, Abdomen Ultrasound 07/08/2024 1:55 PM GRAVITY METER OPERATOR Impressions 07/08/2024 1:55 PM GRAVITY METER OPERATOR Normal venous ultrasound exam. No evidence of deep vein thrombosis within the right lower extremity. Dictated by Willian Meza MD @ 07/08/2024 1:55:14 PM (Electronically Signed) Narrative 07/08/2024 1:55 PM GRAVITY METER OPERATOR For Patients: As a result of the Century Cures Act, medical imaging exams and procedure reports are released immediately into your electronic medical record. You may view this report before your referring provider. If you have questions, please contact your health care provider. INDICATION: Right thigh pain COMPARISON: None. TECHNIQUE: A compression venous ultrasound exam was performed of the right lower extremity using liu-scale imaging, color Doppler and spectral Doppler analysis. FINDINGS: Sonographic imaging of the right lower extremity demonstrates normal compressibility and color Doppler venous blood flow within the common femoral vein, deep femoral vein, and the proximal greater saphenous vein. Within the thigh, the femoral vein is patent and compressible. At a lower level, the popliteal and posterior tibial veins also show normal compressibility and color Doppler venous blood flow. Limited imaging of the contralateral groin demonstrates a normal spectral waveform and color Doppler venous blood flow within the left common femoral vein. Procedure Note Willian Meza MD - 07/08/2024 For Patients: As a result of the Cures Act, medical imagingexams and procedure reports are released immediately into your electronicmedical record. You may view this report before your referring provider.If you have questions, please contact your health care provider. INDICATION: Right thigh pain COMPARISON: None. TECHNIQUE: A compression venous ultrasound exam was performed of the right lowerextremity using liu-scale imaging, color Doppler and spectral Doppleranalysis. FINDINGS: Sonographic imaging of the right lower extremity demonstrates normalcompressibility and color Doppler venous blood flow within the commonfemoral vein, deep femoral vein, and the proximal greater saphenous vein.Within the thigh, the femoral vein is patent and compressible. At a lowerlevel, the popliteal and posterior tibial veins also show normalcompressibility and color Doppler venous blood flow. Limited imaging of the contralateral groin demonstrates a normal spectralwaveform and color Doppler venous blood flow within the left commonfemoral vein. IMPRESSION: Normal venous ultrasound exam. No evidence of deep vein thrombosis withinthe right lower extremity. Dictated by Willian Meza MD @ 07/08/2024 1:55:14 PM (Electronically Signed) us Reina Robbins DO US Final Result * (ABNORMAL) HEMOGLOBIN A1C MONITORING (POCT) (07/07/2024 9:15 AM GRAVITY METER OPERATOR) POC HEMOGLOBIN A1C 8.3(H) <6.0 % OF TOTAL HGB [facility] Comment: Any point of care results exhibiting inconsistency with the patient's clinical status should be repeated using a different testing method. Blood BLOOD SPECIMEN / Unknown 07/07/2024 9:15 AM GRAVITY METER OPERATOR 07/07/2024 9:16 AM GRAVITY METER OPERATOR us Reina Arcelia Winstongreta CHEMISTRY Final Result [facility] [address] [place] [address], [facility] [address] [place] [address] * (ABNORMAL) LIPID PANEL W REFLEX MEASURED LDL [[id number]] (04/04/2024 9:55 AM CDT) CHOLESTEROL, TOTAL 126 <200 mg/dL [facility] HDL CHOLESTEROL 38(L) > OR = 40 mg/dL [facility] TRIGLYCERIDES 162(H) <150 mg/dL [facility] LDL-CHOLESTEROL 64 mg/dL (calc) [facility] Comment: Reference range: <100 Desirable range <100 mg/dL for primary prevention; <70 mg/dL for patients with CHD or diabetic patients with > or = 2 CHD risk factors. LDL-C is now calculated using the Azam-Gregg calculation, which is a validated novel method providing better accuracy than the Friedewald equation in the estimation of LDL-C. Azam LIM et al. FREDERICK. 2013;310(19): 8594-5836 (http://education.Zedmo.Magzter/faq/JLS252) CHOL/HDLC RATIO 3.3 <5.0 (calc) [facility] NON HDL CHOLESTEROL 88 <130 mg/dL (calc) [facility] Comment: For patients with diabetes plus 1 major ASCVD risk factor, treating to a non-HDL-C goal of <100 mg/dL (LDL-C of <70 mg/dL) is considered a therapeutic option. Blood BLOOD SPECIMEN / Unknown 04/04/2024 9:55 AM CDT 04/04/2024 9:56 AM CDT Reina Arcelia Robbins DO CHEMISTRY Final Result Performing Organization Address [facility] Co de Phone Number [facility] [address] [place] [address], [place] [phone] [facility] [address] [place] [address] * ANTI HCV (04/04/2024 9:55 AM CDT) HEPATITIS C ANTIBODY NON-REACTI VE NON-REACT MABLE [facility] Comment: HCV antibody was non-reactive. There is no laboratory evidence of HCV infection. In most cases, no further action is required. However, if recent HCV exposure is suspected, a test for HCV RNA (test code 08166) is suggested. For additional information please refer to http://education.AdECN/faq/QQB02f0 (This link is being provided for informational/ educational purposes only.) Blood BLOOD SPECIMEN / Unknown 04/04/2024 9:55 AM CDT 04/04/2024 9:56 AM CDT Reina Monteroantonina DO SEND OUTS Final Result Performing Organization Address [facility] Co de Phone Number [facility] [address] [place] [address], [facility] [address] [place] [address] * SCAN-COLONOSCOPY (01/01/2023 12:00 AM CDT) Scanner OTHER Final Result from Last 3 Months or Most Recently Relevant to Health Maintenance Insurance [id number] MEDICARE ADVANTAGE [place] [id number] Advance Directives Documents on File Type Date Recorded Patient Technical Support Consultant Expl anation Healthcare Directive 02/21/2024 2:35 PM He althcare Directive * Full Code (Latest Code Status on File) Date Activated Date Inactivated Comments 02/20/2009 9:05 AM 02/20/2009 2:42 PM Care Teams Sectional Belt Mold Assembler Relationship Specialty Start Date End Date Reina Robbins DO [address] [place] [address] PCP - General Family Practice 02/21/24
[2024-08-11 21:44] VITALS: BP 136/75; PULSE 100; RESP 16; TEMP 37; O2SAT 94; BMI 30.6
--- NOTE | 2024-08-11 21:58 | ED.ABDPAIN ---
HPI - Abdominal Pain General Chief Complaint: Abdominal Pain Stated Complaint: Bowel obstruction Time Seen by Provider: 08/11/24 21:48 History of Present Illness HPI narrative: This 69-year-old male comes in reporting pain in his lower abdomen. He states that he has not had a good bowel movement for a few days and has taken prune juice and fluids and did do a suppository. He has not been able to pass any stool but has been passing gas. He also states that he has not been able to pass any urine all day today. Bladder scan initially shows 400 mL of urine in his bladder. The patient states that he has had urinary retention in the past but otherwise passes urine normally. Related Data Home Medications ?Medication ?Instructions ?Recorded ?Confirmed empagliflozin 25 mg tablet 25 mg PO DAILY 01/31/22 01/23/24 (Jardiance) entacapone 200 mg tablet 200 mg PO TID 01/31/22 01/23/24 gabapentin 300 mg capsule 300 mg PO TID 01/31/22 01/23/24 metformin 1,000 mg tablet 1,000 mg PO BIDWM 01/31/22 01/23/24 trazodone 100 mg tablet 200 mg PO HS 01/31/22 01/23/24 carbidopa ER 36.25 mg-levodopa 145 3 cap PO TID 10/11/23 01/23/24 mg capsule,extended release (Rytary) rosuvastatin 10 mg tablet 10 mg PO HS 10/11/23 01/23/24 venlafaxine 75 mg tablet 75 - 150 mg PO BID 10/11/23 01/23/24 glimepiride 2 mg tablet 2 mg PO BID 12/01/23 01/23/24 ketorolac 10 mg tablet mg PO 01/23/24 01/23/24 apixaban 5 mg tablet (Eliquis) 5 mg PO BID 04/21/24 04/21/24 Previous Rx's ?Medication ?Instructions ?Recorded acetaminophen 500 mg capsule 500 - 1,000 mg (1 - 2 x 500 mg) PO 12/04/23 Q6H PRN #100 caps diazepam 5 mg tablet 5 mg PO DAILY PRN #5 tabs 12/04/23 Allergies Allergy/AdvReac Type Severity Reaction Status Date / Time amoxicillin Allergy Intermediate Verified 01/23/24 11:20 ampicillin Allergy Intermediate Verified 01/23/24 11:20 Review of Systems Status of ROS Reports: 10 or more systems reviewed and unremarkable except as noted in History and below Narrative Constitutional: No fevers, no weight gain or loss. Eyes: No discharge. No vision changes. HENT: No congestion, no sore throat, no ear pain. Cardiovascular: No chest pain, no palpitations. Respiratory: No shortness of breath, no wheezes, no cough. Gastrointestinal: No vomiting, no diarrhea. Lower abdominal pain with decreased appetite. Genitourinary: Urinary retention. Musculoskeletal: Normal range of motion. Skin: No rashes, no pruritis. Neurological: No dizziness, weakness, sensory change, speech change. Endo/Heme/Allergies: No bruising or bleeding. No polydipsia. Pysch: no suicidality, no anxiety, no insomnia. All other systems reviewed and are negative. [facility] Medical History (Updated 08/11/24 @ 22:59 by Riley Jay MD) Parkinson's disease ?G20.A1 - Parkinson's disease without dyskinesia, without mention of fluctuations (ICD-10) Depression ?F32.A - Depression, unspecified (ICD-10) Cerebrovascular accident (CVA) ?I63.9 - Cerebral infarction, unspecified (ICD-10) Type 2 diabetes mellitus ?E11.9 - Type 2 diabetes mellitus without complications (ICD-10) Chest wall pain ?R07.89 - Other chest pain (ICD-10) Health care directive on file ?Z78.9 - Other specified health status (ICD-10) Closed left hip fracture ?S72.002A - Fracture of unspecified part of neck of left femur, initial encounter for closed fracture (ICD-10) Detached retina ?H33.20 - Serous retinal detachment, unspecified eye (ICD-10) Anxiety ?F41.9 - Anxiety disorder, unspecified (ICD-10) Depression ?F32.A - Depression, unspecified (ICD-10) Arthritis ?M19.90 - Unspecified osteoarthritis, unspecified site (ICD-10) Neck pain ?M54.2 - Cervicalgia (ICD-10) Stroke ?I63.9 - Cerebral infarction, unspecified (ICD-10) Diabetes ?E11.9 - Type 2 diabetes mellitus without complications (ICD-10) Parkinsons ?G20 - Parkinson's disease (ICD-10) Surgical History (Updated 01/23/24 @ 11:32 by Dalila Spivey ~ SENIOR MARKETING COORDINATOR, [facility]) Status post fracture of femur (12/01/23) ?Z87.81 - Personal history of (healed) traumatic fracture (ICD-10) History of detached retina repair ?Z98.890 - Other specified postprocedural states (ICD-10) ?Z86.69 - Personal history of other diseases of the nervous system and sense organs (ICD-10) H/O shoulder surgery (~2007) ?Z98.890 - Other specified postprocedural states (ICD-10) History of tonsillectomy ?Z90.89 - Acquired absence of other organs (ICD-10) History of appendectomy ?Z90.49 - Acquired absence of other specified parts of digestive tract (ICD-10) S/P cataract surgery ?Z98.49 - Cataract extraction status, unspecified eye (ICD-10) Family History Other Diabetes Skin cancer Stroke Social History What is your current living situation?: I presently have a place to live Problems where you live: no known problems Problems where you live details: N/A In the past 12 months, utilities in danger of being shut off: no In past 12 months, lack of transportation kept you from medical appts, meetings, work, or getting things needed for daily living: no In the past 12 mos, have been you worried that your food would run out before you had money to buy more?: never true In the past 12 mos, the food you bought just didn't last and you didn't have money to buy more?: never true Highest level of school completed/degree received: Bachelor's degree Smoking Status: Never smoker Do you use any of these nicotine containing products: None Second hand tobacco smoke exposure: No How often do you have a drink containing alcohol: never How often do you have six or more drinks on one occasion: Never AUDIT-C Alcohol total score: 0 Non-prescribed substance use: denies use Caffeine: No How often does anyone, including family, friends and others, physically hurt you: never How often does anyone, including family, friends and others, insult or talk down to you: never How often does anyone, including family, friends and others, threaten you with harm: never How often does anyone, including family, friends and others, scream or curse at you: never service: No Exam Narrative: Exam Narrative: Constitutional: Well-developed, well-nourished, no acute distress. HEENT: Normocephalic, atraumatic. Neck: Normal range of motion. Nontender. Supple. Heart: Regular. No murmurs. Normal rate. Intact distal pulses. Lungs: Clear to auscultation. No chest discomfort. No wheezes, rhonchi, or rales. Abdomen: Normal bowel sounds. No rebound tenderness. Tenderness across the lower abdomen. Genitalia: Deferred. Back: No midline tenderness. Normal range of motion. Extremities: Normal range of motion. No injury. Skin: Intact. No rash. Warm. No erythema or pallor. Neurologic: No altered sensation. No weakness. Alert and oriented. Psychiatric: No suicidality. No anxiety or depression. No insomnia. Nursing notes and vitals signs are reviewed. Const: Vital Signs, click to edit/add: Vital Signs - 24 hr 08/11/24 21:44 Temperature 98.6 F Pulse Rate [Pulse Oximeter] 100 Respiratory Rate 16 Blood Pressure [Le ft Upper Arm] 136/75 Pulse Oximetry 94 Oxygen Delivery Me thod Room Air Course Vital Signs Vital signs: Initial Vital Signs Temperature 98.6 F 08/11/24 21:44 Temperature Source Temporal Artery Scan 08/11/24 21:44 Pulse Rate 100 08/11/24 21:44 Respiratory Rate 16 08/11/24 21:44 Blood Pressure 136/75 08/11/24 21:44 Blood Pressure Mean 95 08/11/24 21:44 Blood Pressure Position Sitting 08/11/24 21:44 Pulse Oximetry 94 08/11/24 21:44 Oxygen Delivery Method Room Air 08/11/24 21:44 Vital Signs Temperature 98.6 F 08/11/24 21:44 Pulse Rate 100 08/11/24 21:44 Respiratory Rate 16 08/11/24 21:44 Blood Pressure 136/75 08/11/24 21:44 Pulse Oximetry 94 08/11/24 21:44 Oxygen Delivery Method Room Air 08/11/24 21:44 Temperature 98.6 F 08/11/24 21:44 Pulse Rate 100 08/11/24 21:44 Respiratory Rate 16 08/11/24 21:44 Blood Pressure 136/75 08/11/24 21:44 Pulse Oximetry 94 08/11/24 21:44 Oxygen Delivery Method Room Air 08/11/24 21:44 Medications Administered Medications: Discontinued Medications Generic Name Dose Route Start Last Admin Trade Name Ori PRN Reason Stop Dose Admin Lidocaine HCl 6 ml 08/11/24 21:58 08/11/24 22:54 Lidocaine Hcl 2 % Jelly (Top) Sterile TOPICAL 08/11/24 21:59 Not Given ONCE ONE MDM - Abdominal Pain MDM Narrative Medical decision making narrative: This patient comes in reporting lower abdominal pain. He states that he has been unable to void urine all day today. He also has trouble passing stool but states that he is passing gas. A Fuentes catheter was placed and yielded 1100 mL of urine. Urinalysis shows no sign of infection. The patient states that he is feeling much better. The Fuentes catheter is left in place and the patient is instructed to return to clinic in 2 or 3 days to have the catheter removed. Lab Data Labs: Lab Results 08/11/24 Range/Units 22:11 Urine Color Yellow (Yellow) Urine Appearance Clear (Clear) Urine pH 5.5 (5.0-8.5) Ur Specific [place] 1.020 (1.000-1.030) Urine Protein Negative (Negative) Urine Glucose (UA) 2+ A (Negative) Urine Ketones Trace A (Negative) Urine Blood Negative (Negative) Urine Nitrite Negative (Negative) Urine Bilirubin Negative (Negative) Urine Urobilinogen 0.2 (0.2-1.0) Ur Leukocyte Esterase Negative (Negative) Urine RBC 0-2 (0-2) Urine WBC 0-2 (0-5) Ur Squamous Epith Cells Few (None-Few) Urine Bacteria None (None) Discharge Plan Discharge Clinical Impression: Acute urinary retention Patient Disposition: Home, Self-Care Condition: Improved Additional Instructions: Keep Fuentes catheter in place and return to clinic in 2 or 3 days for catheter removal. Return if worsening. Prescriptions: No Action Rytary 36.25-145 mg capsule, extended release 3 cap PO TID rosuvastatin 10 mg tablet 10 mg PO HS venlafaxine 75 mg tablet 75 - 150 mg PO BID Rx Instructions: 2 TABS IN AM, 1 TAB IN PM ketorolac 10 mg tablet PO glimepiride 2 mg tablet 2 mg PO BID acetaminophen 500 mg capsule 500 - 1,000 mg PO Q6H MDD 4000mg PRNQty: 100 0RF diazepam 5 mg tablet 5 mg PO DAILY PRNQty: 5 0RF entacapone 200 mg tablet 200 mg PO TID Patient Comments: TAKE ONE TABLET BY MOUTH THREE TIMES DAILY trazodone 100 mg tablet 200 mg PO HS metformin 1,000 mg tablet 1,000 mg PO BIDWM Patient Comments: TAKE ONE TABLET BY MOUTH TWICE A DAY WITH MEALS gabapentin 300 mg capsule 300 mg PO TID Patient Comments: TAKE ONE CAPSULE BY MOUTH THREE TIMES DAILY Jardiance 25 mg tablet 25 mg PO DAILY Patient Comments: TAKE ONE TABLET BY MOUTH ONE TIME DAILY Eliquis 5 mg tablet 5 mg PO BID Follow Up/Referrals: Reina Robbins DO [Primary Care Provider] - Stand Alone Forms: [facility] Info Instructions
--- OUTSIDE RECORDS SUMMARY | 2024-08-11 22:16 | XMS_ITS | Clinical Summary ---
Author Organization [facility] [employer] [facility] Address [address] [place] [address] Care Team Providers Care Dog Licenser Name Role Phone Reina Robbins DO Primary Care Provider [phone] Allergies Active Allergy Reactions Criticality Noted Date [...] Department Care Team Description 08/11/2024 Nurse Triage [facility] [address] [place] [address] Reina Robbins, DO Constipation 07/27/2024 Refill [facility] [address] [place] [address] Reina Robbins, DO Refill Request (Trazodone) 07/23/2024 Medical Messaging [facility] [address] [place] [address] Reina Robbins DO Referral for Occupational therapy at [facility] 07/23/2024 Telephone [facility] [address] [place] [address] Reina Robbins ArceliaDO Follow Up (MIMA ) 07/22/2024 Telephone [facility] [address] [facility] [place] [address] Reina Robbins DO Outside Order (/work order ) 07/09/2024 10:00 AM FIBERLINE SUPERVISOR Office Visit [facility] [place] [facility] [address] [place] [address] Chuck Devries MD Follow Up (Follow up Parkinson's disease-wants to discuss switching to Sinemet ) 07/09/2024 Telephone [facility] [address] [place] [address] Reina Robbins DO Referral (OCCUPATIONAL THERAPY ORDERS) 07/08/2024 1:45 PM FIBERLINE SUPERVISOR Ancillary Procedure [facility] [address] [place] [address] 07/08/2024 Travel 07/07/2024 9:20 AM FIBERLINE SUPERVISOR Office Visit [address] [address] Reina Robbins DO Diabetes (3 month check); Toe Pain/problem (Stubbed L pinky toe); Leg Pain/problem (R thigh pain since hip fx) 07/07/2024 Travel 07/03/2024 Refill [facility] [address] [place] [address] Reina Robbins DO Refill Request (Rytary) 06/10/2024 Telephone [facility] [address] [place] [address] Reina Robbins Arcelia DO Referral (Physical therapy) 05/15/2024 Refill [facility] [address] [facility] [place] [address] Reina Robbins, DO Refill Request (Diazepam) from [...] on file Legal Sex Male 7:40 AM FIBERLINE SUPERVISOR Gender Identity Not on file Sexual Orientation Not on file Obstetrics History Last Filed Vital Signs Vital Sign Reading Time Taken Comments Blood Pressure 120/74 07/09/2024 10:03 AM FIBERLINE SUPERVISOR Pulse 74 07/09/2024 10:03 AM FIBERLINE SUPERVISOR Temperature 36.2 C (97.2 F) 02/20/2009 11:28 AM CDT Respiratory Rate 16 02/20/2009 12:28 PM CDT Oxygen Saturation 95% 07/09/2024 10:03 AM FIBERLINE SUPERVISOR Inhaled Oxygen Concentration - - Weight 95.8 kg (211 lb 4.8 oz) 07/09/2024 10:03 AM FIBERLINE SUPERVISOR Height 175.2 cm (5' 8.98) 04/04/2024 8:50 AM CD T Body Mass Index 31.23 04/04/2024 8:50 AM CDT Plan of Treatment Upcoming Encounters Date Type Department Care Team (Late st Contact Info) Description 10/07/2024 7:40 AM CDT Office Visit [facility] [address] [place], [place] [id number] Riena Robbins, DO [address] [place] [address] Health Maintenance Due Date Last Done Comments [...] 50+ Completed Medical Devices Implanted Type Area Organ Pipe Finisher Device Identifier Shelf Expiration Date Model / Serial / Lot Log [id number] - [employer] Implant Tray Retinal - 1 - Strip Silcn 1.25x4.0x125 [id number] Implanted:Qty: 1 on 02/20/2009 at [facility] Left: Eye [employer] [id number] / / [id number] Log [id number] - [employer] Implant Tray Retinal - 1 - Sleeve Silcn 1.00i.D.X2.1mm Od [id number] [employer] Implanted:Qty: 1 on 02/20/2009 at [facility] Left: Eye [employer] [id number]# / / [id number] Procedures Procedure Name Priority Date/Time Associated Diagnosis Comments US VENOUS LOWER EXTREMITY RIGHT MIMA 07/08/2024 1:53 PM FIBERLINE SUPERVISOR Right thigh pain HEMOGLOBIN A1C MONITORING (POCT) Routine 07/07/2024 9:15 AM FIBERLINE SUPERVISOR Non-insulin dependent type 2 diabetes mellitus (HC) ANTI HCV Routine 04/04/2024 9:55 AM CDT Need for hepatitis C screening test LIPID PANEL W REFLEX MEASURED LDL Routine 04/04/2024 9:55 AM CDT Screening for lipid disorders SCAN-COLONOSCOPY 01/01/2023 12:0 0 AM CDT from Last 3 Months or Most Recently Relevant to Health Maintenance Results * US VENOUS LOWER EXTREMITY RIGHT (07/08/2024 1:53 PM FIBERLINE SUPERVISOR) Anatomical Region Laterality Modality LEGS, LEG R, Abdomen Ultrasound 07/08/2024 1:55 PM FIBERLINE SUPERVISOR Impressions 07/08/2024 1:55 PM FIBERLINE SUPERVISOR Normal venous ultrasound exam. No evidence of deep vein thrombosis within the right lower extremity. Dictated by Willian Meza MD @ 07/08/2024 1:55:14 PM (Electronically Signed) Narrative 07/08/2024 1:55 PM FIBERLINE SUPERVISOR For Patients: As a result of the [...] HEMOGLOBIN A1C MONITORING (POCT) (07/07/2024 9:15 AM FIBERLINE SUPERVISOR) POC HEMOGLOBIN A1C 8.3(H) <6.0 % OF TOTAL HGB [facility] Comment: Any point of care results exhibiting inconsistency with the patient's clinical status should be repeated using a different testing method. Blood BLOOD SPECIMEN / Unknown 07/07/2024 9:15 AM FIBERLINE SUPERVISOR 07/07/2024 9:16 AM FIBERLINE SUPERVISOR us Reina Arcelia Winstongreta CHEMISTRY Final Result [facility] [address] [place] [address], [facility] [address] [place] [address] * (ABNORMAL) LIPID PANEL W REFLEX MEASURED LDL [RYT3106] (04/04/2024 9:55 AM CDT) CHOLESTEROL, TOTAL 126 [...] LDL-C. Azam LIM et al. FREDERICK. 2013;310(19): 2233-9681 (http://education.NEWGRAND Software.S&N Airoflo/faq/CHN439) CHOL/HDLC RATIO 3.3 <5.0 (calc) [facility] [...] DO CHEMISTRY Final Result Performing Organization Address [facility] Co de Phone Number [facility] [address] [place] [address], [place] [phone] [facility] [address] [place] [address] * ANTI HCV (04/04/2024 9:55 AM CDT) HEPATITIS C ANTIBODY NON-REACTI VE NON-REACT MABLE [facility] Comment: HCV antibody was non-reactive. There is no laboratory evidence of HCV infection. In most cases, no further action is required. However, if recent HCV exposure is suspected, a test for HCV RNA (test code 85802) is suggested. For additional information please refer to http://education.WhenSoon/faq/EVV36j2 (This link is being provided for informational/ educational purposes only.) Blood BLOOD SPECIMEN / Unknown 04/04/2024 9:55 AM CDT 04/04/2024 9:56 AM CDT Reina Monteroantonina DO SEND OUTS Final Result Performing Organization Address [facility] Co de Phone Number [facility] [address] [place] [address], [facility] [address] [place] [address] * SCAN-COLONOSCOPY (01/01/2023 12:00 AM CDT) Scanner OTHER Final Result from Last 3 Months or Most Recently Relevant to Health Maintenance Insurance [address] MEDICARE ADVANTAGE [place] [id number] Advance Directives Documents on File Type Date Recorded Patient Energy Technician Expl anation Healthcare Directive 02/21/2024 2:35 PM He althcare Directive * Full Code (Latest Code Status on File) Date Activated Date Inactivated Comments 02/20/2009 9:05 AM 02/20/2009 2:42 PM Care Teams Dog Licenser Relationship Specialty Start Date End Date Reina Robbins DO [address] [place] [address] PCP - General Family Practice 02/21/24
[2024-08-11 22:23] LABS: Appearance Urine Clear (Clear); Bilirubin Urine Negative (Negative); Blood Urine Negative (Negative); Color Urine Yellow (Yellow); Glucose Urine 2+ (Negative); Ketones Urine Trace (Negative); Leukocyte Esterase Urine Negative (Negative); Nitrite Urine Negative (Negative); Protein Urine Negative (Negative); Urobilinogen Urine 0.2 (0.2-1.0); pH Urine 5.5 (5.0-8.5)
[2024-08-11 22:43] LABS: RBC Urine 0-2 (0-2); Squamous Epithelial Cell Urine Few (None-Few); WBC Urine 0-2 (0-5)
== END 2024-08-11 23:02 | disposition home or self-care (01) ==
PROVIDERS: Emergency Provider Emergency Medicine Emergency Medical Services; PCP Family Medicine
DX: R33.9 Retention of urine, unspecified (principal)
CPT/HCPCS: 51702; 51798; 81001; 99283; 99284